=== PATIENT | male | born 1935 | race Caucasian/White ===

== ENCOUNTER → 2016-09-18 13:54 | Outpatient (CLI) | payer MEDICARE ==
[2011-08-13 06:38] VITALS: BMI 32.6
== END | disposition home or self-care (01) ==
LOC: D.US 13:54
DX: M79.672 Pain in left foot (principal); M79.671 Pain in right foot

== ENCOUNTER → 2018-02-10 11:41 | Outpatient (CLI) | payer MEDICARE ==
[2011-08-13 06:38] VITALS: BMI 32.6
[2018-02-10 13:01] LABS: INR 2.06 (0.85-1.17); PROTIME 22.9 SECONDS (11.6-15.0)
== END | disposition home or self-care (01) ==
LOC: D.LABREF 11:41
PROVIDERS: Emergency Medicine
DX: Z51.81 Encounter for therapeutic drug level monitoring (principal); Z79.01 Long term (current) use of anticoagulants

== ENCOUNTER → 2018-02-24 10:46 | Outpatient (CLI) | payer MEDICARE ==
[2011-08-13 06:38] VITALS: BMI 32.6
[2018-02-24 13:14] LABS: INR 3.15 (0.85-1.17); PROTIME 31.6 SECONDS (11.6-15.0)
== END | disposition home or self-care (01) ==
LOC: D.LABREF 10:46
PROVIDERS: Emergency Medicine
DX: Z79.01 Long term (current) use of anticoagulants (principal); I48.91 Unspecified atrial fibrillation

== ENCOUNTER → 2018-03-10 11:42 | Outpatient (CLI) | payer MEDICARE ==
[2011-08-13 06:38] VITALS: BMI 32.6
[2018-03-10 14:00] LABS: INR 2.52 (0.85-1.17); PROTIME 26.4 SECONDS (11.6-15.0)
== END | disposition home or self-care (01) ==
LOC: D.LABREF 11:42
PROVIDERS: Emergency Medicine
DX: Z51.81 Encounter for therapeutic drug level monitoring (principal); Z79.01 Long term (current) use of anticoagulants

== ENCOUNTER → 2018-03-24 13:11 | Outpatient (CLI) | payer MEDICARE ==
[2011-08-13 06:38] VITALS: BMI 32.6
[2018-03-24 16:26] LABS: INR 2.96 (0.85-1.17); PROTIME 30.1 SECONDS (11.6-15.0)
== END | disposition home or self-care (01) ==
LOC: D.LABREF 13:11
PROVIDERS: Emergency Medicine
DX: Z51.81 Encounter for therapeutic drug level monitoring (principal); Z79.01 Long term (current) use of anticoagulants; Z86.718 Personal history of other venous thrombosis and embolism

== ENCOUNTER → 2018-04-08 12:01 | Outpatient (CLI) | payer MEDICARE ==
[2011-08-13 06:38] VITALS: BMI 32.6
[2018-04-08 13:26] LABS: INR 3.3 (0.85-1.17); PROTIME 32.8 SECONDS (11.6-15.0)
== END | disposition home or self-care (01) ==
LOC: D.LABREF 12:01
PROVIDERS: Emergency Medicine
DX: R79.1 Abnormal coagulation profile (principal)

== ENCOUNTER → 2018-04-14 14:13 | Outpatient (CLI) | payer MEDICARE ==
[2011-08-13 06:38] VITALS: BMI 32.6
[2018-04-14 15:29] LABS: INR 2.88 (0.85-1.17); PROTIME 29.4 SECONDS (11.6-15.0)
== END | disposition home or self-care (01) ==
LOC: D.LABREF 14:13
PROVIDERS: Emergency Medicine
DX: Z51.81 Encounter for therapeutic drug level monitoring (principal); Z79.01 Long term (current) use of anticoagulants

== ENCOUNTER → 2018-04-21 14:17 | Outpatient (CLI) | payer MEDICARE ==
[2011-08-13 06:38] VITALS: BMI 32.6
[2018-04-21 17:44] LABS: INR 3.12 (0.85-1.17); PROTIME 31.3 SECONDS (11.6-15.0)
== END | disposition home or self-care (01) ==
LOC: D.LABREF 14:17
PROVIDERS: Emergency Medicine
DX: Z51.81 Encounter for therapeutic drug level monitoring (principal); Z79.01 Long term (current) use of anticoagulants

== ENCOUNTER → 2018-05-05 12:48 | Outpatient (CLI) | payer MEDICARE ==
[2011-08-13 06:38] VITALS: BMI 32.6
[2018-05-05 13:10] LABS: INR 2.53 (0.85-1.17); PROTIME 26.6 SECONDS (11.6-15.0)
== END | disposition home or self-care (01) ==
LOC: D.LABREF 12:48
PROVIDERS: Emergency Medicine
DX: Z51.81 Encounter for therapeutic drug level monitoring (principal); Z79.01 Long term (current) use of anticoagulants; Z86.718 Personal history of other venous thrombosis and embolism

== ENCOUNTER → 2018-06-29 16:42 | Outpatient (CLI) | payer MEDICARE ==
[2011-08-13 06:38] VITALS: BMI 32.6
[2018-06-29 17:22] LABS: INR 1.2 (0.85-1.17); PROTIME 14.7 SECONDS (11.6-15.0)
== END | disposition home or self-care (01) ==
LOC: D.LABREF 16:42
PROVIDERS: ATTEND Emergency Medicine
DX: Z51.81 Encounter for therapeutic drug level monitoring (principal); Z79.01 Long term (current) use of anticoagulants

== ENCOUNTER → 2018-07-30 13:36 | Outpatient (CLI) | payer MEDICARE ==
[2011-08-13 06:38] VITALS: BMI 32.6
[2018-07-30 15:25] LABS: INR 1.45 (0.85-1.17); PROTIME 17.1 SECONDS (11.6-15.0)
== END | disposition home or self-care (01) ==
LOC: D.LABREF 13:36
PROVIDERS: ATTEND Emergency Medicine
DX: C95.90 Leukemia, unspecified not having achieved remission (principal); Z51.81 Encounter for therapeutic drug level monitoring; Z79.01 Long term (current) use of anticoagulants

== ENCOUNTER 2018-12-26 17:52 | Inpatient (IN) | payer MEDICARE ==
[~2018-12-26] VITALS: Ht 172.7 cm; Wt 78.1 kg
--- NOTE | ~2018-12-26 | HEMODYNAMI ---
PATIENT:JOSE ROTHMAN MEDICAL RECORD: [id number] : 39 LOCATION:[facility] D.2124 [facility]# [id number] ADMISSION DATE: 12/27/18 Generatedon:01/04/201915:16 Patient name: JOSE ROTHMAN Patient #: [id number] SSN: [id number] : 1935 Date of study: 01/04/2019 Page: Of Hemodynamic Procedure Report Patient Data Patient Demographics Procedure consent was obtained First Name: JOSE Gender: Male Last Name: LORNA : 1935 Middle Initial: W Age: 83 year(s) Patient #: [id number] Race: SSN: [id number] Additional ID: [id number] Contact details [address]: [address] [place] [address] State: [place] City: [place] Zip code: [address] Admission Admission Data Admission Date: 12/27/2018 Admission Time: 18:30 Arrival Date: 12/26/2018 Arrival Time: 21:09 Admit Source: Emergency Insurance Payor: Medicare, department Private health insurance Room #: D.2124 [facility] #: [id number] Height (in.): 68 BSA: 1.89 (m2) Height (cm.): 172.72 BMI: 25.39 (kg/m2) Weight (lbs.): 167 Weight (kg.): 75.75 Lab Results Lab Result Date: 01/04/2019 Lab Result Time: 0:00 Biochemistry Name Units Result Min Max BUN mg/dl 58 --(----)-* 7 18 Creatinine mg/dl 1.7 --(----)-* 0.6 1.3 eGFR ml/min 41 *-(----)-- 90 120 NONAFRICAN CBC Name Units Result Min Max Hemoglobin g/dl 9.5 *-(----)-- 13.5 17.5 Procedure Procedure Types Cath Procedure Peripheral Cath Diagnostic Procedure Product Inspection Coordinator Peripheral Procedures Abd/Extremity Extremities Right Lower Ext Arterio Peripheral vascular Intervention Stent Stent-Fem/Popw/plasty Procedure Description Procedure Date Procedure Date: 01/04/2019 Procedure Start Time: 14:30 Procedure End Time: 15:08 Procedure Staff Name Function Jake Borges MD Performing Physician Idania Canales RT Monitor Josselyn Olson RT Scrub Monica Galvez RN Nurse Parminder Garcia RN Nurse Procedure Data Cath Procedure Fluoroscopy Diagnostic fluoroscopy Total fluoroscopy Time: 9.7 time: 9.7 min min Diagnostic fluoroscopy Total fluoroscopy dose: 225 dose: 225 mGy mGy Contrast Material Contrast Material Type Amount (ml) Isovue 300 50 Entry Location Entry Primary Successful Side Size Upsize Upsize Entry Closure Succes sful Closure Location (Fr) 1 (Fr) 2 (Fr) Remarks Device Remarks Femoral Right 6 Fr 6 Fr 6 Fr Exoseal artery Short Long Short Estimated blood loss: 5 ml Diagnostic catheters Device Type Used For End Catheter Placement DIAGNOSTIC IM 5Fr Multi-vessel catheter ([id number]) Angiography Procedure Complications No complications Procedure Medications Medication Administration Route Dosage 0.9% NaCl I.V. 100 ml/hr Oxygen etCO2 Nasal cannula 2 l/min Lidocaine 2% added to field 20 Heparin Flush Bag added to field 2 bags (1000units/500ml NS) Versed I.V. 2 mg Fentanyl I.V. 25 mcg Heparin Bolus I.V. 5000 units Fentanyl I.V. 50 mcg Fentanyl I.V. 25 mcg Hemodynamics Rest BSA: 1.89 (m2) HGB: 9.5 (g/dl) O2 Consumption: Estimated: 223.19 (ml/min) O2 Con sumption indexed: Estimated:118.09 (ml/min/m) Heart Rate: 81 (bpm) Snapshots Pre Cath Intra NCS Post Cath Vital Signs Time Heart Resp SPO2 etCO2 NIBP (mmHg) Rhythm Pain Sedation Rate (ipm) (%) (mmHg) Status Level (bpm) 14:18:05 79 13 97 25 146/78(118) NSR 0 (11) 10(A) , No pain 14:22:23 79 15 97 11.2 155/78(113) NSR 0 (11) 10(A) , No pain 14:26:44 80 20 98 2.2 156/79(110) NSR 0 (11) 9(A) , No pain 14:31:00 84 15 98 16.4 151/73(113) NSR 0 (11) 9(A) , No pain 14:35:18 81 17 98 21.6 144/76(117) NSR 0 (11) 9(A) , No pain 14:39:36 78 19 98 17.1 150/75(123) NSR 0 (11) 9(A) , No pain 14:43:58 81 16 98 19.4 145/68(102) NSR 0 (11) 9(A) , No pain 14:48:16 77 18 99 17.9 140/75(109) NSR 0 (11) 9(A) , No pain 14:52:34 76 30 99 11.9 149/69(112) NSR 0 (11) 9(A) , No pain 14:56:54 75 29 99 11.9 152/74(111) NSR 0 (11) 9(A) , No pain 15:01:14 75 14 99 11.2 144/69(100) NSR 0 (11) 10(A) , No pain 15:05:34 77 21 100 20.9 144/68(108) NSR 0 (11) 10(A) , No pain Medications Time Medication Route Dose Verified Delivered Reason Notes Effectiveness by by 14:17:05 0.9% NaCl I.V. 100 Jake Monica used for ml/hr [facility] procedure MD MELARA 14:17:12 Oxygen etCO2 2 Jake Monica used for Nasal l/min [facility] procedure cannula MD MELARA 14:17:17 Lidocaine 2% added 20ml Jake Joseph for local to vial [facility] anesthetic field MD JONES 14:17:22 Heparin Flush added 2 Jake Jake used for Bag to bags [facility] procedure (1000units/500ml field MD JONES NS) 14:22:47 Versed I.V. 2 mg Jake Monica for sedation St Tereso Galvez MD, RN 14:22:57 Fentanyl I.V. 25 Jake Monica for sedation colin Valentine MD, RN 14:37:30 Heparin Bolus I.V. 5000 Jake Monica for verif ied units [facility] anticoagulation with Dr. MD MELARA [place] 14:55:36 Fentanyl I.V. 50 Jake Monica for sedation colin Valentine MD RN 15:06:28 Fentanyl I.V. 25 Jake Anderson for sedation [facility] [place] Tereso Galvez MD racing manager Log Time Note 13::19 Informed consent obtained and on chart 13::28 Diagnostic Cath Status : Elective 13::47 Patient Weight : 167 lbs 13::47 Patient Height : 68 inches 13:32:20 Monica Galvez RN sent for patient. Start room use. 13:32:21 Time tracking: Regular hours (M-F 7:00 - 5:00) 13:32:26 Plan of Care:Hemodynamics will remain stable., Cardiac rhythm will remain stable., Comfort level will be maintained., Respiratory function will remain adequate., Patient/ family verbilizes understanding of procedure., Procedure tolerated without complication., Recovers from procedure without complications.. 13:32:30 Procedure Status Peripheral. 14:03:39 Warm blankets applied, and jenna hugger turned on for patient comfort. 14:03:40 Correct patient and procedure confirmed by team. 14:03:41 ECG and BP/O2 sat monitors applied to patient. 14:04:11 Patient received from Zdorovio II to CCL 2 Alert and oriented. Tansferred to table in Supine position. 14:16:55 Vital chart was started 14:17:05 0.9% NaCl 100 ml/hr I.V. was administered by Monica Galvez RN; used for procedure; Verbal order read back and verified. 14:17:12 Oxygen 2 l/min etCO2 Nasal cannula was administered by Monica Galvez RN; used for procedure; Verbal order read back and verified. 14:17:17 Lidocaine 2% 20ml vial added to field was administered by Jake Borges MD; for local anesthetic; Verbal order read back and verified. 14:17:22 Heparin Flush Bag (1000units/500ml NS) 2 bags added to field was administered by Jake Borges MD; used for procedure; Verbal order read back and verified. 14:19:20 Baseline sample Acquired. 14:19:30 Rhythm: sinus rhythm 14:19:34 Full Disclosure recording started 14:19:38 H&P Date Dictated: 01/04/2019 Within 30 days and on chart.. 14:19:40 Pre-procedure instructions explained to patient. 14:19:40 Pre-op teaching completed and patient verbalized understanding. 14:19:42 Family in patients room. 14:19:47 Patient NPO since Midnight. 14:19:48 Is the patient allergic to Iodine/contrast media? No. 14:19:57 Was the patient premedicated? Yes 14:19:59 Is patient on blood thinner?Yes 14:20:02 ACC The patient was administered the following blood thiners within the last 24 hours: ACCPlavix 14:20:07 Patient diabetic? No. 14:20:10 Previous problem with sedation/anesthesia? No ? 14:20:11 Snore? Yes 14:20:12 Sleep apnea? Yes 14:20:13 Deviated septum? No 14:20:14 Opens mouth fully? Yes 14:20:14 Sticks out tongue? Yes 14:20:34 Airway obstruction? No ? 14:20:37 Dentures? No ? 14:20:42 Pre procedure: right dorsailis pedis pulse Doppler 14:20:54 Pre procedure: left dorsailis pedis pulse Doppler 14:20:57 Patient pain scale 0/10 ?. 14:21:06 IV patent on arrival in left forearm with 0.9% NaCl at [facility]. 14:21:09 Lab results completed and on chart. 14:21:33 Bilateral groins area was prepped with chlora-prep and draped in sterile fashion 14:21:34 Alarms reviewed by R. N. 14:21:34 Sharps counted by scrub and verified by R.N. 14:21:36 Physician arrived 14:21:37 --------ALL STOP TIME OUT------ 14:21:37 Final Timeout: patient, procedure, and site verified with staff and physician. All members of the team are in agreement. 14:21:42 Bilateral groins site verified by team. 14:21:46 Fire Safety Assessment: A--An alcohol-based skin anteseptic being used preoperatively., C--Open oxygen or nitrous oxide is being used., D--An ESU, laser, or fiber-optic light is being used. 14:22:04 Physical assessment completed. ASA score P 2 - A patient with mild systemic disease as per Jake Borges MD. 14:22:09 Sedation plan: IV Moderate Sedation Medication:Versed, Fentanyl 14:22:47 Versed 2 mg I.V. was administered by Monica Galvez RN; for sedation; Verbal order read back and verified. 14:22:57 Fentanyl 25 mcg I.V. was administered by Monica Galvez RN; for sedation; Verbal order read back and verified. 14:23:36 3b) 30-44 Moderately reduced kidney function. 14:24:04 Maximum allowable contrast dose (3.7 X eGFR X 0.75)113 ml. 14:24:08 Sedation plan: IV Moderate Sedation Medication:Versed, Fentanyl 14:24:22 Use device set Acist 14:24:25 ACIST Syringe (25219) opened to sterile field. 14:24:26 ACIST Hand Control (04909) opened to sterile field. 14:24:27 ACIST Manifold (79938) opened to sterile field. 14:25:10 GLIDE WIRE Super Stiff Angled 260cm ([id number]) opened to sterile field. 14:25:10 INFLATOR Merit BasixCompak (AT5712) opened to sterile field. 14:25:11 SHEATH 6FR Charlotte (XYK146) opened to sterile field. 14:26:34 Zero performed for pressure channel P1 14:28:40 Procedure started. 14:30:44 Local anesthetic to left femerol artery with Lidocaine 2% by Jake Borges MD.INITIAL ACCESS ONLY 14:31:32 A 6 Fr Short sheath was inserted into the Right Femoral artery 14:31:33 GUIDE 6FR RENARD 90 catheter ([id number]) opened to sterile field. 14:32:34 6 Fr RENARD guide catheter was inserted over the wire 14:32:48 Catheter removed. 14:34:51 A DIAGNOSTIC IM 5Fr catheter ([id number]) was advanced over the wire and used for Multi-vessel Angiography. 14:35:59 TORQUE DEVICE PLASTIC .038 ( TD01) opened to sterile field. 14:37:01 Right leg runoff performed. 14:37:30 Heparin Bolus 5000 units I.V. was administered by Monica Galvez RN; for anticoagulation; verified with Dr. Cruz Verbal order read back and verified. 14:40:26 Catheter removed. 14:40:35 Sheath upsized to a 6 Fr Long. 14:42:21 GLIDE wire advanced. 14:42:29 Wire advanced across lesion. 14:48:43 Inflate balloon Inflation number: 1 A POWERFLEX PRO 6.0 x 100 x 135cm balloon ([id number]) was prepped and advanced across the Mid Superficial Femoral, Right 100, then inflated to 10 JORGE LUIS for 0:30 (min:sec) . 14:51:11 Balloon removed over the wire. 14:54:43 SMART 6 X 120 X 120 stent ([id number]) was deployed across Mid Superficial Femoral, Right . 14:55:36 Fentanyl 50 mcg I.V. was administered by Monica Galvez RN; for sedation; Verbal order read back and verified. 14:56:46 SMART 6 X 120 X 120 stent ([id number]) was deployed across Mid Superficial Femoral, Right . 14:56:51 Stent catheter was removed intact over wire. 14:58:43 Inflation number: 2 The POWERFLEX PRO 6.0 x 100 x 135cm balloon ([id number]) was reinflated across the Mid Superficial Femoral, Right , to 12 JORGE LUIS for 0:30 (min:sec) . 14:59:19 Inflation number: 3 The POWERFLEX PRO 6.0 x 100 x 135cm balloon ([id number]) was reinflated across the Mid Superficial Femoral, Right , to 12 JORGE LUIS for 0:30 (min:sec) . 14:59:42 Balloon removed over the wire. 15:01:27 Sheath upsized to a 6 Fr Short. 15:01:30 ACT drawn and resulted at 277 seconds. (normal therapeutic range 180-240 seconds). 15:02:28 EXOSEAL 6Fr (EX600) opened to sterile field. 15:03:54 Wire removed. 15:04:29 Sheath removed intact; hemostasis achieved with Exoseal to the Right Femoral artery. 15:04:32 Procedure ended.(Physican Out) 15:04:37 Fluoroscopy time 09.70 minutes. 15:04:41 Flurop Dose total: 225 15:04:41 Fluoroscopy dose: 225 mGy 15:04:56 Dose Area Product 82307 mGy/cm. 15:05:02 Contrast amount:Isovue 300 50ml. 15:05:23 Sharps counted by scrub and verified by R.N. 15:05:35 Insertion/operative site no bleeding no hematoma. 15:05:40 Post-op/insertion site Left Femoral artery dressed using a 4 x 4 and Tegaderm. 15:06:04 Post Procedure Pulses reassessed and unchanged 15:06:10 Post procedure rhythm: unchanged. 15:06:24 Estimated blood loss: 5 ml 15:06:25 Post procedure instruction explained to patient.Patient verbalizes understanding. 15:06:26 Patient needs reinforcement of post procedure teaching. 15:06:28 Fentanyl 25 mcg I.V. was administered by Monica Galvez RN; for sedation; Verbal order read back and verified. 15:07:23 Procedure type changed to Cath procedure, Peripheral Cath Diagnostic Procedure, Product Inspection Coordinator Peripheral Procedures, Abd/Extremity, Extremities, Right Lower Ext Arterio, Peripheral vascular Intervention, Stent, Stent-Fem/Popw/plasty 15:08:16 Procedure and supply charges have been captured, reviewed, submitted and are correct. 15:08:20 Procedure Complication : No complications 15:08:23 Vital chart was stopped 15:08:27 AFRO Findings: PVD: SOUND INSTALLATION WORKER performed (see procedure notes) 15:08:29 Operative report dictated upon procedure completion. 15:08:29 See physician's report for complete and final results. 15:08:38 Report given to [facility]. 15:08:42 Patient transfered to [facility] with Stretcher. 15:08:52 Procedure ended. 15:08:52 Full Disclosure recording stopped 15:09:36 ACC-PCI Only Patient was given prescriptions, or instructed by Jake Borges MD to start/continue the following medications upon discharge: Plavix 15:09:37 End room use (Document Last) Intervention Summary Intervention Notes Time ActionType Lesion and Equipment Action# Pressure Duration Attributes Used 14:48:43 Inflate Mid POWERFLEX 1 10 00:30 balloon Superficial PRO 6.0 x Femoral, 100 x Right 135cm balloon ([id number]) 14:54:43 Deploy self Mid SMART 6 X 1 expanding Superficial 120 X 120 stent Femoral, stent Right ([id number]) 14:56:46 Deploy self Mid SMART 6 X 2 expanding Superficial 120 X 120 stent Femoral, stent Right ([id number]) 14:58:43 Reinflate Mid POWERFLEX 2 12 00:30 balloon Superficial PRO 6.0 x Femoral, 100 x Right 135cm balloon ([id number]) 14:59:19 Reinflate Mid POWERFLEX 3 12 00:30 balloon Superficial PRO 6.0 x Femoral, 100 x Right 135cm balloon ([id number]) Device Usage Item Name Manufacture Quantity Catalog Hospital Part Current Minimal Lo t# / Number Charge Number Stock Stock Serial# Code ACIST Acist 1 73404 951572 001164 202864 20 Syringe Medical (28224) Systems Inc ACIST Hand Acist 1 85604 660028 189046 092018 5 Control Medical (08758) Systems Inc ACIST Acist 1 45280 484025 942011 771804 5 Manifold Medical (47072) Systems Inc GLIDE WIRE Terumo 1 FO9340 925907 105244 443199 5 Super Stiff Angled 260cm (XC8369) INFLATOR Merit 1 CL9977 777790 197221 396902 15 [employer] Medical BasixCompak (UH4253) SHEATH 6FR Terumo 1 BGO604 495205 109114 001549 40 Charlotte (RKR199) GUIDE 6FR Medtronic 1 [id number] 590095 55352 368615 1 RENARD 90 catheter ([id number]) DIAGNOSTIC Cardinal 1 [id number] 929374 699673 970102 5 IM 5Fr Health catheter ([id number]) TORQUE [place] 1 TD01 157165 540454 041742 5 DEVICE Scientific PLASTIC .038 ( TD01) POWERFLEX Cardinal 1 [id number] 127317 336438 740166 5 PRO 6.0 x Health 100 x 135cm balloon ([id number]) SMART 6 X Cardinal 1 [id number] 756157 632884 300544 0 17 004010 120 X 120 Health stent ([id number]) EXOSEAL 6Fr Cardinal 1 EX600 685076 188718 283594 10 (EX600) Health Signature Audit [place] Stage Time Signature Unsigned Intra-Procedure 01/04/2019 Idania Canales 3:12:44 PM RT(R) Intra-Procedure 01/04/2019 Parminder 3:16:20 PM Radha MELARA Intra-Procedure 01/04/2019 Jake Landin 3:16:45 PM Tereso JONES Signatures Performing Physician : Signature : Jake Borges MD Date : Time : Monitor : Idania Parker RT Signature : Date : Time : Nurse : Monica Lenny RN Signature : Date : Time : Nurse : Parminder Lorigan Signature : RN Date : Time : [place] [address] [place] [address]
--- NOTE | ~2018-12-26 | HEMODYNAMI ---
PATIENT:JOSE ROTHMAN MEDICAL RECORD: [id number] : 39 LOCATION:[facility] D.2[address] [facility]# [id number] ADMISSION DATE: 12/26/18 Generatedon:12/27/201811:43 Patient name: JOSE ROTHMAN Patient #: [id number] SSN: [id number] : 1935 Date of study: 12/27/2018 Page: Of Hemodynamic Procedure Report Patient Data Patient Demographics Procedure consent was obtained First Name: JOSE Gender: Male Last Name: LORNA : 1935 Middle Initial: W Age: 83 year(s) Patient #: [id number] Race: SSN: [id number] Additional ID: [id number] Contact details [address]: [address] [place] [address] State: [place] City: [place] Zip code: [address] Admission Admission Data Admission Date: 12/26/2018 Admission Time: 21:09 Arrival Date: 12/26/2018 Arrival Time: 21:09 Admit Source: Emergency Insurance Payor: Medicare, department Private health insurance Room #: D.2129 [facility] #: [id number] Height (in.): 68 BSA: 1.89 (m2) Height (cm.): 172.72 BMI: 25.39 (kg/m2) Weight (lbs.): 167 Weight (kg.): 75.75 Lab Results Lab Result Date: 12/27/2018 Lab Result Time: 0:00 Biochemistry Name Units Result Min Max BUN mg/dl 22 --(----)-* 7 18 Creatinine mg/dl 1.3 --(---*)-- 0.6 1.3 eGFR ml/min 56 *-(----)-- 90 120 NONAFRICAN CBC Name Units Result Min Max Hemoglobin g/dl 10.4 *-(----)-- 13.5 17.5 Procedure Procedure Types Cath Procedure Diagnostic Procedure LHC LHC w/Coronaries Sedation Charges Moderate Sedation up to 45 minutes PCI Procedure Coronary Stent Coronary Stent Initial Peripheral Cath Diagnostic Procedure Supervisor Bakery Sanitation Peripheral Procedures Nsoyi-Qgkrqwn-Aea-Off Procedure Description Procedure Date Procedure Date: 12/27/2018 Procedure Start Time: 10:52 Procedure End Time: 11:31 Procedure Staff Name Function Jake Borges MD Performing Physician Idania Canales RT Monitor Kaia Pickett RT Scrub Jessica Lomas RN Nurse Procedure Data Cath Procedure Fluoroscopy Diagnostic fluoroscopy Total fluoroscopy Time: 9.9 time: 9.9 min min Diagnostic fluoroscopy Total fluoroscopy dose: 856 dose: 856 mGy mGy Contrast Material Contrast Material Type Amount (ml) Isovue 300 202 Entry Location Entry Primary Successful Side Size Upsize Upsize Entry Closure Succes sful Closure Location (Fr) 1 (Fr) 2 (Fr) Remarks Device Remarks Femoral Right 5 Fr 6 Fr 6 Fr Exoseal artery Long Short Estimated blood loss: 5 ml Diagnostic catheters Device Type Used For End Catheter Placement MULTIPACK JL 4.0 5Fr Left Coronary catheter Angiography MULTIPACK 3DRC 5Fr Right Coronary catheter Angiography DIAGNOSTIC AR1 MOD 5Fr Right Coronary catheter ([id number]) Angiography DIAGNOSTIC AR1 MOD 5Fr Right Coronary catheter ([id number]) Angiography DIAGNOSTIC AL1 5Fr LV Angiography catheter ([id number]) MULTIPACK Pigtail 5 Fr LV Angiography catheter DIAGNOSTIC UF 5Fr Multi-vessel catheter ([id number]) Angiography Procedure Complications No complications Procedure Medications Medication Administration Route Dosage Oxygen etCO2 Nasal cannula 2 l/min Lidocaine 2% added to field 20 Heparin Flush Bag added to field 2 bags (1000units/500ml NS) 0.9% NaCl I.V. 100 ml/hr Fentanyl I.V. 100 mcg Versed I.V. 2 mg Versed I.V. 1 mg Fentanyl I.V. 50 mcg Versed I.V. 1 mg Fentanyl I.V. 50 mcg Heparin Bolus I.V. 4000 units Integrilin (Bolus I.V. 6.8 ml 2mg/ml) 0.9% NaCl I.V. bolus 500 ml Plavix P.O. 600 mg Hemodynamics Rest BSA: 1.89 (m2) HGB: 10.4 (g/dl) O2 Consumption: Estimated: 218.52 (ml/min) O2 Co nsumption indexed: Estimated:115.62 (ml/min/m) Heart Rate: 74 (bpm) Pressure Samples Time Site Value (mmHg) Purpose Heart Use Rate(bpm) 11:10 LV 116/3,10 Snapshot 65 11:11 AO 76/35(50) Pullback 58 11:11 LV 109/9,12 Pullback 58 Gradients Valve Time Site 1 Site 2 Mean SEP/DFP Peak To Heart Use (mmHg) (sec/min) Peak Rate (mmHg) (bpm) Aortic 11:11 LV AO 29 20 33 58 109/9,12 76/35(50) Calculations Valve P-P Mean Valve Index Valve Source Name Gradient Area Flow (cm2) Aortic 33 29 33 29 Snapshots Pre Cath Intra NCS Post Cath Vital Signs Time Heart Resp SPO2 etCO2 NIBP (mmHg) Rhythm Pain Sedation Rate (ipm) (%) (mmHg) Status Level (bpm) 10:45:12 64 12 97 13.6 143/67(125) NSR 0 (11) 10(A) , No pain 10:49:31 59 14 97 1.5 126/60(111) NSR 0 (11) 10(A) , No pain 10:53:52 58 11 100 0 111/59(88) NSR 0 (11) 10(A) , No pain 10:58:06 56 16 100 0 113/59(94) NSR 0 (11) 9(A) , No pain 11:02:26 58 11 100 0 97/46(71) NSR 0 (11) 9(A) , No pain 11:06:40 58 11 100 0 90/45(66) NSR 0 (11) 9(A) , No pain 11:10:50 59 10 100 11.3 81/46(66) NSR 0 (11) 9(A) , No pain 11:14:58 57 11 100 8.3 81/45(66) NSR 0 (11) 9(A) , No pain 11:19:05 49 11 100 11.3 83/42(65) NSR 0 (11) 9(A) , No pain 11:23:15 57 10 100 3 77/41(56) NSR 0 (11) 9(A) , No pain 11:27:21 55 11 100 8.2 82/45(65) NSR 0 (11) 9(A) , No pain 11:31:27 61 12 100 10.5 101/52(88) NSR 0 (11) 10(A) , No pain Medications Time Medication Route Dose Verified Delivered Reason Notes Effectiveness by by 10:48:25 Oxygen etCO2 2 Jake Lopez used for Nasal l/min St Tereso Lomas RN procedure cannula 10:48:32 Lidocaine 2% added 20ml Jake Joseph for local to vial [facility] anesthetic field MD JONES 10:48:38 Heparin Flush added 2 Jake Joseph used for Bag to bags [facility] procedure (1000units/500ml field MD JONES NS) 10:48:47 0.9% NaCl I.V. 100 Jake Lopez Per physician ml/hr St Tereso Lomas RN, MD 10:51:14 Versed I.V. 2 mg Jake Lopez for sedation St Tereso Lomas RN, MD 10:51:50 Fentanyl I.V. 100 Jake Lopez for sedation mcg St Tereso Lomas RN, MD 10:55:15 Versed I.V. 1 mg Jake Lopez for sedation St Tereso Lomas RN, MD 10:55:19 Fentanyl I.V. 50 Jake Lopez for sedation mcg St Tereso Lomas RN, MD 11:03:01 0.9% NaCl I.V. 500 Jake Lopez Per physician bolus ml St Tereso Lomas RN, MD 11:04:35 Versed I.V. 1 mg Jake Lopez for sedation St Tereso Lomas RN, MD 11:04:39 Fentanyl I.V. 50 Jake Jefferyie for sedation mcg St Tereso Lomas RN, MD 11:12:58 Heparin Bolus I.V. 4000 Jake Lopez for verif ied units St Tereso Lomas RN anticoagulation with dr MD walker 11:13:09 Integrilin I.V. 6.8 Jake Lopez for waste d (Bolus 2mg/ml) ml St Tereso Lomas RN antiplatelet 3.2 ml MD therapy of vial 11:32:04 Plavix P.O. [address] for mg [address] Tereso Lomas RN antiplatelet therapy Procedure Log Time Note 10:21:43 Diagnostic Cath Status : Elective 10:24:20 Jessica Lomas RN sent for patient. Start room use. 10:24:21 Time tracking: Regular hours (M-F 7:00 - 5:00) 10:24:25 Plan of Care:Hemodynamics will remain stable., Cardiac rhythm will remain stable., Comfort level will be maintained., Respiratory function will remain adequate., Patient/ family verbilizes understanding of procedure., Procedure tolerated without complication., Recovers from procedure without complications.. 10:26:05 Informed consent obtained and on chart 10:29:43 Admit Source: Emergency department 10:29:47 Arrival Date: 12/26/2018 9:09:00 PM 10:29:55 Insurance Payor : Private health insurance, Medicare 10:30:21 Patient Weight : 167 lbs 10:30:25 Patient Height : 68 inches 10:30:30 Patient received from Med II to CCL 1 Alert and oriented. Tansferred to table in Supine position. 10:30:31 Warm blankets applied, and jenna hugger turned on for patient comfort. 10:30:31 Correct patient and procedure confirmed by team. 10:30:33 ECG and BP/O2 sat monitors applied to patient. 10:43:56 Vital chart was started 10:43:58 Baseline sample Acquired. 10:44:00 Full Disclosure recording started 10:44:04 H&P Date Dictated: 12/27/2018 New H&P dictated by physician.. 10:44:05 Pre-procedure instructions explained to patient. 10:44:06 Pre-op teaching completed and patient verbalized understanding. 10:44:08 Family in patients room. 10:44:10 Patient NPO since Midnight. 10:44:26 Is the patient allergic to Iodine/contrast media? No. 10:44:27 Was the patient premedicated? No 10:44:29 Is patient on blood thinner?No 10:44:32 Patient diabetic? No. 10:44:35 Previous problem with sedation/anesthesia? No ? 10:44:36 Snore? Yes 10:44:37 Sleep apnea? Yes 10:44:38 Deviated septum? No 10:44:39 Opens mouth fully? Yes 10:44:40 Sticks out tongue? Yes 10:44:57 Airway obstruction? No ? 10:45:01 Dentures? Yes in tight 10:46:35 Pre procedure: right dorsailis pedis pulse Doppler 10:46:38 Pre procedure: left dorsailis pedis pulse Doppler 10:46:40 Patient pain scale 0/10 ?. 10:46:47 IV patent on arrival in right forearm with 0.9% NaCl at [facility]. 10:46:49 Lab results completed and on chart. 10:46:54 Bilateral groins area was prepped with chlora-prep and draped in sterile fashion 10:46:56 Alarms reviewed by R. N. 10:46:57 Sharps counted by scrub and verified by R.N. 10:48:25 Oxygen 2 l/min etCO2 Nasal cannula was administered by Jessica Lomas RN; used for procedure; Verbal order read back and verified. 10:48:32 Lidocaine 2% 20ml vial added to field was administered by Jake Borges MD; for local anesthetic; Verbal order read back and verified. 10:48:38 Heparin Flush Bag (1000units/500ml NS) 2 bags added to field was administered by Jake Borges MD; used for procedure; Verbal order read back and verified. 10:48:47 0.9% NaCl 100 ml/hr I.V. was administered by Jessica Lomas RN; Per physician; Verbal order read back and verified. 10:50:34 Physician arrived 10:50:34 --------ALL STOP TIME OUT------ 10:50:35 Final Timeout: patient, procedure, and site verified with staff and physician. All members of the team are in agreement. 10:50:37 Bilateral groins site verified by team. 10:50:41 Fire Safety Assessment: A--An alcohol-based skin anteseptic being used preoperatively., C--Open oxygen or nitrous oxide is being used., D--An ESU, laser, or fiber-optic light is being used. 10:50:46 Physical assessment completed. ASA score P 2 - A patient with mild systemic disease as per Jake Borges MD. 10:51:01 3a) 45-59 Moderately reduced kidney function. 10:51:14 Versed 2 mg I.V. was administered by Jessica Lomas RN; for sedation; Verbal order read back and verified. 10:51:22 Maximum allowable contrast dose (3.7 X eGFR X 0.75)155 ml. 10:51:27 Sedation plan: IV Moderate Sedation Medication:Versed, Fentanyl 10:51:31 Procedure started. 10:51:50 Fentanyl 100 mcg I.V. was administered by Jessica Lomas RN; for sedation; Verbal order read back and verified. 10:52:36 Use device set Femoral Dx 10:52:37 ACIST Syringe (11424) opened to sterile field. 10:52:38 Bag Decanter (2002S) opened to sterile field. 10:52:38 Medline Cath Pack ([id number]) opened to sterile field. 10:52:39 ACIST Hand Control (91279) opened to sterile field. 10:52:40 ACIST Manifold (82376) opened to sterile field. 10:52:40 DIAGNOSTIC Multipack 5Fr catheter set ([id number]) opened to sterile field. 10:52:41 Tegaderm 4 x 4 (1626W) opened to sterile field. 10:52:42 SHEATH 5FR Shamrock (BMR141) opened to sterile field. 10:52:42 EMERALD Guide Wire (871-863) opened to sterile field. 10:52:56 Local anesthetic to right femoral artery with Lidocaine 2% by Jake Borges MD.INITIAL ACCESS ONLY 10:53:05 A 5 Fr sheath was inserted into the Right Femoral artery 10:55:04 A MULTIPACK JL 4.0 5Fr catheter was advanced over the wire and used for Left Coronary Angiography. 10:55:15 Versed 1 mg I.V. was administered by Jessica Lomas RN; for sedation; Verbal order read back and verified. 10:55:19 Fentanyl 50 mcg I.V. was administered by Jessica Lomas RN; for sedation; Verbal order read back and verified. 10:55:35 Injector settings: Ml/sec: 3, Volume: 6, 10:56:42 Catheter removed. 10:56:47 A MULTIPACK 3DRC 5Fr catheter was advanced over the wire and used for Right Coronary Angiography. 10:58:08 Catheter removed. unable to cannulate vessel. 10:59:05 A DIAGNOSTIC AR1 MOD 5Fr catheter ([id number]) was advanced over the wire and used for Right Coronary Angiography. 11:01:13 Catheter removed. unable to cannulate vessel. 11:01:24 SHEATH 6FR Destination (RSR01) opened to sterile field. 11:02:03 Sheath upsized to a 6 Fr Long. 11:02:30 SHEATH 6FR Shamrock (WVF083) opened to sterile field. 11:02:44 INFLATOR Merit BasixCompak (EK3261) opened to sterile field. 11:02:45 WHISPER 300cm guide wire ([id number]) opened to sterile field. 11:03:01 0.9% NaCl 500 ml I.V. bolus was administered by Jessica Lomas RN; Per physician; Verbal order read back and verified. 11:03:39 A DIAGNOSTIC AR1 MOD 5Fr catheter ([id number]) was advanced over the wire and used for Right Coronary Angiography. 11:04:25 RCA angiography performed. 11:04:28 Injector settings: Ml/sec: 3, Volume: 6, 11:04:30 Catheter removed. 11:04:35 Versed 1 mg I.V. was administered by Jessica Lomas RN; for sedation; Verbal order read back and verified. 11:04:39 Fentanyl 50 mcg I.V. was administered by Jessica Lomas RN; for sedation; Verbal order read back and verified. 11:04:40 A MULTIPACK Pigtail 5 Fr catheter was advanced over the wire and used for LV Angiography. 11:04:40 Zero performed for pressure channel P1 11:04:48 Zero performed for pressure channel P1 11:07:40 Catheter removed. unable to cannulate vessel. 11:08:32 A DIAGNOSTIC AL1 5Fr catheter ([id number]) was advanced over the wire and used for LV Angiography. 11:08:51 ROADRUNNER .035 260 glide wire ([id number]) opened to sterile field. 11:09:49 attempting to use 5F al 1 and roadrunner to cross valve 11:11:03 LV hemodynamics recorded. 11:11:05 LV gram done using AVALOS 11:11:12 EF : 55 % 11:11:31 Catheter removed. 11:11:41 Proceeding to intervention. 11:11:47 ACC Pre-intervention GOKUL Flow is 3. 11:12:06 Pre PCI Site: [place] pLAD has 90% stenosis. 11:12:13 6 Fr xblad 3.5 guide catheter was inserted over the wire 11:12:24 whisper wire advanced. 11:12:58 Heparin Bolus 4000 units I.V. was administered by Jessica Lomas RN; for anticoagulation; verified with dr walker Verbal order read back and verified. 11:13:09 Integrilin (Bolus 2mg/ml) 6.8 ml I.V. was administered by Jessica Lomas RN; for antiplatelet therapy; wasted 3.2 ml of vial Verbal order read back and verified. 11:16:53 Wire advanced across lesion. 11:18:29 Place stent Inflation Number: 1 A COBRA RX 3.0 X 18 Stent was prepped and advanced across the Prox LAD 90. The stent was deployed at 14 JORGE LUIS for 0:30 (min:sec) 0. 11:18:54 Stent catheter was removed intact over wire. 11:18:54 Wire removed. 11:18:55 Guide catheter removed. 11:24:56 ACT drawn and resulted at 321 seconds. (normal therapeutic range 180-240 seconds). 11:25:01 ACC Post-intervention GOKUL Flow is 3. 11:25:11 Post PCI Site: [place] pLAD has 0% stenosis. 11:25:30 Sheath upsized to a 6 Fr Short. 11:25:35 A DIAGNOSTIC UF 5Fr catheter ([id number]) was advanced over the wire and used for Multi-vessel Angiography. 11:26:19 Abdominal angiogram w/ runoff was performed. 11:28:23 Catheter removed. 11:28:31 EXOSEAL 6Fr (EX600) opened to sterile field. 11:28:45 Sheath removed intact; hemostasis achieved with Exoseal to the Right Femoral artery. 11:28:47 Procedure ended.(Physican Out) 11:29:35 Fluoroscopy time 09.90 minutes. 11:29:40 Fluoroscopy dose: 856 mGy 11:29:40 Flurop Dose total: 856 11:29:49 Dose Area Product 58544 mGy/cm. 11:30:29 Contrast amount:Isovue 300 202ml. 11:30:33 Maximum allowable dose exceeded? Yes. 11:30:34 Sharps counted by scrub and verified by R.N. 11:30:36 Insertion/operative site no bleeding no hematoma. 11:30:39 Post-op/insertion site Right Femoral artery dressed using a 4 x 4 and Tegaderm. 11:30:43 Post right femoral artery:stable 11:30:45 Post Procedure Pulses reassessed and unchanged 11:30:48 Post procedure rhythm: unchanged. 11:30:50 Estimated blood loss: 5 ml 11:30:52 Post procedure instruction explained to patient.Patient verbalizes understanding. 11:30:53 Patient needs reinforcement of post procedure teaching. 11:31:20 Procedure type changed to Cath procedure, Diagnostic procedure, LHC, LHC w/Coronaries, Sedation Charges, Moderate Sedation up to 45 minutes, PCI procedure, Coronary Stent, Coronary Stent Initial, Peripheral Cath Diagnostic Procedure, Supervisor [employer] Sanitation Peripheral Procedures, Fxgyq-Nrpsimr-Doq-Off 11:31:22 Procedure and supply charges have been captured, reviewed, submitted and are correct. 11:31:29 Procedure Complication : No complications 11:31:32 Vital chart was stopped 11:31:34 See physician's report for complete and final results. 11::42 Report given to [facility]. 11::44 Patient transfered to [facility] with Stretcher. 11:31:48 Procedure ended. 11:31:48 Full Disclosure recording stopped 11:32:04 Plavix 600 mg P.O. was administered by Jessica Lomas RN; for antiplatelet therapy; Verbal order read back and verified. 11:32:09 ACC-PCI Only Patient was given prescriptions, or instructed by Jake Borges MD to start/continue the following medications upon discharge: Plavix 11:32:11 End room use (Document Last) 11:35:29 Lab Result : Hemoglobin 10.4 g/dl 11:35:29 Lab Result : eGFR NONAFRICAN 56 ml/min 11:35:29 Lab Result : BUN 22 mg/dl 11:35:29 Lab Result : Creatinine 1.3 mg/dl Intervention Summary Intervention Notes Time ActionType Lesion and Equipment Action# Pressure Duration Attributes Used 11:18:29 Place stent Prox LAD COBRA RX 1 14 00:30 3.0 X 18 Stent Device Usage Item Name Manufacture Quantity Catalog Hospital Part Current Minimal Lot# / Number Charge Number Stock Stock Serial# Code ACIST Syringe Acist 1 38330 416641 671295 059064 20 (07457) Medical Systems Inc Bag Decanter Microtek 1 970254 19884 981201 5 () Medical Inc. Medline Cath Medline 1 [id number] 946924 35013 483189 5 Pack ([id number]) ACIST Hand Acist 1 23865 030215 700358 666103 5 Control Medical (68246) Systems Inc ACIST Manifold Acist 1 49029 834324 609977 759321 5 (21107) Medical Systems Inc DIAGNOSTIC Cardinal 1 QV3813 976100 05334 112127 30 Multipack 5Fr Health catheter set (EB1287) Tegaderm 4 x 4 3M 1 1626W 049056 336470 062546 5 (1626W) SHEATH 5FR Terumo 1 BSO242 215057 955363 726446 5 Shamrock (TOG201) EMERALD Guide Cardinal 1 502-455 690451 067622 271990 5 Wire (502-455) Health MULTIPACK JL Cardinal 1 044946 5 4.0 5Fr Health catheter MULTIPACK 3DRC Cardinal 1 419219 5 5Fr catheter Health DIAGNOSTIC AR1 Cardinal 1 [id number] 548211 198991 532123 15 MOD 5Fr Health catheter (438020V) SHEATH 6FR Terumo 1 RSR01 759974 96729 997191 5 Destination (RSR01) SHEATH 6FR Terumo 1 GEH632 395770 070429 822806 40 Shamrock (MDE972) INFLATOR Merit Merit 1 JR4227 786782 939261 962568 15 [facility] (MI6940) WHISPER 300cm Richards 1 [id number] 288496 258031 575682 5 guide wire Vascular (9251101UY) DIAGNOSTIC AL1 Cardinal 1 191721D 178658 253328 128203 15 5Fr catheter Health (233026L) [facility] 1 D88539 203644 529718 578939 5 .035 260 glide wire (C70752) COBRA RX 3.0 X Celonova 1 212-91-85362 679521 [id number] 56040732 1 [id number] 18 stent Biosciences () MULTIPACK Cardinal 1 276696 5 Pigtail 5 Fr Health catheter DIAGNOSTIC UF Cardinal 1 [id number] 845552 870465 762209 10 5Fr catheter Health (022511G4) EXOSEAL 6Fr Cardinal 1 EX600 949711 845001 643934 10 (EX600) Health Signature Audit [place] Stage Time Signature Unsigned Intra-Procedure 12/27/2018 Idania Canales 11:41:25 AM RT(R) Intra-Procedure 12/27/2018 Jessica Lomas RN 11:42:59 AM Intra-Procedure 12/27/2018 Jake Landin 11:43:47 AM Tereso JONES [address] [id number] [place] [address]
[2018-12-26 18:59] LABS: BASOPHILS 0.7 % (0-2); HEMATOCRIT 32.4 % (42.0-54.0); HEMOGLOBIN 10.9 g/dL (13.5-17.5); IMMATURE GRANULOCYTES 0.1 % (0-5); LYMPHOCYTES 16.8 % (15-50); MCH 33.6 pg (26.0-34.0); MCHC 33.6 g/dL (31.0-37.0); MEAN PLATELET VOLUME 11.1 fL (7.4-10.4); MONOCYTES 7.2 % (2-11); NEUTROPHILS 72.2 % (40-80); PLATELET COUNT 154 10x3/uL (130-400); RBC 3.24 10x6/uL (4.20-6.10); RDW 14.4 % (11.5-14.5)
[2018-12-26 19:08] LABS: APTT 29.9 SECONDS (22.8-39.4); INR 1.44 (0.85-1.17)
[2018-12-26 19:09] LABS: D-DIMER-QUANTITATIVE 1.13 ug/mLFEU (0.20-0.54)
[2018-12-26 19:12] LABS: ALBUMIN 3.8 g/dL (3.4-5.0); ANION GAP 11.5 mmol/L (8-16); BILIRUBIN - TOTAL 1.2 mg/dL (0.2-1.3); CALCIUM 8.6 mg/dL (8.5-10.1); CARBON DIOXIDE 31.2 mmol/L (21.0-32.0); CREATININE - SERUM 1.4 mg/dL (0.6-1.3); POTASSIUM - SERUM 3.7 mmol/L (3.5-5.1); PROTEIN - SERUM 6.8 g/dL (6.4-8.2)
[2018-12-26 19:36] VITALS: BP 147/73
[2018-12-26 20:30] VITALS: BP 134/62
[2018-12-26 21:30] VITALS: BP 150/70
[2018-12-26 21:39] LABS: TROPONIN-I 0.087 ng/mL (0.000-0.060)
--- NOTE | 2018-12-26 22:50 | NUR ---
ARRIVES VIA STRETCHER AND TO BED SR X2 AND LCTA SKIN WARM AND DRY PT DENIES CP AND STAES ITS SHOULDER PAIN IN THE RT SHOULDER. BED LOW AND LOCKED AND CALL LIGHT PROVIDED
[2018-12-27] VITALS (7 sets, daily range): BP systolic 123–162; BP diastolic 53–80; BMI 25.4
--- NOTE | 2018-12-27 00:30 | NUR ---
ADMISSION ASSESSMENT COMPLETED AT THIS TIME..
[2018-12-27 06:33] LABS: BASOPHILS 0.7 % (0-2); EOSINOPHILS 6.4 % (0-7); HEMATOCRIT 30.9 % (42.0-54.0); HEMOGLOBIN 10.4 g/dL (13.5-17.5); IMMATURE GRANULOCYTES 0.2 % (0-5); LYMPHOCYTES 20.2 % (15-50); MCH 33.4 pg (26.0-34.0); MCHC 33.7 g/dL (31.0-37.0); MCV 99.4 fL (80.0-100.0); MONOCYTES 7.3 % (2-11); NEUTROPHILS 65.2 % (40-80); PLATELET COUNT 138 10x3/uL (130-400); RBC 3.11 10x6/uL (4.20-6.10); RDW 14.3 % (11.5-14.5)
[2018-12-27 06:50] LABS: WBC 4.3 10x3/uL (4.8-10.8)
[2018-12-27 07:00] LABS: ALBUMIN 3.1 g/dL (3.4-5.0); ANION GAP 10.9 mmol/L (8-16); BILIRUBIN - TOTAL 1.21 mg/dL (0.2-1.3); CREATININE - SERUM 1.3 mg/dL (0.6-1.3); POTASSIUM - SERUM 3.9 mmol/L (3.5-5.1); PROTEIN - SERUM 5.6 g/dL (6.4-8.2)
[2018-12-27 07:04] LABS: TROPONIN-I 0.129 ng/mL (0.000-0.060)
--- NOTE | 2018-12-27 07:14 | NUR ---
RECIEVE REPORT. RESTING IN BED. ALERT AND ORIENTED X4. SINUS RYTHM ON TELEMETRY. RESPIRATIONS EVEN AND REGULAR. DENIES ANY NEEDS AT THIS TIME. CONTINUE PLAN OF CARE AND SAFETY PRECAUTIONS.
--- NOTE | 2018-12-27 10:27 | NUR ---
ALERT AND ORIENTED X4. SITTING UP IN BED. CONSENTS FOR COLD WORK OPERATOR SIGNED SIGNED ON CHART. TAKEN TO COLD WORK OPERATOR VIA BED. CONTINUE PLAN OF CARE AND SAFETY PRECAUTIONS.
--- NOTE | 2018-12-27 12:06 | NUR ---
ARRIVE BACK TO ROOM VIA BED FROM FIELD REPORTER. ALERT AND ORIENTED X4. BP-127/66, HR-52 SINUS STEFANY, 02-95% WITH 2L NC. PULSE PALPABLE BILATERALLY. FEMSTOP ON RT GROIN. FREE FROM BLEEDING. FREE FROM HEMATOMA. DENIES ANY NEEDS AT THIS TIME. ENCOURAGE TO REMAIN FLAT FOR NEXT 4 HOURS DUE TO INCREASE RISK FOR BLEEDING.
--- NOTE | 2018-12-27 17:47 | NUR ---
ALERT AND ORIENTED X4. FEMSTOP OFF. HOB 40 DEGREES. RT GROIN DRESSING CLEAN DRY INTACT. FREE FROM BLEEDING. FREE FROM HEMATOMA. SINUS STEFANY ON TELEMETRY. DENIES ANY NEEDS AT THIS TIME. CONTINUE PLAN OF CARE AND SAFETY PRECAUTIONS.
--- NOTE | 2018-12-27 19:29 | NUR ---
RECIEVED UP IN BED WITH HOB ELEVATED. ALERT AND ORIENTED X4, O2@ 2 LITERS PER N/C IN PLACE. IV TO RIGHT AC SL.. DSG TO RIGHT GROIN CDI. SOME BRUISING TO AREA. TELEMETRY IN PLACE. DENIES ANY NEEDS AT THIS TIME.
[2018-12-28] VITALS: BP 121/61
[2018-12-28 02:35] LABS: APPEARANCE CLEAR (CLEAR); BILIRUBIN NEGATIVE (NEGATIVE); COLOR YELLOW (YELLOW); GLUCOSE NEGATIVE (NEGATIVE); KETONE NEGATIVE (NEGATIVE); NITRITE NEGATIVE (NEGATIVE); PROTEIN NEGATIVE (NEGATIVE); UROBILINOGEN NORMAL (NORMAL)
[2018-12-28 04:00] VITALS: BP 175/88
--- NOTE | 2018-12-28 07:30 | NUR ---
RECIEVE REPORT. SITTING UP IN BED. ALERT AND ORIENTED X4. DENIES SOB. DENIES ANY NEEDS AT THIS TIME. NO SIGNS OF DISTRESS. RT GROIN REMAINS FREE FROM BLEEDING. FREE FROM HEMATOMA. CONTINUE PLAN OF CARE AND SAFETY PRECAUTIONS. SINUS RYTHM 77 ON TELEMETRY.
[2018-12-28 08:45] VITALS: BP 132/64
[2018-12-28 12:45] VITALS: BP 111/54
--- NOTE | 2018-12-28 13:25 | NUR ---
ALERT AND ORIENTED X4. SITTING UP IN BED. PAGE REGARDING DISCHARGE.
[2018-12-28] MEDS ORDERED: GLEEVEC100 MG PO (13:38)
[2018-12-28] MEDS ORDERED: ZETIA10 MG PO (13:39)
[2018-12-28] MEDS ORDERED: FUROSEMIDE40 MG PO (13:40)
[2018-12-28] MEDS ORDERED: HCTZ PO (13:41)
[2018-12-28] MEDS ORDERED: LEVOTHYROXINE75 MCG PO (13:41)
[2018-12-28] MEDS ORDERED: LOSARTAN PO (13:41)
[2018-12-28] MEDS ORDERED: MECLIZINE HCL25 MG PO (13:42)
[2018-12-28] MEDS ORDERED: COUMADIN5 MG PO (13:42)
[2018-12-28] MEDS ORDERED: MAGNESIUM OXID250 MG PO (13:43)
[2018-12-28] MEDS ORDERED: TYLENOL ARTHRI650 MG PO (13:44)
[2018-12-28] MEDS ORDERED: POTASSIUM99 M1 PO (13:44)
[2018-12-28 16:46] VITALS: BP 103/50
--- NOTE | 2018-12-28 17:24 | NUR ---
ALERT AND ORIENTED X4. TRANSFER FROM 2128 TO 2123 DUE TO GILL SEEN IN ROOM. SINUS RYTHM ON TELEMETRY. DENIES ANY NEEDS. CONTINUE PLAN OF CARE AND SAFETY PRECAUTIONS. PHYSICAL THERAPY ORDERED TO PREVENT PHYSICAL DETERIORATION.
--- NOTE | 2018-12-28 19:24 | NUR ---
ASSESSMENT COMPLETE, PT A&O. IN BED WATCHING TV. RESPERATIONS EVEN AND NON-LABORED ON RA. IV TO RIGHT AC SL. SITE CLEAN AND DRY. PT DENIES PAIN OR NEEDS, BED LOW, CL IN REACH.
[2018-12-28 20:00] VITALS: BP 119/55
[2018-12-29] VITALS: BP 126/63
[2018-12-29 04:00] VITALS: BP 115/61
[2018-12-29 06:12] LABS: BASOPHILS 0.4 % (0-2); EOSINOPHILS 4.1 % (0-7); HEMATOCRIT 30.2 % (42.0-54.0); HEMOGLOBIN 10.2 g/dL (13.5-17.5); IMMATURE GRANULOCYTES 0.2 % (0-5); LYMPHOCYTES 13.2 % (15-50); MCH 33.3 pg (26.0-34.0); MCHC 33.8 g/dL (31.0-37.0); MCV 98.7 fL (80.0-100.0); MEAN PLATELET VOLUME 10.8 fL (7.4-10.4); MONOCYTES 8.2 % (2-11); NEUTROPHILS 73.9 % (40-80); PLATELET COUNT 113 10x3/uL (130-400); RBC 3.06 10x6/uL (4.20-6.10); RDW 14.5 % (11.5-14.5)
[2018-12-29 06:21] LABS: WBC 5.4 10x3/uL (4.8-10.8)
[2018-12-29 07:01] LABS: ANION GAP 10.2 mmol/L (8-16); CALCIUM 7.9 mg/dL (8.5-10.1); CARBON DIOXIDE 28.5 mmol/L (21.0-32.0); CREATININE - SERUM 1.3 mg/dL (0.6-1.3); POTASSIUM - SERUM 3.7 mmol/L (3.5-5.1)
[2018-12-29 08:00] VITALS: BP 130/66
--- NOTE | 2018-12-29 08:08 | NUR ---
AM MEDS GIVEN AT THIS TIME, PT IN BED, EATING BREAKFAST, DENIES ANY NEEDS AT THIS TIME. PT A/O X4, RESP A LITTLE SHALLOW ON 2L NC. RT AC IV SL. PT DENIES ANY NEEDS AT THIS TIME. BEDSIDE RAILS X2, CALL LIGHT IN REACH, NAD NOTED, WILL CONTINUE TO MONITOR.
--- NOTE | 2018-12-29 10:57 | NUR ---
BLU SMALLWOOD PT HELPED PT TO CHAIR. PT DENIES ANY NEEDS AT THIS TIME. CALL LIGHT IN REACH, NAD NOTED, WILL CONTINUE TO MONITOR.
--- NOTE | 2018-12-29 11:08 | EC ---
PATIENT:JOSE ROTHMAN DATE OF SERVICE: 12/27/18 SEX: M MEDICAL RECORD: [id number] DATE OF : 39 LOCATION:D.M2 D.212 AGE OF PATIENT: 83 ADMISSION DATE: 12/27/18 REFERRING PHYSICIAN: INTERPRETING PHYSICIAN: RICKEY CRUZ MD ECHOCARDIOGRAM REPORT ECHO CHARGES 4 ECHO COMPLETE Date: 12/27/18 CLINICAL DIAGNOSIS: AO MO ECHOCARDIOGRAPHIC MEASUREMENTS (adult normal given) AC root (d.<3.7cm) 2.9 cm LV Septum d (<1.2 cm> 1.5 cm Valve Excursion 1.5 cm LV Septum (systole) 1.6 cm Left Atria (s.<4.0cm> 3.0 cm LVPW d(<1.2cm) 1.1 cm RV (d.<2.3cm) 3.3 cm LVPW (sytole) 1.5 cm LV diastole(<5.6CM) 3.9 cm MV E-F(>70mm/sec) cm LV systole 2.8 cm LVOT Diameter 1.6 cm MV exc.(>10mm) cm Est.ejection fraction (50-75%) % DOPPLER: LVIT cm/sec A 52 cm/sec E 79 cm/sec LA cm/sec RVSP 23.2 mmHg LVOT 73 cm/sec AOP1/2T m/s Asc. Ao 337 cm/sec RVOT 60 cm/sec RA cm/sec PA 147 cm/sec AV Gradient Peak 45.5 mmHg AV Mean 28.5 mmHg AV Area 0.4 cm MV Gradient Peak 2.1 mmHg MV Mean 1.0 mmHg MV Area cm COMMENTS: Video Coordinator: April AGUIRRE Medical Physiologist: 3 Dr. Cruz TAPE# PACS Pericardial Effusion N DATE OF SERVICE: Adequate 2D, color flow, spectral Doppler, and M-Mode LVH is present. LV internal dimensions are normal. Wall motion is normal. EF is greater than or equal to 55%. Aortic valve is calcified with restriction of leaflet motion. Peak gradient of 46 mmHg. Calculated aortic valve area is 0.4 cm2 so this is in the severe range. Left atrium is normal at 3.7 cm. Mitral valve no prolapse. Trace MR. Right-sided chambers are grossly normal. Trace TR. ECHOCARDIOGRAM REPORT [id number] JOSE ROTHMAN TRANSINT:[id number] Voice Confirmation ID: [id number] DOCUMENT ID: [id number] RICKEY CRUZ MD at 1108 CC: [id number] DICTATION DATE: 12/28/181444 RESPIRATORY SUPPORT TECHNICIAN: 12/28/18 2355 ADM IN [facility] [address] [place] [address]
--- NOTE | 2018-12-29 11:08 | OP ---
PATIENT NAME: JOSE ROTHMAN MEDICAL RECORD: [id number] :39 LOCATION:D.M2 D.2124 ADMISSION DATE:12/27/18 SURGEON: RICKEY CRUZ MD DATE OF OPERATION: 12/27/2018 PROCEDURE: Left heart catheterization, selective coronary angiography, right femoral artery approach. CATHETERS: A 5-[place] Citizen sheath, 5/4 left and right Elisa, 5/4 pig. The procedure was well tolerated. The patient was returned to muse. Sheath was removed. Adequate hemostasis was obtained. Please note had to use a long sheath to cannulate secondary to tortuosity of the right iliac. FINDINGS: Left ventriculography in 30-degree AVALOS view: Normal wall motion. We had to use a Rotowire and an AR catheter to get across the aortic valve. There was a 30-mm gradient across the aortic valve. CORONARY ANATOMY: LEFT MAIN: Left main is free of disease. LAD: Shows 80% to 90% restenosis, obviously infarct related area. CIRCUMFLEX: Free of disease. RIGHT CORONARY ARTERY: Free of disease. At the end of the coronary angiography, the catheter was pulled to level of the renal arteries and abdominal aorta runoff was performed. Doppler shows no aneurysm, no evidence of dissection. There is some calcification of the abdominal aorta itself. Right internal iliac is quite tortuous. The femoral ____ in the superficial ____ itself distally before the distal runoff shows 80% to 90% stenosis, somewhat diffuse with 2-vessel runoff. Left iliac system, left internal and external iliac shows some wall disease. Left superficial femoral shows marked wall disease, but no flow obstructive stenosis and 2-vessel runoff. Intervention of the coronary. DESCRIPTION OF PROCEDURE: A long 6-[place] Citizen sheath was placed into the right femoral artery. An EBU 3.5 guiding catheter provided good guide catheter support followed by 300-cm Whisper wire was placed across the restenosed LAD down the more distal portion of this vessel. Stent deployed was a 3.0 x 18 mm Cobra up to 14 atmospheres for 45 seconds. Final angiography shows excellent resolution of 80% to 90% stenosis, no significant residual. Consider intervention to the right leg at a later date. We will plan a cardiac study to assess true significance of aortic stenosis. TRANSINT:[id number] Voice Confirmation ID: [id number] DOCUMENT ID: [id number] RICKEY CRUZ MD at 1108 CC: [id number] DICTATION DATE: 12/27/18 1237 ASSISTANT SHIFT SUPERVISOR: 12/27/18 2200 ADM IN [place] [address] [place] [address]
--- NOTE | 2018-12-29 11:08 | CN ---
PATIENT NAME:JOSE ROTHMAN MEDICAL RECORD: [id number] : 39 LOCATION:D. 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 He also has been having quite a bit of leg pain. This is a classic claudication symptomology to the point he can work 10 feet. He felt this might be related to recurrent DVT, presented to the ER. He was found to have no evidence of pulmonary embolus; however, cardiac enzymes subsequently elevated consistent with NSTEMI. We are asked to see him concerning his cardiovascular status. PAST MEDICAL HISTORY: Includes, 1. History of hypertension. 2. Hyperlipidemia. 3. Obstructive pulmonary disease. 4. 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 5. Coronary artery disease described above with percutaneous intervention. SOCIAL HISTORY: , lives in [place]. He is a nonsmoker and nondrinker. He is able to take care of his ADLs. Tries to exercise, but has had more limiting as of late from his claudication. ALLERGIES: TETANUS AND PENICILLIN. REVIEW OF SYSTEMS: The patient reports easy bruising but reports no swollen glands. The patient reports no fever, no night sweats, no significant weight gain, no significant weight loss. No significant exercise tolerance. The patient reports no dry eyes, no irritation, no vision change. Patient reports no difficulty hearing and no ear pain. Patient reports no frequent nose bleeds or nose and sinus problems. Patient reports on arm pain on exertion. No shortness of breath while lying down. No history of heart murmur. Patient reports no cough, no wheezing or coughing up blood. Patient reports no abdominal pain, no vomiting. Normal appetite. No diarrhea and not vomiting blood. No nausea and no constipation. Patient reports no incontinence. No difficulty urinating. No hematuria. No increased frequency. Patient reports no muscle aches. No weakness, no arthralgias, no back pain. No swelling of the extremities. Patient reports no abnormal mole, no jaundice, no rashes. Reports no loss of consciousness. No weakness and no numbness. No seizures, dizziness, or headaches. The patient reports no depression, no sleep disturbance, feeling safe in a relationship and no alcohol abuse. Patient reports on fatigue. Reports no runny nose or sinus pressure. No itching, no hives, and no frequent sneezing. PHYSICAL EXAMINATION: GENERAL: Pleasant gentleman, somewhat frail-appearing, but in no acute distress. VITAL SIGNS: Blood pressure 127/66, pulse 52 and regular. HEENT: Normocephalic, atraumatic. NECK: No bruits are noted. CONSULT REPORT [id number] JOSE ROTHMAN HEART: Regular, II/ systolic ejection murmur. LUNGS: Slight prolonged expiratory phase with few expiratory wheezes. ABDOMEN: Soft, nontender. EXTREMITIES: Pulses 2+. No edema. DIAGNOSTIC DATA: ECG shows minor ST-T changes. IMPRESSION: NSTEMI severe lifestyle limiting claudication, questionable aortic stenosis on exam. Plan for diagnostic angiography, aortofemoral runoff, and intervention as indicated. TRANSINT:[id number] Voice Confirmation ID: [id number] DOCUMENT ID: [id number] RICKEY CRUZ MD at 1108 CC: [id number] DICTATION DATE: 12/27/18 1233 FIRER ELECTRIC LOCOMOTIVE: 12/27/182137 ADM IN [place] [address] [place] [address]
[2018-12-29 11:35] LABS: INR 1.26 (0.85-1.17); PROTIME 15.2 SECONDS (11.6-15.0)
[2018-12-29 12:00] VITALS: BP 137/70
--- NOTE | 2018-12-29 12:56 | NUR ---
HELPED PT BACK TO CHAIR, FROM BATHROOM, PT WAS MODERATE ASSIST TO GET OFF COMMODE. PT DENIES ANY OTHER NEEDS AT THIS TIME. CALL LIGHT IN REACH, NAD NOTED, WILL COTNINUE TO MONITOR.
--- NOTE | 2018-12-29 13:40 | NUR ---
CALLED NAHED AND INFORMED HER ABOUT PT ASKING ABOUT HIS HOME MEDICATIONS, NEW ORDER TO START HOME MEDS.
[2018-12-29 16:00] VITALS: BP 150/68
[2018-12-29 20:35] VITALS: BP 145/59
[2018-12-30 00:45] VITALS: BP 139/66
[2018-12-30 04:30] VITALS: BP 144/66
[2018-12-30 06:20] LABS: BASOPHILS 0.2 % (0-2); EOSINOPHILS 4.9 % (0-7); HEMATOCRIT 29.9 % (42.0-54.0); HEMOGLOBIN 10.1 g/dL (13.5-17.5); LYMPHOCYTES 12.7 % (15-50); MCH 33.2 pg (26.0-34.0); MCHC 33.8 g/dL (31.0-37.0); MCV 98.4 fL (80.0-100.0); MEAN PLATELET VOLUME 11.2 fL (7.4-10.4); MONOCYTES 9.8 % (2-11); NEUTROPHILS 72.4 % (40-80); PLATELET COUNT 107 10x3/uL (130-400); RBC 3.04 10x6/uL (4.20-6.10); RDW 14.4 % (11.5-14.5); WBC 5.5 10x3/uL (4.8-10.8)
[2018-12-30 06:24] LABS: INR 1.24 (0.85-1.17); PROTIME 15.1 SECONDS (11.6-15.0)
[2018-12-30 06:40] LABS: ANION GAP 10.4 mmol/L (8-16); CALCIUM 8.1 mg/dL (8.5-10.1); CARBON DIOXIDE 28.3 mmol/L (21.0-32.0); CREATININE - SERUM 1.2 mg/dL (0.6-1.3); POTASSIUM - SERUM 3.7 mmol/L (3.5-5.1)
--- NOTE | 2018-12-30 07:53 | NUR ---
ALERT AND ORIENTED. TELEMERTY SHOWS SR 85. 02 AT NIGHT. UP WITH ASSIST. C/O PAIN TO RIGHT LEG. NORCO 7.5/325 GIVEN FOR RELIEF. PT IS HARD OF HEARING. RIGHT AC SL. SR UP WITH CALL LIGHT IN REACH. WILL MONITOR
[2018-12-30 08:55] VITALS: BP 146/70
[2018-12-30 12:10] VITALS: BP 122/57
--- NOTE | 2018-12-30 13:12 | NUR ---
UP IN BEDSIDE CHAIR. DENIES ANY NEEDS. WILL MONITOR
[2018-12-30 15:41] VITALS: BP 145/68
--- NOTE | 2018-12-30 19:10 | NUR ---
BEDSIDE REPORT RECEIVED FROM DAY SHIFT, PT CARE ASSUMED. INTRODUCED SELF AND WROTE NAME ON BOARD. PT SITTING UP IN BED WATCHING TV, AAOX4. C/O LEFT LEG PAIN OF 8, ON A SCALE OF 0 - 10. DENIES ANY OTHER NEEDS AT THIS TIME. BED IN LOWEST POSITION, SR X2, CALL LIGHT WITHIN REACH. WILL CONTINUE TO MONITOR.
[2018-12-30 20:00] VITALS: BP 148/69
[2018-12-31] VITALS (7 sets, daily range): BP systolic 121–156; BP diastolic 55–74; BMI 25.3
--- NOTE | 2018-12-31 03:47 | NUR ---
PT LYING IN BED WITH EYES CLOSED, RR EVEN AND NONLABORED, NO S/S DISTRESS, AROUSES EASILY TO VOICE. DENIES ANY NEEDS AT THIS TIME. BED IN LOWEST POSITION, SR X2, CALL LIGHT WITHIN REACH. WILL CONTINUE TO MONITOR.
[2018-12-31 05:38] LABS: BASOPHILS 0.3 % (0-2); EOSINOPHILS 3.8 % (0-7); HEMATOCRIT 30.9 % (42.0-54.0); HEMOGLOBIN 10.4 g/dL (13.5-17.5); IMMATURE GRANULOCYTES 0.2 % (0-5); LYMPHOCYTES 10.8 % (15-50); MCH 33.2 pg (26.0-34.0); MCHC 33.7 g/dL (31.0-37.0); MCV 98.7 fL (80.0-100.0); MEAN PLATELET VOLUME 10.7 fL (7.4-10.4); MONOCYTES 10.1 % (2-11); NEUTROPHILS 74.8 % (40-80); PLATELET COUNT 122 10x3/uL (130-400); RBC 3.13 10x6/uL (4.20-6.10); RDW 14.4 % (11.5-14.5)
[2018-12-31 06:06] LABS: INR 1.43 (0.85-1.17); PROTIME 16.9 SECONDS (11.6-15.0)
[2018-12-31 06:21] LABS: ANION GAP 13.8 mmol/L (8-16); CALCIUM 8.4 mg/dL (8.5-10.1); CARBON DIOXIDE 27.2 mmol/L (21.0-32.0); CREATININE - SERUM 1.3 mg/dL (0.6-1.3)
--- NOTE | 2018-12-31 07:03 | NUR ---
REPORT RECEIVED. WILL CONTINUE WITH POC. PT CURRERNTLY LYING SEMI FOWLERS. CALL LIGHT W/I REACH. PT IS RESTING AT THIS TIME WITH EYES CLOSED. RR EVEN AND UNLABORED ON 2L 02. R.AC PIV IS SALINE LOCKED. PT DENIES ANY NEEDS AT THIS TIME. NO S/S OF DISTRESS NOTED. WILL CTM.
--- NOTE | 2018-12-31 11:08 | NUR ---
I have reviewed this patient and I concur with the Shift Assessment completed by the Licensed Practical Nurse today this shift.
[2018-12-31 16:08] LABS: CHOL - HDL RATIO 1.6 ratio (2.3-4.9); LDL-HDL RATIO 0.4 ratio (1.5-3.5)
--- NOTE | 2018-12-31 16:27 | MORECARE ---
CASE MANAGEMENT DISCHARGE SUMMARY PATIENT: JOSE ROTHMAN UNIT: [id number] ADM DATE: 12/27/18 AGE: 83 : 37 SEX: M ROOM/BED: D.2124 AUTHOR: CAIT BARRAZA PHYSICIAN: REFERRING PHYSICIAN: MARVIN CHUNG MD DATE OF SERVICE: 12/31/18 Discharge Plan Patient Name: JOSE ROTHMAN Facility: [facility]:[place] : 1935 Planned Disposition: Inpatient Rehab Anticipated Discharge Date: Discharge Date: Expected LOS: Initial Reviewer: [email or web address] Initial Review Date: 12/31/2018 Generated: 12/31/18 5:26 pm DCPIA - Discharge Planning Initial Assessment Updated by [email or web address]: Aleksey Sun on 12/31/18 4:26 pm * Is the patient Alert and Oriented? Yes * How many steps to enter\exit or inside your home? RAMP * PCP DR. RILEY * Pharmacy [facility] OR [facility]. * Preadmission Environment Home with Family * ADLs Independent * Equipment Cane CPAP Oxygen Rolling Walker * Other Equipment ROLLATOR WALKER OXYGEN AT NIGHT - PROVIDER IS [facility] * List name and contact numbers for known caregivers / representatives who currently or will assist patient after discharge: JAYDON ROTHMAN, SPOUSE, * Verbal permission to speak to the caregivers and representatives has been obtained from the patient. N/A * Community resources currently utilized None * Please name any agencies selected above. NONE * Additional services required to return to the preadmission environment? Yes * Can the patient safely return to the preadmission environment? Yes * Has this patient been hospitalized within the prior 30 days at any hospital? No Patient Name: JOSE ROTHMAN Page [id number] at 1627 All edits/amendments must be made on the electronic document DICTATION DATE: 12/31/181625 PULP SCREEN OPERATOR: BARBARA 12/31/181625 RPT#: [id number] DC DATE: STATUS: ADM IN [facility] [address] [place] [address] END OF REPORT
--- NOTE | 2018-12-31 16:37 | MORECARE ---
CASE MANAGEMENT DISCHARGE SUMMARY PATIENT: JOSE ROTHMAN UNIT: [id number] ADM DATE: 12/27/18 AGE: 83 : 37 SEX: M ROOM/BED: D.8304 AUTHOR: MADI,DOC PHYSICIAN: REFERRING PHYSICIAN: MARVIN CHUNG MD DATE OF SERVICE: 12/31/18 Discharge Plan Patient Name: JOSE ROTHMAN Facility: [facility]:[place] : 1935 Planned Disposition: Inpatient Rehab Anticipated Discharge Date: Discharge Date: Expected LOS: Initial Reviewer: [email or web address] Initial Review Date: 12/31/2018 Generated: 12/31/18 5:37 pm Comments DCP- Discharge Planning Updated by [email or web address]: Aleksey Sun on 12/31/18 3:[address] Patient Name: JOSE ROTHMAN Admission Status: ER Accout number: [id number] Admission Date: 12-27-2018 : 1935 Admission Diagnosis: Attending: MARVIN CHUNG Current LOS: 4 Anticipated DC Date: Planned Disposition: Inpatient Rehab Primary Insurance: MEDICARE A & B PLANNED EXTERNAL PROVIDER: [facility] IN[facility] Discharge Planning Comments: CM RECEIVED INPATIENT REHAB PRESCREENING ORDER, MET WITH PT IN ROOM TO DISCUSS DISCHARGE PLANNING AND NEEDS. PT REPORTS LIVING AT HOME INDEPENDENTLY WITH HS SPOUSE. PT HAS RAMP ACCESS INTO THE HOME, HAS CANE, CPAP, OXYGEN AT NIGHT AND ROLLATOR WALKER FROM [facility]. PT HAS HAD [facility] IN THE PAST BUT HAS NO OUTSIDE SERVICES ASSISTING IN THE HOME. CM DISCUSSED AVAILABILITY OF HOME HEALTH, REHAB SERVICES AND MEDICAL EQUIPMENT. PT WOULD LIKE REHAB AT [place] AT DISCHARGE. PT REPORTS HIS FAMILY WILL PICK HIM UP FOR DISCHARGE HOME HIS IS NOT ABLE TO DRIVE WITHOUT HAND CONTROLS AND THE CAR WITH HAND CONTROLS IS NOT WORKING. WAITING MEDICAL STABILITY AND INPATIENT REHAB PRESCREEN RESULTS FROM [facility] IN[facility]. Oyster Shucker: Aleksey Sun DCPIA - Discharge Planning Initial Assessment Updated by [email or web address]: Aleksey Sun on 12/31/18 4:26 pm * Is the patient Alert and Oriented? Yes * How many steps to enter\exit or inside your home? RAMP * PCP DR. RILEY * Pharmacy [facility] OR [facility] ON [facility]. * Preadmission Environment Home with Family * ADLs Independent * Equipment Cane CPAP Oxygen Rolling Walker * Other Equipment ROLLATOR WALKER OXYGEN AT NIGHT - PROVIDER IS [facility] * List name and contact numbers for known caregivers / representatives who currently or will assist patient after discharge: JAYDON ROTHMAN, SPOUSE, * Verbal permission to speak to the caregivers and representatives has been obtained from the patient. N/A * Community resources currently utilized None * Please name any agencies selected above. NONE * Additional services required to return to the preadmission environment? Yes * Can the patient safely return to the preadmission environment? Yes * Has this patient been hospitalized within the prior 30 days at any hospital? No Last DP export: 12/31/18 3:27 Patient Name: JOSE ROTHMAN Page [phone] at 1637 All edits/amendments must be made on the electronic document DICTATION DATE: 12/31/181636 FOOD PRODUCT INSPECTOR: BARBARA 12/31/181636 RPT#: [id number] DC DATE: STATUS: ADM IN [facility] [address] [place] [address] END OF REPORT
--- NOTE | 2018-12-31 19:37 | NUR ---
RECEIVED REPORT, WILL ASSUME CARE OF PT, PT STILL COMPLAINS OF PAIN, JUST HAD ULTRAM, BED IS LOW, SRX2, CALL LIGHT IN REACH, WILL CONTINUE PLAN OF CARE
--- NOTE | 2019-01-01 01:06 | NUR ---
I have reviewed this patient and I concur with the Shift Assessment completed by the Licensed Practical Nurse today this shift.
[2019-01-01 04:45] VITALS: BP 117/60
[2019-01-01 05:52] LABS: ANION GAP 10.4 mmol/L (8-16); CALCIUM 8.6 mg/dL (8.5-10.1); CARBON DIOXIDE 31.6 mmol/L (21.0-32.0); CREATININE - SERUM 1.2 mg/dL (0.6-1.3)
[2019-01-01 05:53] LABS: BASOPHILS 0.3 % (0-2); EOSINOPHILS 1.3 % (0-7); HEMATOCRIT 28.5 % (42.0-54.0); HEMOGLOBIN 9.8 g/dL (13.5-17.5); IMMATURE GRANULOCYTES 0.3 % (0-5); LYMPHOCYTES 9.9 % (15-50); MCH 33.6 pg (26.0-34.0); MCHC 34.4 g/dL (31.0-37.0); MCV 97.6 fL (80.0-100.0); MEAN PLATELET VOLUME 11.1 fL (7.4-10.4); MONOCYTES 13.9 % (2-11); NEUTROPHILS 74.3 % (40-80); PLATELET COUNT 123 10x3/uL (130-400); RBC 2.92 10x6/uL (4.20-6.10); RDW 13.8 % (11.5-14.5); WBC 6.4 10x3/uL (4.8-10.8)
[2019-01-01 06:01] LABS: INR 1.61 (0.85-1.17); PROTIME 18.5 SECONDS (11.6-15.0)
[2019-01-01 08:00] VITALS: BP 107/59
--- NOTE | 2019-01-01 09:33 | NUR ---
PT STILL C/O OF PAIN LEVEL OF 10 AND NEW PAIN IN LEFT WRIST AND IT IS HRD TO RAISE STATED THIS TO NAHED DE LEON AND SHE STATES SHE WILL LOOK INTO HIS CHART.
--- NOTE | 2019-01-01 09:35 | NUR ---
STATED TO NAHED DE LEON THAT PT'S PAIN LEVEL IS STILL A 10 AFTER TAKING NORCO AND THAT IT IS NOT WORKING FOR PT'S PAIN. SHE VERBALIZED UNDERSTANDING AND STATES SHE WILL LOOK INTO IT.
--- NOTE | 2019-01-01 10:45 | NUR ---
LEFT WRIST RED, RADIAL BONE SWOLLEN. CALLED NAHED DE LEON AND SHE IS NOW IN ROOM COMING TO LOOK AT PT'S WRIST.
--- NOTE | 2019-01-01 11:28 | NUR ---
I have reviewed this patient and I concur with the Shift Assessment completed by the Licensed Practical Nurse today this shift.
[2019-01-01 12:00] VITALS: BP 118/79
--- NOTE | 2019-01-01 13:30 | NUR ---
STATED TO DR. ANDERSON THAT PT'S PAIN LEVEL IS STILL A 10 AFTER TAKING NORCO AND THAT IT IS NOT WORKING FOR PT'S PAIN. HE VERBALIZED UNDERSTANDING.
[2019-01-01 14:42] LABS: C-REACTIVE PROTEIN 10.9 mg/dL (0.0-0.9); URIC ACID 6.9 mg/dL (2.6-7.2)
[2019-01-01 15:26] LABS: ERYTHROCYTE SEDIMENTATION RATE 61 mm/hr (0-20)
[2019-01-01 16:00] VITALS: BP 115/62
--- NOTE | 2019-01-01 19:15 | NUR ---
RECEIVED REPORT, WILL ASSUME CARE OF PT, SLEEPING, NO DISTRESS NOTICED AT THIS TIME, BED IS LOW, SRX2, CALL LIGHT IN REACH, WILL CONTINUE PLAN OF CARE
[2019-01-01 20:35] VITALS: BP 110/58
[2019-01-01 23:52] VITALS: BP 98/52
[2019-01-02 03:14] LABS: BASOPHILS 0.4 % (0-2); EOSINOPHILS 2.9 % (0-7); HEMATOCRIT 28.2 % (42.0-54.0); HEMOGLOBIN 9.6 g/dL (13.5-17.5); IMMATURE GRANULOCYTES 0.2 % (0-5); LYMPHOCYTES 10.9 % (15-50); MCH 33.4 pg (26.0-34.0); MCV 98.3 fL (80.0-100.0); MONOCYTES 11.6 % (2-11); PLATELET COUNT 115 10x3/uL (130-400); RBC 2.87 10x6/uL (4.20-6.10); WBC 5.6 10x3/uL (4.8-10.8)
[2019-01-02 03:21] LABS: INR 3.07 (0.85-1.17); PROTIME 30.9 SECONDS (11.6-15.0)
[2019-01-02 03:25] LABS: ANION GAP 9.5 mmol/L (8-16); CALCIUM 8.6 mg/dL (8.5-10.1); CARBON DIOXIDE 30.6 mmol/L (21.0-32.0); CREATININE - SERUM 1.3 mg/dL (0.6-1.3); POTASSIUM - SERUM 4.1 mmol/L (3.5-5.1)
[2019-01-02 04:02] VITALS: BP 117/54
--- NOTE | 2019-01-02 04:17 | NUR ---
I have reviewed this patient and I concur with the Shift Assessment completed by the Licensed Practical Nurse today this shift.
--- NOTE | 2019-01-02 07:30 | NUR ---
RECIEVE REPORT. ALERT AND ORIENTED X4. RESTING IN BED. REPORT LT WRIST PAIN AND BILATERAL LOWER EXTREMITIES PAIN. REPOSITION IN BED. SINUS RYTHM WITH PACs ON TELEMETRY. DENIES ANY NEEDS AT THIS TIME. CONTINUE PLAN OF CARE AND SAFETY PRECAUTIONS.
[2019-01-02 08:13] VITALS: BP 113/57
[2019-01-02 11:32] VITALS: BP 127/55
[2019-01-02 17:10] VITALS: BP 104/51
--- NOTE | 2019-01-02 18:05 | NUR ---
ALERT AND ORIENTED X4. BED BATH AND LINEN CHANGE COMPLETE. REPOSITION IN BED. LT WRIST SAMUEL WRAPPED ORDERED. CONTINUE PAIN MANAGEMENT ORDERED. DENIES ANY NEEDS. CONTINUE PLAN OF CARE AND SAFETY PRECAUTIONS.
--- NOTE | 2019-01-02 19:15 | NUR ---
RECEIVED REPORT, WILL ASSUME CARE OF PT, TALKING ON PHONE, DENIES ANY NEEDS AT THIS TIME, BED IS LOW, SRX2,CALL LIGHT IN REACH, WILL CONTINUE PLAN OF CARE
[2019-01-02 20:32] VITALS: BP 109/47
[2019-01-02 23:51] VITALS: BP 107/50
--- NOTE | 2019-01-03 01:15 | NUR ---
I have reviewed this patient and I concur with the Shift Assessment completed by the Licensed Practical Nurse today this shift.
[2019-01-03 04:30] VITALS: BP 108/47
[2019-01-03 05:59] LABS: ANION GAP 11.9 mmol/L (8-16); CALCIUM 8.6 mg/dL (8.5-10.1); CARBON DIOXIDE 29.2 mmol/L (21.0-32.0); CREATININE - SERUM 1.6 mg/dL (0.6-1.3); POTASSIUM - SERUM 4.1 mmol/L (3.5-5.1); VANCOMYCIN - TROUGH 12.3 ug/mL (10.0-20.0)
[2019-01-03 06:06] LABS: PROTIME 30.4 SECONDS (11.6-15.0)
[2019-01-03 06:11] LABS: BASOPHILS 0.2 % (0-2); EOSINOPHILS 0.5 % (0-7); HEMATOCRIT 26.2 % (42.0-54.0); HEMOGLOBIN 8.8 g/dL (13.5-17.5); IMMATURE GRANULOCYTES 0.3 % (0-5); LYMPHOCYTES 9.3 % (15-50); MCHC 33.6 g/dL (31.0-37.0); MCV 98.1 fL (80.0-100.0); MONOCYTES 12.1 % (2-11); NEUTROPHILS 77.6 % (40-80); RBC 2.67 10x6/uL (4.20-6.10); RDW 14.2 % (11.5-14.5); WBC 6.2 10x3/uL (4.8-10.8)
[2019-01-03 06:13] LABS: PLATELET COUNT 146 10x3/uL (130-400)
--- NOTE | 2019-01-03 07:30 | NUR ---
RECIEVE REPORT. ALERT AND ORIENTED X4. AT BEDSIDE.
[2019-01-03 09:13] VITALS: BP 109/43
[2019-01-03 12:17] VITALS: BP 109/41
--- NOTE | 2019-01-03 15:31 | MORECARE ---
CASE MANAGEMENT DISCHARGE SUMMARY PATIENT: JOSE ROTHMAN UNIT: [id number] ADM DATE: 12/27/18 AGE: 83 : 37 SEX: M ROOM/BED: D.2124 AUTHOR: CAIT BARRAZA PHYSICIAN: REFERRING PHYSICIAN: MARVIN CHUNG MD DATE OF SERVICE: 01/03/19 Discharge Plan Patient Name: JOSE ROTHMAN Facility: [facility]:[place] : 1935 Planned Disposition: Inpatient Rehab Anticipated Discharge Date: Discharge Date: Expected LOS: Initial Reviewer: [email or web address] Initial Review Date: 12/31/2018 Generated: 01/03/19 4:30 pm Comments DCP- Discharge Planning Updated by [email or web address]: Aleksey Sun on 01/03/19 2:[address] Patient Name: JOSE ROTHMAN Encounter No: [id number] : 1935 Primary Insurance: MEDICARE A & B Anticipated DC Date: Planned Disposition: Inpatient Rehab External Planned Provider: [facility] Discharge Planning Comments: CM RECEIVED INPATIENT REHAB PRESCREENING ORDER, MET WITH PT IN ROOM TO DISCUSS DISCHARGE PLANNING AND NEEDS. CM DISCUSSED AVAILABILITY OF HOME HEALTH, REHAB SERVICES AND MEDICAL EQUIPMENT. CM DISCUSSED REHAB PROVIDERS, LOCATIONS AND SERVICES. PT STILL REPORTS BEING IN A LOT OF PAIN BUT HE WOULD STILL LIKE REHAB AT [place] AT DISCHARGE. IMPORTANT MESSAGE FROM MEDICARE PROVIDED AND EXPLAINED. WAITING MEDICAL STABILITY AND INPATIENT REHAB PRESCREEN RESULTS FROM [facility]. Outside Property Agent: Aleksey Sun DCP- Discharge Planning Updated by [email or web address]: Aleksey Sun on 12/31/18 3:[address] Patient Name: JOSE ROTHMAN Admission Status: ER Accout number: [id number] Admission Date: 12-27-2018 : 1935 Admission Diagnosis: Attending: MARVIN CHUNG Current LOS: 4 Anticipated DC Date: Planned Disposition: Inpatient Rehab Primary Insurance: MEDICARE A & B PLANNED EXTERNAL PROVIDER: [facility] Discharge Planning Comments: CM RECEIVED INPATIENT REHAB PRESCREENING ORDER, MET WITH PT IN ROOM TO DISCUSS DISCHARGE PLANNING AND NEEDS. PT REPORTS LIVING AT HOME INDEPENDENTLY WITH HS SPOUSE. PT HAS RAMP ACCESS INTO THE HOME, HAS CANE, CPAP, OXYGEN AT NIGHT AND ROLLATOR WALKER FROM [facility]. PT HAS HAD [facility] IN THE PAST BUT HAS NO OUTSIDE SERVICES ASSISTING IN THE HOME. CM DISCUSSED AVAILABILITY OF HOME HEALTH, REHAB SERVICES AND MEDICAL EQUIPMENT. PT WOULD LIKE REHAB AT [place] AT DISCHARGE. PT REPORTS HIS FAMILY WILL PICK HIM UP FOR DISCHARGE HOME HIS IS NOT ABLE TO DRIVE WITHOUT HAND CONTROLS AND THE CAR WITH HAND CONTROLS IS NOT WORKING. WAITING MEDICAL STABILITY AND INPATIENT REHAB PRESCREEN RESULTS FROM [facility]. Outside Property Agent: Aleksey Sun DCPIA - Discharge Planning Initial Assessment Updated by [email or web address]: Aleksey Sun on 12/31/18 4:26 pm * Is the patient Alert and Oriented? Yes * How many steps to enter\exit or inside your home? RAMP * PCP DR. RILEY * Pharmacy [facility] OR [facility] ON [address] * Preadmission Environment Home with Family * ADLs Independent * Equipment Cane CPAP Oxygen Rolling Walker * Other Equipment ROLLATOR WALKER OXYGEN AT NIGHT - PROVIDER IS [facility] * List name and contact numbers for known caregivers / representatives who currently or will assist patient after discharge: JAYDON ROTHMAN, SPOUSE, * Verbal permission to speak to the caregivers and representatives has been obtained from the patient. N/A * Community resources currently utilized None * Please name any agencies selected above. NONE * Additional services required to return to the preadmission environment? Yes * Can the patient safely return to the preadmission environment? Yes * Has this patient been hospitalized within the prior 30 days at any hospital? No Coverage Notice Reviewer: [id number] - Aleksey Sun Notice Issued Date-Time: 01/03/2019 15:10 Notice Type: IM Discharge Notice Notice Delivered To: Patient Relationship to Patient: Zmt Operator Name: Delivery Method: HAND - Hand Delivered Mariela Days: Prior Verbal Notification: Recipient Understood Notice: Yes Recipient Signature: Yes Med Rec Note Co-signed by Attending: Coverage Notice Comment: Last DP export: 12/31/18 3:37 Patient Name: JOSE ROTHMAN Page [phone] at 1531 All edits/amendments must be made on the electronic document DICTATION DATE: 01/03/191529 PIPE ORGAN TECHNICIAN: DM 01/03/191529 RPT#: [id number] DC DATE: STATUS: ADM IN [facility] [address] [place] [address] END OF REPORT
--- NOTE | 2019-01-03 16:18 | NUR ---
Rehab Note- Acute Inpatient Rehab prescreen order received. The patient is a good inpatient rehab candidate when medically stable and ready for [facility]. Will continue to follow at this time. Thank you for this referral! Irma Russo RN Clinical Liaison, [facility] Rehab
--- NOTE | 2019-01-03 16:30 | NUR ---
ALERT AND ORIENTED X4. RESTING IN BED. RT AC IV INFILTRATED. DC RT AC IV TIP INTACT. IV RESITE TO LT FA 22G SUCCESSFUL X7 ATTEMPTS.
[2019-01-03 17:24] VITALS: BP 155/55
--- NOTE | 2019-01-03 19:55 | NUR ---
PATIENT IS AAO. PATIENT C/0 PAIN IN BACK AND LEGS, RATES PAIN AT A 9 OUT OF 10. ADMINISTERED TYLENOL FOR PAIN. BED IN THE LOWEST POSITION AND CALL LIGHT WITH IN REACH.
[2019-01-03 20:00] VITALS: BP 142/62; BP 158/88
[2019-01-04] VITALS: BP 105/48
[2019-01-04 04:00] VITALS: BP 136/67
--- NOTE | 2019-01-04 04:27 | NUR ---
PT INCONTINENT OF BOWEL, MANAGER NET AT BED SIDE TO CLEAN PT. REPOSITIONED IN BED FOR COMFORT.
[2019-01-04 05:48] LABS: BASOPHILS 0.2 % (0-2); EOSINOPHILS 0.1 % (0-7); HEMATOCRIT 27.8 % (42.0-54.0); HEMOGLOBIN 9.5 g/dL (13.5-17.5); IMMATURE GRANULOCYTES 0.1 % (0-5); LYMPHOCYTES 4.9 % (15-50); MCH 33.1 pg (26.0-34.0); MCHC 34.2 g/dL (31.0-37.0); MCV 96.9 fL (80.0-100.0); MONOCYTES 9.2 % (2-11); NEUTROPHILS 85.5 % (40-80); RBC 2.87 10x6/uL (4.20-6.10); RDW 14.1 % (11.5-14.5)
[2019-01-04 05:52] LABS: PLATELET COUNT 181 10x3/uL (130-400); WBC 9.3 10x3/uL (4.8-10.8)
[2019-01-04 06:09] LABS: ANION GAP 13.8 mmol/L (8-16); CALCIUM 8.4 mg/dL (8.5-10.1); CARBON DIOXIDE 28.8 mmol/L (21.0-32.0); CREATININE - SERUM 1.7 mg/dL (0.6-1.3); POTASSIUM - SERUM 3.6 mmol/L (3.5-5.1)
[2019-01-04 06:55] LABS: APTT 51.7 SECONDS (22.8-39.4)
[2019-01-04 07:01] LABS: INR 1.67 (0.85-1.17)
[2019-01-04 08:37] LABS: CHOL - HDL RATIO 2.7 ratio (2.3-4.9); LDL-HDL RATIO 1.3 ratio (1.5-3.5)
[2019-01-04 09:29] VITALS: BP 137/62
[2019-01-04 12:13] VITALS: BP 116/82
--- NOTE | 2019-01-04 15:46 | NUR ---
PT RECIEVED FROM [facility]. SEDATED BUT AWAKENS EAISLY. TELEMERTY SHOWS SR. LEFT GROIN SOFT AIWHT DRSG DRY AND INTACT. PPP. RIGHT LEG WARM TO TOUCH. SR UP WITH CALL LIGHT IN REACH
--- NOTE | 2019-01-04 15:47 | NUR ---
I have reviewed this patient and I concur with the Shift Assessment completed by the Licensed Practical Nurse today this shift.
[2019-01-04 16:46] VITALS: BP 131/65
--- NOTE | 2019-01-04 16:50 | MORECARE ---
CASE MANAGEMENT DISCHARGE SUMMARY PATIENT: JOSE ROTHMAN UNIT: [id number] ADM DATE: 12/27/18 AGE: 83 : 37 SEX: M ROOM/BED: D.1314 AUTHOR: CAIT BARRAZA PHYSICIAN: REFERRING PHYSICIAN: MARVIN CHUNG MD DATE OF SERVICE: 01/04/19 Discharge Plan Patient Name: JOSE ROTHMAN Facility: [facility]:[place] : 1935 Planned Disposition: Inpatient Rehab Anticipated Discharge Date: Discharge Date: Expected LOS: Initial Reviewer: [id number] Initial Review Date: 12/31/2018 Generated: 01/04/19 5:49 pm Comments DCP- Discharge Planning Updated by [id number]: Lala Cormier on 01/04/19 3:[address] Patient Name: JOSE ROTHMAN Admission Status: ER Accout number: [id number] Admission Date: 12-27-2018 : 1935 Admission Diagnosis: Attending: MARVIN CHUNG Current LOS: 8 Anticipated DC Date: Planned Disposition: Inpatient Rehab Primary Insurance: MEDICARE A & B Discharge Planning Comments: I SPOKE WITH PATIENT PER HER REQUEST. SHE WANTS TO MAKE SURE WE ARE AWARE THAT HE WANTS TO GO TO [facility] WHEN STABLE FOR DISCHARGE. I SEE [facility] IS FOLLOWING HIM. CM WILL ALSO FOLLOW AND ASSIST NEEDED. Wigs Salesperson: Lala Cormier DCP- Discharge Planning Updated by [email or web address]: Aleksey Sun on 01/03/19 2:[address] Patient Name: JOSE ROTHMAN Encounter No: [id number] : 1935 Primary Insurance: MEDICARE A & B Anticipated DC Date: Planned Disposition: Inpatient Rehab External Planned Provider: [facility] INPATIENT REHAB Discharge Planning Comments: CM RECEIVED INPATIENT REHAB PRESCREENING ORDER, MET WITH PT IN ROOM TO DISCUSS DISCHARGE PLANNING AND NEEDS. CM DISCUSSED AVAILABILITY OF HOME HEALTH, REHAB SERVICES AND MEDICAL EQUIPMENT. CM DISCUSSED REHAB PROVIDERS, LOCATIONS AND SERVICES. PT STILL REPORTS BEING IN A LOT OF PAIN BUT HE WOULD STILL LIKE REHAB AT [place] AT DISCHARGE. IMPORTANT MESSAGE FROM MEDICARE PROVIDED AND EXPLAINED. WAITING MEDICAL STABILITY AND INPATIENT REHAB PRESCREEN RESULTS FROM [facility] INPATIENT REHAB. Wigs Salesperson: Aleksey Sun DCP- Discharge Planning Updated by [email or web address]: Aleksey Sun on 12/31/18 3:[address] Patient Name: JOSE ROTHMAN Admission Status: ER Accout number: [id number] Admission Date: 12-27-2018 : 1935 Admission Diagnosis: Attending: MARVIN CHUNG Current LOS: 4 Anticipated DC Date: Planned Disposition: Inpatient Rehab Primary Insurance: MEDICARE A & B PLANNED EXTERNAL PROVIDER: [facility] INPATIENT REHAB Discharge Planning Comments: CM RECEIVED INPATIENT REHAB PRESCREENING ORDER, MET WITH PT IN ROOM TO DISCUSS DISCHARGE PLANNING AND NEEDS. PT REPORTS LIVING AT HOME INDEPENDENTLY WITH HS SPOUSE. PT HAS RAMP ACCESS INTO THE HOME, HAS CANE, CPAP, OXYGEN AT NIGHT AND ROLLATOR WALKER FROM [facility]. PT HAS HAD [facility] IN THE PAST BUT HAS NO OUTSIDE SERVICES ASSISTING IN THE HOME. CM DISCUSSED AVAILABILITY OF HOME HEALTH, REHAB SERVICES AND MEDICAL EQUIPMENT. PT WOULD LIKE REHAB AT [place] AT DISCHARGE. PT REPORTS HIS FAMILY WILL PICK HIM UP FOR DISCHARGE HOME HIS IS NOT ABLE TO DRIVE WITHOUT HAND CONTROLS AND THE CAR WITH HAND CONTROLS IS NOT WORKING. WAITING MEDICAL STABILITY AND INPATIENT REHAB PRESCREEN RESULTS FROM [facility] INPATIENT REHAB. Wigs Salesperson: Aleksey Sun DCPIA - Discharge Planning Initial Assessment Updated by [id number]: Aleksey Sun on 12/31/18 4:26 pm * Is the patient Alert and Oriented? Yes * How many steps to enter\exit or inside your home? RAMP * PCP DR. RILEY * Pharmacy [facility] ON [facility]. * Preadmission Environment Home with Family * ADLs Independent * Equipment Cane CPAP Oxygen Rolling Walker * Other Equipment ROLLATOR WALKER OXYGEN AT NIGHT - PROVIDER IS [facility] * List name and contact numbers for known caregivers / representatives who currently or will assist patient after discharge: JAYDON ROTHMAN, SPOUSE, * Verbal permission to speak to the caregivers and representatives has been obtained from the patient. N/A * Community resources currently utilized None * Please name any agencies selected above. NONE * Additional services required to return to the preadmission environment? Yes * Can the patient safely return to the preadmission environment? Yes * Has this patient been hospitalized within the prior 30 days at any hospital? No Coverage Notice Reviewer: [id number] Adán Sun Notice Issued Date-Time: 01/03/2019 15:10 Notice Type: IM Discharge Notice Notice Delivered To: Patient Relationship to Patient: Supervisory Historian Name: Delivery Method: HAND - Hand Delivered Mariela Days: Prior Verbal Notification: Recipient Understood Notice: Yes Recipient Signature: Yes Med Rec Note Co-signed by Attending: Coverage Notice Comment: Last DP export: 01/03/19 2:31 Patient Name: JOSE ROTHMAN Page [id number] at 1650 All edits/amendments must be made on the electronic document DICTATION DATE: 01/04/191648 CONSTRUCTION SITE MANAGER: BARBARA 01/04/191648 RPT#: [id number] DC DATE: STATUS: ADM IN [facility] [address] [place] [address] END OF REPORT
--- NOTE | 2019-01-04 17:37 | NUR ---
LYING QUIETLY WITH EYES CLOSED. DENIES ANY NEEDS AT PRESENT TIME. TELEMERTY SHOWS SR.
[2019-01-04 20:35] VITALS: BP 123/62
[2019-01-05] VITALS: BP 117/59
--- NOTE | 2019-01-05 03:25 | NUR ---
AIR BRAKE RIGGER AT BED SIDE, BATH AND LINEN CHANGE COMPLETE.
[2019-01-05 04:00] VITALS: BP 124/643
[2019-01-05 06:07] LABS: BASOPHILS 0.2 % (0-2); EOSINOPHILS 0.4 % (0-7); HEMATOCRIT 23.3 % (42.0-54.0); HEMOGLOBIN 8.1 g/dL (13.5-17.5); IMMATURE GRANULOCYTES 0.2 % (0-5); MCH 33.5 pg (26.0-34.0); MCHC 34.8 g/dL (31.0-37.0); MCV 96.3 fL (80.0-100.0); MEAN PLATELET VOLUME 10.6 fL (7.4-10.4); MONOCYTES 7.8 % (2-11); NEUTROPHILS 86.4 % (40-80); PLATELET COUNT 211 10x3/uL (130-400); RBC 2.42 10x6/uL (4.20-6.10); RDW 14.4 % (11.5-14.5); WBC 9.7 10x3/uL (4.8-10.8)
[2019-01-05 06:32] LABS: ANION GAP 11.5 mmol/L (8-16); CALCIUM 8.1 mg/dL (8.5-10.1); CARBON DIOXIDE 28.3 mmol/L (21.0-32.0); CREATININE - SERUM 2.6 mg/dL (0.6-1.3); POTASSIUM - SERUM 3.8 mmol/L (3.5-5.1)
--- NOTE | 2019-01-05 08:07 | NUR ---
ASSESSMENT DONE. DENIES NEEDS
[2019-01-05 09:06] VITALS: BP 99/50
--- NOTE | 2019-01-05 11:54 | NUR ---
I have reviewed this patient and I concur with the Shift Assessment completed by the Licensed Practical Nurse today this shift.
[2019-01-05 12:04] VITALS: BP 109/55
--- NOTE | 2019-01-05 12:47 | NUR ---
Rehab Note- Continue to follow at this time. The patient now has a Nephrology consult pending. Will plan to accept the patient to [facility] Acute Inpatient Rehab when medically stable and ready for discharge from the acute hospital. Thank you for this referral! Irma Russo RN Clinical Liaison, [facility] Rehab
[2019-01-05 12:52] LABS: INR 1.25 (0.85-1.17); PROTIME 15.2 SECONDS (11.6-15.0)
[2019-01-05 14:33] VITALS: Ht 172.7 cm; Wt 78.1 kg
[2019-01-05 15:06] LABS: COMPLEMENT C4 32.1 mg/dL (17.4-52.2)
--- NOTE | 2019-01-05 15:08 | OP ---
PATIENT NAME: JOSE ROTHMAN MEDICAL RECORD: [id number] :[birth year] LOCATION:D.M2 D.2124 ADMISSION DATE:12/27/18 SURGEON: RICKEY CRUZ MD DATE OF OPERATION: 01/04/2019 PROCEDURE: PTCA stent to the right SFA. Please see AFRO done previously for results of anatomy. After a 6-Czech sheath was placed in the left femoral artery, we were able to cross the horn using the RENARD catheter. Next, we were able to track a Glidewire and caused the area of total occlusion in the right SFA down this portion of this vessel. Predeployment balloon used was a 60 POWERFLEX balloon and it was used predeployment, this showed nice improvement of 100% stenosis but still with multiple areas of small dissection but improvement in GOKUL flow from 0 to 3. We used at #120 60-SMART self-expanding stent was placed across the area of occlusion and dissection. We went back in with a 60-POWERFLEX balloon up to 14 atmospheres at this time to ensure adequate deployment of the stent. Final angiography shows excellent resolution of 100% stenosis. Nice step-up proximally, nice step-down distally, and improvement in distal runoff. Sheath was closed with ExoSeal device, Plavix previously loaded on the floor. Heparin was given during the case. OVERALL IMPRESSION: Successful SUPERVISOR ROLLER SHOP stenting of the right SFA going from 100% stenosis to no significant residual. TRANSINT:[id number] Voice Confirmation ID: [id number] DOCUMENT ID: [id number] RICKEY CRUZ MD at 1508 CC: [id number] DICTATION DATE: 01/04/19 151 TYPE DISK QUALITY CONTROL SUPERVISOR: 01/04/196 ADM IN [facility] [address] [place] [address]
[2019-01-05 16:29] VITALS: BP 85/46
--- NOTE | 2019-01-05 19:32 | NUR ---
PATIENT IS RESTING IN BED. PATIENT IS ON ROOM AIR. IV LOCATED IN [facility] WITH NS RUNNING. BED IS IN THE LOWEST POSITON AND CALL LIGHT IN REACH.
[2019-01-05 20:00] VITALS: BP 106/65
--- NOTE | 2019-01-05 20:31 | NUR ---
PALCED PORTILLO USING STERILE PROCEDURE. PATIENT TOLERATED PROCEDURE WELL. IMMEDIATE URING FLOW. URINE IS DARK YELLOW. BED IN THE LOWEST POSTION AND CALL LIGHT IN REACH.
[2019-01-06] VITALS (21 sets, daily range): BP systolic 86–132; BP diastolic 40–81
--- NOTE | 2019-01-06 00:39 | NUR ---
PATIENT BLOOD 86/40. CALLED HALE[facility] VICENTE. ORDERS RECIEVED VIA TELEPHONE TO ORDER CBC STAT AND GIVE PATIENT A 250ML IV BOLUS OF NS. ORDERS CARRIED OUT. BED IN THE LOWEST POSITION AND CALL LIGHT IN REACH.
[2019-01-06 01:08] LABS: BASOPHILS 0.1 % (0-2); EOSINOPHILS 4.7 % (0-7); IMMATURE GRANULOCYTES 0.4 % (0-5); LYMPHOCYTES 7.1 % (15-50); MCHC 34.3 g/dL (31.0-37.0); MCV 96.1 fL (80.0-100.0); MEAN PLATELET VOLUME 10.8 fL (7.4-10.4); MONOCYTES 6.9 % (2-11); NEUTROPHILS 80.8 % (40-80); PLATELET COUNT 210 10x3/uL (130-400); RBC 2.06 10x6/uL (4.20-6.10); RDW 14.3 % (11.5-14.5); WBC 8.5 10x3/uL (4.8-10.8)
[2019-01-06 01:15] LABS: HEMATOCRIT 19.8 % (42.0-54.0); HEMOGLOBIN 6.8 g/dL (13.5-17.5)
--- NOTE | 2019-01-06 01:34 | NUR ---
PATIENT CBC COMPLETE. HGB 6.8 AND HCT 19.8. NOTIFIED [facility] VICENT[facility]. [facility]Y VICENTE ORDERED OCCULT BLOOD STOOL AND TYPE AND CROSS 2 UNITS OF PACKED RBC.
--- NOTE | 2019-01-06 02:40 | NUR ---
INITATED RBC TRANSFUSION. BAG HUNG AND SPIKED BY KELTON GRANGER. BP-102/53, PULSE-73, TEMP-98.1, O2 95%.
--- NOTE | 2019-01-06 02:54 | NUR ---
OBSERVATION OF THE FIRST 15 MIN OF PACKED RBC TRANSFUSION. BP-86/50, TEMP-98.6 F, PULSE 69, RESP-16, O2 SAT-94. PATIENT DENIES ANY CONCERNS AT THIS TIME. NO VISIBLE SIGNS OF DISTRESS. BED IN THE LOWEST POSITION AND CALL LIGHT IN REACH.
--- NOTE | 2019-01-06 04:20 | NUR ---
PATIENT BP 77/34. CALLED [facility] VICENTE ABOUT PATIENT BLOOD PRESSURE CONTINUING TO LOWER. HALEY CID ORDERED A CT OF THE ABD AND PELVIS WITHOUT CONTRAST AND THE PATIENT BE TRANSFERED TO ICU. ORDERS CARRIED OUT.
--- NOTE | 2019-01-06 04:30 | NUR ---
RADIOLOGY AT BED SIDE TO TAKE PT TO CT.
--- NOTE | 2019-01-06 05:00 | NUR ---
PT TRANSFERRED TO ICU. ASSUMED CARE OF PATIENT. VSS. WILL CONTINUE TO MONITOR.
[2019-01-06 06:14] LABS: BASOPHILS 0.2 % (0-2); EOSINOPHILS 5.6 % (0-7); HEMATOCRIT 23.3 % (42.0-54.0); IMMATURE GRANULOCYTES 0.1 % (0-5); LYMPHOCYTES 9.5 % (15-50); MCH 32.8 pg (26.0-34.0); MCHC 34.3 g/dL (31.0-37.0); MCV 95.5 fL (80.0-100.0); MEAN PLATELET VOLUME 10.4 fL (7.4-10.4); NEUTROPHILS 78.6 % (40-80); PLATELET COUNT 196 10x3/uL (130-400); RBC 2.44 10x6/uL (4.20-6.10); RDW 14.5 % (11.5-14.5); WBC 8.4 10x3/uL (4.8-10.8)
[2019-01-06 06:45] LABS: INR 1.05 (0.85-1.17); PROTIME 13.2 SECONDS (11.6-15.0)
[2019-01-06 07:06] LABS: ANION GAP 14.1 mmol/L (8-16); CALCIUM 7.3 mg/dL (8.5-10.1); CARBON DIOXIDE 25.9 mmol/L (21.0-32.0); CREATININE - SERUM 2.6 mg/dL (0.6-1.3)
--- NOTE | 2019-01-06 10:25 | NUR ---
MORNING MEDICATIONS HAVE BEEN PROVIDED. PT HAD BM EARLIER AND SAMPLE SENT OFF. RENAL FISH FARM LABORER WAS JUST AT BEDSIDE SPEAKING WITH PATIENT AND . CALL LIGHT IN REACH
[2019-01-06 10:42] LABS: % SATURATION 28 % (15-55); IRON 40 ug/dl (35-150); TOTAL IRON BIND CAPACITY 141 ug/dl (260-445); UNSAT IRON BIND CAPACITY 101 ug/dl (150-375)
[2019-01-06 11:10] LABS: ANA REFLEX - DBL STRANDED DNA <1 IU/mL (0-9); ANA REFLEX - DIRECT Negative (Negative)
[2019-01-06 11:57] LABS: APPEARANCE CLOUDY (CLEAR); BILIRUBIN NEGATIVE (NEGATIVE); COLOR YELLOW (YELLOW); GLUCOSE NEGATIVE (NEGATIVE); KETONE NEGATIVE (NEGATIVE); NITRITE NEGATIVE (NEGATIVE); PROTEIN 1+ mg/dL (NEGATIVE); SPECIFIC GRAVITY 1.015 (1.005-1.020); UROBILINOGEN NORMAL (NORMAL)
[2019-01-06 12:19] LABS: BACTERIA MODERATE /hpf (NEGATIVE); EPITHELIAL CELLS 0-5 /hpf (0-5); MUCUS <1+ /lpf (NONE SEEN)
[2019-01-06 12:20] LABS: GRANULAR CAST 0-5 /lpf (NONE SEEN)
[2019-01-06 13:10] LABS: SPE - A/G RATIO 0.8 (0.7-1.7); SPE - ALBUMIN 2.1 g/dL (2.9-4.4); SPE - ALPHA-1 GLOBULIN 0.5 g/dL (0.0-0.4); SPE - BETA GLOBULIN 0.8 g/dL (0.7-1.3); SPE - GAMMA GLOBULIN 0.4 g/dL (0.4-1.8); SPE - M-SPIKE Not Observed g/dL (Not Observed); SPE - TOTAL PROTEIN 4.8 g/dL (6.0-8.5)
--- NOTE | 2019-01-06 13:42 | NUR ---
PT ATE OVER HALF LUNCH TRAY. THOUGHT NEEDED TO HAVE ANOTHER BM, ONLY GAS THIS TIME. FAMILY NOW BACK AT BEDSIDE. PT DENIES ANY OTHER NEEDS AT THIS TIME.
[2019-01-06 15:10] LABS: HEMATOCRIT 26.9 % (42.0-54.0); HEMOGLOBIN 9.1 g/dL (13.5-17.5)
--- NOTE | 2019-01-06 19:00 | NUR ---
PT REPORT RECEIVED FROM DAY SHIFT NURSE. PT HAD BM IN BEDPAN. VSS. NO SIGNS OF DISTRESS NOTED. SHIFT ASSESSMENT COMPLETED.
--- NOTE | 2019-01-06 21:00 | NUR ---
PT RESTING IN BED. COMPLAINS OF PAIN AND PAIN MEDICATION GIVEN. VSS. NO OTHER COMPLAINTS NOTED AT THIS TIME.
--- NOTE | 2019-01-06 23:00 | NUR ---
PT RESTING IN BED. NO COMPLAINTS NOTED AT THIS TIME. REASSESSMENT COMPLETED. VSS. WILL CONTINUE TO MONITOR
[2019-01-07] VITALS (16 sets, daily range): BP systolic 92–140; BP diastolic 45–83
--- NOTE | 2019-01-07 01:00 | NUR ---
PT RESTING IN BED. EASILY AROUSABLE. VSS. NO SIGNS OF DISTRESS NOTED. WILL CONTINUE TO MONITOR
--- NOTE | 2019-01-07 03:00 | NUR ---
PT RESTING IN BED. EASILY AROUSED. NO SIGNS OF DISTRESS NOTED. VSS. REASSESSMENT COMPLETED. WILL CONTINUE TO MONITOR
--- NOTE | 2019-01-07 05:00 | NUR ---
PT RESTING IN BED. NO COMPLAINTS NOTED AT THIS TIME. VSS. WILL CONTINUE TO MONITOR
[2019-01-07 05:46] LABS: BASOPHILS 0.4 % (0-2); EOSINOPHILS 7.7 % (0-7); HEMATOCRIT 28.5 % (42.0-54.0); HEMOGLOBIN 9.8 g/dL (13.5-17.5); IMMATURE GRANULOCYTES 0.8 % (0-5); LYMPHOCYTES 9.9 % (15-50); MCH 32.2 pg (26.0-34.0); MCHC 34.4 g/dL (31.0-37.0); MCV 93.8 fL (80.0-100.0); MEAN PLATELET VOLUME 10.3 fL (7.4-10.4); MONOCYTES 7.2 % (2-11); RDW 15.7 % (11.5-14.5); WBC 7.4 10x3/uL (4.8-10.8)
[2019-01-07 06:01] LABS: PLATELET COUNT 246 10x3/uL (130-400); RBC 3.04 10x6/uL (4.20-6.10)
[2019-01-07 06:06] LABS: ANION GAP 8.1 mmol/L (8-16); CALCIUM 7.4 mg/dL (8.5-10.1); CARBON DIOXIDE 28.5 mmol/L (21.0-32.0); POTASSIUM - SERUM 3.6 mmol/L (3.5-5.1); VANCOMYCIN - RANDOM 13.2 ug/mL (10.0-20.0)
[2019-01-07 06:10] LABS: CREATININE - SERUM 1.8 mg/dL (0.6-1.3)
[2019-01-07 06:18] LABS: INR 1.12 (0.85-1.17); PROTIME 13.9 SECONDS (11.6-15.0)
--- NOTE | 2019-01-07 06:34 | NUR ---
CHG BATH GIVEN AND PT HAD A BM. PT TOLERATED WELL. NO VISIBLE SIGNS OF DISTRESS NOTED. VSS. WILL CONTINUE TO MONITOR
--- NOTE | 2019-01-07 07:08 | NUR ---
G.I. TEAM AT BEDSIDE SETTING UP FOR EGD.
--- NOTE | 2019-01-07 07:55 | NUR ---
Nutrition follow-up: Pt s/p EGD today; diet advanced PO Intake ~75% of last 2 meals Labs reviewed Wt: 172# RDN following.
[2019-01-07 14:09] LABS: UPE RAND - ALBUMIN 42.1 % (()); UPE RAND - ALPHA 1 GLOBULIN 3.3 % (()); UPE RAND - ALPHA 2 GLOBULIN 24.2 % (()); UPE RAND - BETA GLOBULIN 20.3 % (()); UPE RAND - GAMMA GLOBULIN 10.1 % (())
[2019-01-07] MEDS ORDERED: PLAVIX75 MG PO (16:16)
[2019-01-07] MEDS ORDERED: NEURONTIN 300300 MG PO (16:18)
[2019-01-07] MEDS ORDERED: MAG-OX 400 MG400 MG PO (16:19)
[2019-01-07] MEDS ORDERED: PEPCID AC20 MG PO (16:20)
[2019-01-07] MEDS ORDERED: HYDROCODON-ACE1 EA10 PO (16:21)
--- NOTE | 2019-01-07 16:34 | NUR ---
REPORT CALLED TO [facility] REHAB UN[facility]. DINNER TRAY CAME. GAVE TO PATIENT TO EAT BEFORE TRANSFERRING HIM, HE WAS ON THE PHONE WITH HIS WHEN I WALKED IN, SHE WAS NOTIFIED OF HIS MOVE TO REHAB AND WHAT ROOM HE WAS GOING TO. WILL BE GOING TO [address]
--- NOTE | 2019-01-07 18:24 | MORECARE ---
CASE MANAGEMENT DISCHARGE SUMMARY PATIENT: JOSE ROTHMAN UNIT: [id number] ADM DATE: 12/27/18 AGE: 83 : 37 SEX: M ROOM/BED: D.2304 AUTHOR: CAIT BARRAZA PHYSICIAN: REFERRING PHYSICIAN: MARVIN CHUNG MD DATE OF SERVICE: 01/07/19 Discharge Plan Patient Name: JOSE ROTHMAN Facility: [facility]:[place] : 1935 Planned Disposition: Inpatient Rehab Anticipated Discharge Date: Discharge Date: 01/07/2019 Expected LOS: Initial Reviewer: [id number] Initial Review Date: 12/31/2018 Generated: 01/07/19 7:24 pm Comments DCP- Discharge Planning Updated by [id number]: Sheron Porter on 01/07/19 5:[address] Patient Name: JOSE ROTHMAN Encounter No: [id number] : 1935 Primary Insurance: MEDICARE A & B Anticipated DC Date: Planned Disposition: Inpatient Rehab External Planned Provider: : rhonda LEE signed 01/07/19 discharging to [facility] inpatient Rehab DCP follow-up note: Patient and family in agreement with discharge plan. No changes to plan. Case management will follow and assist as needed. Sheron Furr DCP- Discharge Planning Updated by [id number]: Lala Cormier on 01/04/19 3:[address] Patient Name: JOSE ROTHMAN Admission Status: ER Accout number: [id number] Admission Date: 12-27-2018 : 1935 Admission Diagnosis: Attending: MARVIN CHUNG Current LOS: 8 Anticipated DC Date: Planned Disposition: Inpatient Rehab Primary Insurance: MEDICARE A & B Discharge Planning Comments: I SPOKE WITH PATIENT PER HER REQUEST. SHE WANTS TO MAKE SURE WE ARE AWARE THAT HE WANTS TO GO TO [facility] WHEN STABLE FOR DISCHARGE. I SEE [facility] IS FOLLOWING HIM. CM WILL ALSO FOLLOW AND ASSIST NEEDED. Spin Table Operator: Lala Cormier DCP- Discharge Planning Updated by [id number]: Aleksey Sun on 01/03/19 2:[address] Patient Name: JOSE ROTHMAN Encounter No: [id number] : 1935 Primary Insurance: MEDICARE A & B Anticipated DC Date: Planned Disposition: Inpatient Rehab External Planned Provider: [facility] INPATIENT REHAB Discharge Planning Comments: CM RECEIVED INPATIENT REHAB PRESCREENING ORDER, MET WITH PT IN ROOM TO DISCUSS DISCHARGE PLANNING AND NEEDS. CM DISCUSSED AVAILABILITY OF HOME HEALTH, REHAB SERVICES AND MEDICAL EQUIPMENT. CM DISCUSSED REHAB PROVIDERS, LOCATIONS AND SERVICES. PT STILL REPORTS BEING IN A LOT OF PAIN BUT HE WOULD STILL LIKE REHAB AT [place] [facility] AT DISCHARGE. IMPORTANT MESSAGE FROM MEDICARE PROVIDED AND EXPLAINED. WAITING MEDICAL STABILITY AND INPATIENT REHAB PRESCREEN RESULTS FROM [facility] INPATIENT REHAB. Spin Table Operator: Aleksey Sun DCP- Discharge Planning Updated by [id number]: Aleksey Sun on 12/31/18 3:[address] Patient Name: JOSE ROTHMAN Admission Status: ER Accout number: [id number] Admission Date: 12-27-2018 : 1935 Admission Diagnosis: Attending: MARVIN CHUNG Current LOS: 4 Anticipated DC Date: Planned Disposition: Inpatient Rehab Primary Insurance: MEDICARE A & B PLANNED EXTERNAL PROVIDER: [facility] INPATIENT REHAB Discharge Planning Comments: CM RECEIVED INPATIENT REHAB PRESCREENING ORDER, MET WITH PT IN ROOM TO DISCUSS DISCHARGE PLANNING AND NEEDS. PT REPORTS LIVING AT HOME INDEPENDENTLY WITH HS SPOUSE. PT HAS RAMP ACCESS INTO THE HOME, HAS CANE, CPAP, OXYGEN AT NIGHT AND ROLLATOR WALKER FROM [facility]. PT HAS HAD [facility] IN THE PAST BUT HAS NO OUTSIDE SERVICES ASSISTING IN THE HOME. CM DISCUSSED AVAILABILITY OF HOME HEALTH, REHAB SERVICES AND MEDICAL EQUIPMENT. PT WOULD LIKE REHAB AT [place] [facility] AT DISCHARGE. PT REPORTS HIS FAMILY WILL PICK HIM UP FOR DISCHARGE HOME HIS IS NOT ABLE TO DRIVE WITHOUT HAND CONTROLS AND THE CAR WITH HAND CONTROLS IS NOT WORKING. WAITING MEDICAL STABILITY AND INPATIENT REHAB PRESCREEN RESULTS FROM [facility] INPATIENT REHAB. Spin Table Operator: Aleksey Sun DCPIA - Discharge Planning Initial Assessment Updated by [id number]: Aleksey Sun on 12/31/18 4:26 pm * Is the patient Alert and Oriented? Yes * How many steps to enter\exit or inside your home? RAMP * PCP DR. RILEY * Pharmacy [facility] OR [facility] ON [facility]. * Preadmission Environment Home with Family * ADLs Independent * Equipment Cane CPAP Oxygen Rolling Walker * Other Equipment ROLLATOR WALKER OXYGEN AT NIGHT - PROVIDER IS [facility] * List name and contact numbers for known caregivers / representatives who currently or will assist patient after discharge: JAYDON ROTHMAN, SPOUSE, * Verbal permission to speak to the caregivers and representatives has been obtained from the patient. N/A * Community resources currently utilized None * Please name any agencies selected above. NONE * Additional services required to return to the preadmission environment? Yes * Can the patient safely return to the preadmission environment? Yes * Has this patient been hospitalized within the prior 30 days at any hospital? No Coverage Notice Reviewer: [id number] Adán Sun Notice Issued Date-Time: 01/03/2019 15:10 Notice Type: IM Discharge Notice Notice Delivered To: Patient Relationship to Patient: Filter Press Pumper Name: Delivery Method: HAND - Hand Delivered Mariela Days: Prior Verbal Notification: Recipient Understood Notice: Yes Recipient Signature: Yes Med Rec Note Co-signed by Attending: Coverage Notice Comment: Reviewer: [id number] Adán Porter Notice Issued Date-Time: 01/07/2019 16:00 Notice Type: IM Discharge Notice Notice Delivered To: Patient Relationship to Patient: Self Filter Press Pumper Name: Delivery Method: HAND - Hand Delivered Mariela Days: Prior Verbal Notification: Recipient Understood Notice: Yes Recipient Signature: Yes Med Rec Note Co-signed by Attending: Coverage Notice Comment: Last DP export: 01/04/19 3:50 Patient Name: JOSE ROTHMAN Page [id number] at 1824 All edits/amendments must be made on the electronic document DICTATION DATE: 01/07/191822 SENIOR TEST ANALYST: BARBARA 01/07/191822 RPT#: [id number] DC DATE:01/07/19 STATUS: DIS IN [facility] [address] [place] [address] END OF REPORT
== END 2019-01-07 18:09 | DRG 248 ==
LOC: D.ER 17:52 → D.M2 21:09 → OBSVTIME 21:09 → D.ICU 12-27 18:30 → D.M2 12-27 18:30 → D.ICU 01-06 04:35
PROVIDERS: Emergency Medicine; Family Medicine; Internal Medicine; Internal Medicine Interventional Cardiology; Orthopaedic Surgery; ADMIT Internal Medicine Nephrology; ATTEND Internal Medicine Nephrology
PROC: B2111ZZ Fluoroscopy of Multiple Coronary Arteries using Low Osmolar Contrast (ICD-10-PCS; 2018-12-27)
PROC: B2151ZZ Fluoroscopy of Left Heart using Low Osmolar Contrast (ICD-10-PCS; 2018-12-27)
PROC: 02703DZ Dilation of Coronary Artery, One Artery with Intraluminal Device, Percutaneous Approach (ICD-10-PCS; principal; 2018-12-27 10:24)
PROC: 4A023N7 Measurement of Cardiac Sampling and Pressure, Left Heart, Percutaneous Approach (ICD-10-PCS; 2018-12-27 10:24)
PROC: 047K3DZ Dilation of Right Femoral Artery with Intraluminal Device, Percutaneous Approach (ICD-10-PCS; 2019-01-04)
PROC: 0DJ08ZZ Inspection of Upper Intestinal Tract, Via Natural or Artificial Opening Endoscopic (ICD-10-PCS; 2019-01-07)
DX: I21.4 Non-ST elevation (NSTEMI) myocardial infarction (principal); N17.0 Acute kidney failure with tubular necrosis; J96.11 Chronic respiratory failure with hypoxia; N39.0 Urinary tract infection, site not specified; I25.10 Atherosclerotic heart disease of native coronary artery without angina pectoris; I10 Essential (primary) hypertension; E78.5 Hyperlipidemia, unspecified; J44.9 Chronic obstructive pulmonary disease, unspecified; E03.9 Hypothyroidism, unspecified; D64.9 Anemia, unspecified; F41.8 Other specified anxiety disorders; I70.211 Atherosclerosis of native arteries of extremities with intermittent claudication, right leg; M47.816 Spondylosis without myelopathy or radiculopathy, lumbar region; M25.532 Pain in left wrist; Z86.711 Personal history of pulmonary embolism; Z79.01 Long term (current) use of anticoagulants; N14.1 Nephropathy induced by other drugs, medicaments and biological substances; T50.8X5A Adverse effect of diagnostic agents, initial encounter; Z86.718 Personal history of other venous thrombosis and embolism; Z86.73 Personal history of transient ischemic attack (TIA), and cerebral infarction without residual deficits

== ENCOUNTER 2019-01-07 17:50 | Inpatient (IN) | payer MEDICARE ==
[~2019-01-07] VITALS: Ht 172.7 cm; Wt 75.8 kg
[~2019-01-07 17:50] MED LIST: COUMADIN5 MG PO; FUROSEMIDE40 MG PO; GLEEVEC100 MG PO; HCTZ PO; HYDROCODON-ACE1 EA10 PO; LEVOTHYROXINE75 MCG PO; LOSARTAN PO; MAG-OX 400 MG400 MG PO; MAGNESIUM OXID250 MG PO; MECLIZINE HCL25 MG PO; NEURONTIN 300300 MG PO; PEPCID AC20 MG PO; PLAVIX75 MG PO; POTASSIUM99 M1 PO; TYLENOL ARTHRI650 MG PO; ZETIA10 MG PO
[2019-01-07 19:46] VITALS: BP 129/56
--- NOTE | 2019-01-07 19:50 | NUR ---
AWAKE AND ALERT. IN THE PROCESS OF ADMISSION. RESPIRATIONS UNLABORED. PORTILLO PATENT. NO ACUTE DISTRESS NOTED.
[2019-01-07 21:49] VITALS: BP 129/56; BMI 25.4
--- NOTE | 2019-01-08 01:25 | NUR ---
SLEEPING WITH RESPIRATIONS UNLABORED. PORTILLO PATENT. NO DISTRESS NOTED. CALL LIGHT IN REACH.
[2019-01-08 03:28] LABS: APPEARANCE HAZY (CLEAR); BILIRUBIN NEGATIVE (NEGATIVE); COLOR YELLOW (YELLOW); GLUCOSE NEGATIVE (NEGATIVE); KETONE NEGATIVE (NEGATIVE); NITRITE NEGATIVE (NEGATIVE); PROTEIN TRACE mg/dL (NEGATIVE); SPECIFIC GRAVITY 1.015 (1.005-1.020); UROBILINOGEN NORMAL (NORMAL); WHITE CELLS - URINE RARE /hpf (NEGATIVE)
--- NOTE | 2019-01-08 05:10 | NUR ---
QUIET HOURS. MEDICATED FOR GENERALIZED PAIN X 2 THIS SHIFT. RESTING NOW WITH RESPIRATIONS UNLABORED. PORTILLO PATENT. NO DISTRESS NOTED. CALL LIGHT IN REACH.
[2019-01-08 06:18] LABS: BASOPHILS 0.6 % (0-2); EOSINOPHILS 5.5 % (0-7); HEMATOCRIT 25.7 % (42.0-54.0); HEMOGLOBIN 8.7 g/dL (13.5-17.5); IMMATURE GRANULOCYTES 1.4 % (0-5); LYMPHOCYTES 9.5 % (15-50); MCH 32.6 pg (26.0-34.0); MCHC 33.9 g/dL (31.0-37.0); MEAN PLATELET VOLUME 10.2 fL (7.4-10.4); MONOCYTES 7.6 % (2-11); NEUTROPHILS 75.4 % (40-80); PLATELET COUNT 272 10x3/uL (130-400); RBC 2.67 10x6/uL (4.20-6.10); RDW 15.7 % (11.5-14.5); WBC 7.1 10x3/uL (4.8-10.8)
[2019-01-08 06:31] LABS: ANION GAP 7.9 mmol/L (8-16); CALCIUM 7.6 mg/dL (8.5-10.1); POTASSIUM - SERUM 3.9 mmol/L (3.5-5.1)
[2019-01-08 06:34] LABS: CREATININE - SERUM 1.3 mg/dL (0.6-1.3)
[2019-01-08 06:45] LABS: MCV 96.3 fL (80.0-100.0)
--- NOTE | 2019-01-08 09:44 | NUR ---
PT AM MEDS ADMINISTERED. PT DENIES NEEDS. WCTM.
[2019-01-08 12:07] VITALS: Ht 172.7 cm; Wt 75.8 kg
[2019-01-08 15:26] LABS: ERYTHROCYTE SEDIMENTATION RATE 28 mm/hr (0-20)
[2019-01-08 16:54] LABS: INR 1.14 (0.85-1.17); PROTIME 14.1 SECONDS (11.6-15.0)
[2019-01-08 19:29] VITALS: BP 113/52
--- NOTE | 2019-01-08 19:33 | NUR ---
AWAKE AND ALERT. RESTING IN BED. RESPIRATIONS UNLABORED. PORTILLO PATENT AND DRAINING AT BEDSIDE. STATES HE HAD A GOOD DAY. NO ACUTE DISTRESS NOTED. CALL LIGHT IN REACH.
--- NOTE | 2019-01-09 00:47 | NUR ---
SLEEPING WITH RESPIRATIONS UNLABORED. NO DISTRESS NOTED. BANDAR PATENT. CALL LIGHT IN REACH.
--- NOTE | 2019-01-09 05:24 | NUR ---
QUIET HOURS. NO ACUTE CHANGES IN CONDITION THIS SHIFT. RESTING IN BED WITH NO DISTRESS NOTED. CALL LIGHT IN REACH.
[2019-01-09 07:10] LABS: INR 1.15 (0.85-1.17); PROTIME 14.2 SECONDS (11.6-15.0)
[2019-01-09 08:00] VITALS: BP 137/94
--- NOTE | 2019-01-09 09:10 | NUR ---
PATIENT IS ALERT/ORIENT. HAS CLEAR SPEECH THIS AM. BED ALARM ON. CALL LIGHT WITHIN REACH. VOICES NO NEEDS AT THIS TIME. WILL CONTINUE WITH PLAN OF CARE
--- NOTE | 2019-01-09 10:55 | NUR ---
PRN PAIN MEDICATION GIVEN FOR ALL OVER GENERAL PAIN PER PATIENT REQUEST
--- NOTE | 2019-01-09 13:10 | NUR ---
PATIENT HAS VISITORS IN ROOM. VOICES NO NEEDS AT THIS TIME.
[2019-01-09 19:26] VITALS: BP 138/64
--- NOTE | 2019-01-09 19:28 | NUR ---
AWAKE AND ALERT. RESTING IN BED WITH RESPIRATIONS UNLABORED. PORTILLO PATENT AND DRAINING AT BEDSIDE. NO ACUTE DISTRESS NOTED. STATES HE HAD A GOOD DAY. CALL LIGHT IN REACH.
--- NOTE | 2019-01-10 01:07 | NUR ---
SLEEPING WITH RESPIRATIONS UNLABORED. NO DISTRESS NOTED. BANDAR PATENT. CALL LIGHT IN REACH.
--- NOTE | 2019-01-10 05:08 | NUR ---
QUIET HOURS. NO ACUTE CHANGES IN CONDITION THIS SHIFT. RESTING IN BED AWAKE WITH RESPIRATIONS UNLABORED. NO DISTRESS NOTED. CALL LIGHT IN REACH.
[2019-01-10 06:31] LABS: BASOPHILS 0.2 % (0-2); EOSINOPHILS 0.7 % (0-7); HEMATOCRIT 27.1 % (42.0-54.0); HEMOGLOBIN 9.2 g/dL (13.5-17.5); IMMATURE GRANULOCYTES 1.3 % (0-5); LYMPHOCYTES 8.6 % (15-50); MCH 32.3 pg (26.0-34.0); MCHC 33.9 g/dL (31.0-37.0); MCV 95.1 fL (80.0-100.0); MEAN PLATELET VOLUME 10.2 fL (7.4-10.4); MONOCYTES 5.5 % (2-11); NEUTROPHILS 83.7 % (40-80); RBC 2.85 10x6/uL (4.20-6.10); RDW 15.2 % (11.5-14.5)
[2019-01-10 06:37] LABS: PLATELET COUNT 395 10x3/uL (130-400); WBC 9.5 10x3/uL (4.8-10.8)
[2019-01-10 06:48] LABS: INR 1.1 (0.85-1.17); PROTIME 13.7 SECONDS (11.6-15.0)
[2019-01-10 07:23] LABS: ANION GAP 11.4 mmol/L (8-16); CALCIUM 8.1 mg/dL (8.5-10.1); CARBON DIOXIDE 26.5 mmol/L (21.0-32.0); CREATININE - SERUM 1.2 mg/dL (0.6-1.3); POTASSIUM - SERUM 3.9 mmol/L (3.5-5.1)
--- NOTE | 2019-01-10 07:58 | NUR ---
ALERT AND ORIENTED. EATING BREAKFAST. CL IN REACH. RESP EVEN AND UNLABORED.
[2019-01-10 08:03] VITALS: BP 115/60
--- NOTE | 2019-01-10 12:57 | NUR ---
SITTING IN CHAIR EATING LUNCH. CL IN REACH. NO C/O PAIN.
--- NOTE | 2019-01-10 15:44 | NUR ---
NO CHANGE IN ASSESSMENT. RESTING WO DISTRESS OR C/O PAIN. CL IN REACH.
--- NOTE | 2019-01-10 19:10 | NUR ---
BEDSIDE REPORT COMPLETE. PT LYING IN BED ALERT AND ORIENTED X4. DENIES ANY NEEDS OR PAIN. NO SIGNS OF ACUTE DISTRESS NOTED. VS STABLE. SHIFT ASSESSMENT COMPLETE. CL IN REACH. FALL PRECAUTIONS IN PLACE. WILL CONTINUE TO MONITOR
[2019-01-10 21:02] VITALS: BP 151/79
--- NOTE | 2019-01-10 23:09 | NUR ---
QUIET HOURS. PT LYING IN BED EYES CLOSED RESTING QUIETLY. NO SIGNS OF DISTRESS NOTED. CL IN REACH. WILL CONTINUE TO MONITOR
--- NOTE | 2019-01-11 03:24 | NUR ---
PT LYING IN BED SUPINE, HOB 30 DEGREES ALERT. C/O 8/10 RADIATING THROBBING RIGHT SHOULDER, LEG, AND FOOT PAIN. ADMININSTERED NORCO 10/325MG AND APPLIED HEAT TO RIGHT SHOULDER. NO OTHER CONCERNS VOICED AT THIS TIME. CL IN REACH. CONTINUES ON 2L VIA NC. WILL CONTINUE TO MONITOR
[2019-01-11 05:43] LABS: INR 1.25 (0.85-1.17); PROTIME 15.2 SECONDS (11.6-15.0)
[2019-01-11 07:57] VITALS: BP 116/66
--- NOTE | 2019-01-11 10:47 | NUR ---
PATIENT ADMITTED TO REHAB FROM ACUTE FLOOR. DR. RILEY IS HIS PCP. HE WAS A CLIENT OF [facility] IN THE PAST. DME AT HOME IS A CANE, WALKER, C-PAP AND HE WEARS O2 AT HS. DISCHARGE PLANS ARE FOR HIM TO DISCHARGE BACK HOME WITH HIS SPOUSE. WILL CONTINUE TO FOLLOW WITH PATIENT
--- NOTE | 2019-01-11 15:08 | NUR ---
Nutrition Follow-up: Chart reviewed. Diet: Regular, [facility] with chopped meats PO intake: 80-100%; reports good appetite. Reports that due to his nondenominational he does not eat pork. He received soup with de la rosa bits on it today. Labs noted: Glucose 124. Significant meds: prednisone, coumadin. Wt: 167# (01/08/19). +BM Continue current nutrition regimen. Will address diet order regarding pork preference. RD Following.
--- NOTE | 2019-01-11 15:53 | NUR ---
PT RESTING IN BED WITH EYES OPEN CALL LIGHT IN REACH WILL MONITER
--- NOTE | 2019-01-11 18:07 | NUR ---
PT RESTING IN BED WITH EYES OPEN CALL LIGHT IN REACH NO PROBLEMS WILL MONITER
--- NOTE | 2019-01-11 18:08 | NUR ---
PT RESTING IN BED WITH EYES OPEN CALL LIGHT IN REACH WILL MONITER
--- NOTE | 2019-01-11 19:15 | NUR ---
BEDSIDE REPORT COMPLETE. PT SITTING UP IN BED ALERT AND ORIENTED X4. DENIES ANY NEEDS OR PAIN. NO SIGNS OF ACUTE DISTRESS NOTED. VS STABLE. SHIFT ASSESSMENT COMPLETE. CL IN REACH. FALL PRECAUTIONS IN PLACE. WILL CONTINUE TO MONITOR
[2019-01-11 20:56] VITALS: BP 146/80
--- NOTE | 2019-01-11 23:51 | NUR ---
QUIET HOURS. PT LYING IN BED EYES CLOSED RESTING. CONTINUES ON 2L VIA NC. CL IN REACH
--- NOTE | 2019-01-12 03:48 | NUR ---
PT LYING IN BED EYES CLOSED RESTING. RR EVEN AND UNLABORED. CL IN REACH
[2019-01-12 06:35] LABS: BASOPHILS 0.2 % (0-2); EOSINOPHILS 0.3 % (0-7); HEMATOCRIT 27.9 % (42.0-54.0); HEMOGLOBIN 9.3 g/dL (13.5-17.5); IMMATURE GRANULOCYTES 1.9 % (0-5); LYMPHOCYTES 6.5 % (15-50); MCH 32.1 pg (26.0-34.0); MCHC 33.3 g/dL (31.0-37.0); MCV 96.2 fL (80.0-100.0); MEAN PLATELET VOLUME 9.6 fL (7.4-10.4); NEUTROPHILS 84.1 % (40-80); PLATELET COUNT 407 10x3/uL (130-400); RDW 15.2 % (11.5-14.5)
[2019-01-12 06:46] LABS: ANION GAP 8.4 mmol/L (8-16); CALCIUM 8.3 mg/dL (8.5-10.1); CARBON DIOXIDE 28.2 mmol/L (21.0-32.0); CREATININE - SERUM 1.1 mg/dL (0.6-1.3); POTASSIUM - SERUM 4.6 mmol/L (3.5-5.1)
[2019-01-12 06:57] LABS: INR 1.45 (0.85-1.17)
[2019-01-12 08:08] VITALS: BP 145/91
--- NOTE | 2019-01-12 09:20 | NUR ---
PT AM MEDS ADMINISTERED. PT DENIES NEEDS. WCTM.
--- NOTE | 2019-01-12 16:16 | NUR ---
CARE TEAM MEETING: PATIENT IS PROGRESSING IN THERAPY . TENATIVE DISCHARGE DATE IS 01/21/19. HE WILL BE RA AT NEXT MEETING. WILL CONTINUE TO FOLLOW WITH PATIENT
--- NOTE | 2019-01-12 17:28 | NUR ---
PT EATING DINNER, DENIES NEEDS. WCTM.
--- NOTE | 2019-01-12 19:39 | NUR ---
RESTINNG IN BED WIT EYES CLOSED AND RESPIRATIONS UNLABORED. PORTILLO PATENT. NO ACUTE DISTRESS NOTED. CALL LIGHT IN REACH.
[2019-01-12 20:37] VITALS: BP 152/89
--- NOTE | 2019-01-13 02:38 | NUR ---
SLEEPING WITH NO DISTRESS NOTED. CALL LIGHT IN REACH.
--- NOTE | 2019-01-13 06:13 | NUR ---
QUIET HOURS. RESTING IN BED WITH RESPIRATIONS UNLABORED. BANDAR PATENT. NO DISTRESS NOTED. CALL LIGHT IN REACH.
[2019-01-13 07:21] LABS: INR 1.7 (0.85-1.17); PROTIME 19.4 SECONDS (11.6-15.0)
[2019-01-13 08:28] VITALS: BP 147/69
--- NOTE | 2019-01-13 10:00 | NUR ---
PT AM MEDS ADMINISTERED. PT DENIES NEEDS. WCTM.
--- NOTE | 2019-01-13 19:57 | NUR ---
AWAKE AND ALERT. RESTING IN BED. RESPIRATIONS UNLABORED. PORTILLO PATENT. NO DISTRESS NOTED. CALL LIGHT IN REACH.
[2019-01-13 21:11] VITALS: BP 129/72
--- NOTE | 2019-01-14 01:35 | NUR ---
SLEEPING WITH RESPIRATIONS UNLABORED. NO DISTRESS NOTED. CALL LIGHT IN REACH.
--- NOTE | 2019-01-14 02:11 | NUR ---
VOMITED SMALL AMOUNT OF BILE LIQUID. MEDICATED WITH ZOFRAN. ASSITED TO BEDPAN, WILL CONTINUE TO MONITOR.
--- NOTE | 2019-01-14 02:25 | NUR ---
VOMITED AGAIN. LARGE AMOUNT OF BILE LIQUID. CLEANED UP AND HEAD OF BED ELEVATED. HAS EMESIS BAG AT BEDSIDE. ON BEDPAN HAVING BM.
--- NOTE | 2019-01-14 02:48 | NUR ---
HAD LARGE WATERY STOOL. NO FURTHER VOMITING AT THIS TIME. MESSAGE LEFT ON DR'S ROUNDING SHEET ABOUT PATIENT VOMITING AND DIARRHEA.
--- NOTE | 2019-01-14 03:37 | NUR ---
CONTINUES TO VOMIT SMALL TO MODERATE AMOUNTS OF BILE LIQUID EMESIS AND HAVE DIARREHA. ARNOLD CID APRN NOTIFIED AND NEW ORDERS RECIEVED FOR KUB. RADIOLOGY DEPARTMENT NOTIFED. WILL CONTINUE TO MONITOR.
--- NOTE | 2019-01-14 04:26 | NUR ---
XRAY HERE TO DO KUB.
[2019-01-14 05:20] LABS: ANION GAP 10.4 mmol/L (8-16); CALCIUM 8.4 mg/dL (8.5-10.1); CARBON DIOXIDE 26.1 mmol/L (21.0-32.0); CREATININE - SERUM 1.1 mg/dL (0.6-1.3); POTASSIUM - SERUM 4.5 mmol/L (3.5-5.1)
[2019-01-14 05:40] LABS: INR 2.02 (0.85-1.17); PROTIME 22.2 SECONDS (11.6-15.0)
[2019-01-14 06:49] LABS: MCH 32.2 pg (26.0-34.0); MCHC 33.3 g/dL (31.0-37.0); MCV 96.5 fL (80.0-100.0); MEAN PLATELET VOLUME 9.8 fL (7.4-10.4); PLATELET COUNT 474 10x3/uL (130-400); RBC 3.73 10x6/uL (4.20-6.10); RDW 15.9 % (11.5-14.5); WBC 30.1 10x3/uL (4.8-10.8)
[2019-01-14 08:00] VITALS: BP 150/67
--- NOTE | 2019-01-14 08:58 | NUR ---
PATIENT IS ALERT/ORIENT. CALL LIGHT WITHIN REACH. C/O NAUSEA. PRN ZOFRAN GIVEN. HAS HAD LOOSE DIARRHEA STOOL X1 INCONT THIS AM. WILL CONTINUE WITH PLAN OF CARE
[2019-01-14 09:32] LABS: LYMPHOCYTES 5 % (15-50); MONOCYTES 9 % (2-11); NEUTROPHILS 80 % (40-80)
[2019-01-14 09:41] LABS: PLATELET ESTIMATE INCREASED
[2019-01-14 09:42] LABS: ANISOCYTOSIS OCC; ROULEAUX OCC
--- NOTE | 2019-01-14 11:07 | NUR ---
NUTRITION FOLLOW UP: Patient stated that his appetite is poor now. He has been experiencing nausea, vomiting, and uncontrollable diarrhea since last night (01/13). Patient stated he had a lot of abdominal pain. Patient did not want ensure sent with trays due to he only drinks one per day and has many in his room. DIET: Mechanical Soft w/ chopped meats SUPPLEMENT: Discontinued PO INTAKE: 100% x 8 meals; 0% x 2 meals WT: 167 lbs BM: 01/14- diarrhea SIG MEDS: Zofran, Coumadin, Potassium Gluconate, Pepcid, Mag Ox, [place] SIG LABS: BUN-37(H), Calcium-8.4(L) GOALS: Diarrhea and vomiting cessation PO intake >/= 75% for meals Stable Weight DHS Will continue to monitor closely. Clinical Dietitian to continue following DHS.
--- NOTE | 2019-01-14 15:54 | NUR ---
U/A COLLECTED FROM PATIENT. TAKEN TO LAB
[2019-01-14 16:14] LABS: APPEARANCE CLEAR (CLEAR); COLOR YELLOW (YELLOW)
[2019-01-14 16:15] LABS: BILIRUBIN NEGATIVE (NEGATIVE); GLUCOSE NEGATIVE (NEGATIVE); KETONE NEGATIVE (NEGATIVE); NITRITE NEGATIVE (NEGATIVE); PROTEIN NEGATIVE (NEGATIVE); SPECIFIC GRAVITY 1.015 (1.005-1.020); UROBILINOGEN NORMAL (NORMAL)
--- NOTE | 2019-01-14 17:12 | NUR ---
PATIENT STATES THAT HE IS NOT HUNGRY. HAS BEEN ABLE TO KEEP FLUIDS DOWN
--- NOTE | 2019-01-14 19:00 | NUR ---
PT USED BEDPAN, HAVING A VERY LARGE LOOSE FOUL SMELLING BM. SPECIMEN FOR CDIFF SENT TO THE LAB.
--- NOTE | 2019-01-14 19:15 | NUR ---
LAB CALLED STATING PT IS CDIFF POSITIVE. PT PLACED ON ENTERIC ISONLATION PRECAUTIONS.
--- NOTE | 2019-01-14 20:58 | NUR ---
PT RESTING IN BED WITH EYES OPEN. VOICED COMPLAINT OF BACK PAIN LEVEL OF 6. MEDICATED PER MAR. TOLERATED PM MEDS WITHOUT DIFFICULTY.
[2019-01-14 21:05] VITALS: BP 119/59
--- NOTE | 2019-01-14 23:17 | NUR ---
I have reviewed this patient and I concur with the Shift Assessment completed by the Licensed Practical Nurse today this shift.
--- NOTE | 2019-01-15 01:15 | NUR ---
PT ASSISTED ONTO BEDPAN. LARGE LOOSE BM NOTED. CONTACT PRECAUTIONS OBSERVED.
[2019-01-15 03:13] LABS: BASOPHILS 0.1 % (0-2); EOSINOPHILS 0.7 % (0-7); IMMATURE GRANULOCYTES 0.3 % (0-5); LYMPHOCYTES 4.8 % (15-50); MCV 96.9 fL (80.0-100.0); MEAN PLATELET VOLUME 9.4 fL (7.4-10.4); MONOCYTES 3.6 % (2-11); NEUTROPHILS 90.5 % (40-80); RDW 15.9 % (11.5-14.5)
[2019-01-15 03:20] LABS: HEMOGLOBIN 9.3 g/dL (13.5-17.5); RBC 2.91 10x6/uL (4.20-6.10); WBC 12.1 10x3/uL (4.8-10.8)
[2019-01-15 03:21] LABS: HEMATOCRIT 28.2 % (42.0-54.0); PLATELET COUNT 320 10x3/uL (130-400)
[2019-01-15 03:25] LABS: ANION GAP 7.9 mmol/L (8-16); CALCIUM 7.7 mg/dL (8.5-10.1); CREATININE - SERUM 1.1 mg/dL (0.6-1.3); POTASSIUM - SERUM 3.9 mmol/L (3.5-5.1)
[2019-01-15 03:27] LABS: INR 2.27 (0.85-1.17); PROTIME 24.4 SECONDS (11.6-15.0)
--- NOTE | 2019-01-15 04:43 | NUR ---
RESTING IN BED WITH EYES CLOSED.
[2019-01-15 08:00] VITALS: BP 123/61
--- NOTE | 2019-01-15 08:45 | NUR ---
PATIENT REMAINS IN CONTACT ISOLATION FOR C-DIFF. ALERT/ORIENT. CALL LIGHT WITHIN REACH. VOICES NO NEEDS AT THIS TIME. PATIENT HAS A BETTER APPETITE THIS AM. ATE 10% OF BREAKFAST AND DRANK ALL OF HIS ENSURE. WILL CONTINUE WITH PLAN OF CARE
--- NOTE | 2019-01-15 12:41 | NUR ---
PATIENT HAS NOT HAD ANY THERAPY TODAY. RESTING IN BED. CALL LIGHT WITHIN REACH. VOICES NO NEEDS. CONTINUE TO HAVE POOR APPETITE
--- NOTE | 2019-01-15 21:03 | NUR ---
PT IS RESTING IN BED WITH EYES OPEN. ALERT AND ORIENTED X 3. PT VOICED COMPLAINT OF A BACK PAIN LEVEL OF 7. MEDICATED PER MAR. CONTACT PRECAUTIONS OBSERVED FOR CDIFF. PT ASSISTED TO USE BEDPAN PRN. PORTILLO CATH PATENT AND DRAINING TO A GRAVITY BAG. NO FURTHER NEEDS VOICED. SR'S ARE UP X 2 IN BED. CALL LIGHT AND BEDSIDE TABLE ARE WITHIN EASY REACH.
--- NOTE | 2019-01-16 00:11 | NUR ---
I have reviewed this patient and I concur with the Shift Assessment completed by the Licensed Practical Nurse today this shift.
--- NOTE | 2019-01-16 04:05 | NUR ---
RESTING IN BED WITH EYES CLOSED.
[2019-01-16 05:30] LABS: INR 2.18 (0.85-1.17); PROTIME 23.6 SECONDS (11.6-15.0)
--- NOTE | 2019-01-16 07:40 | NUR ---
PT RESTING IN BED WITH EYES OPEN CALL LIGHT IN REACH WILL MONITER
[2019-01-16 09:03] VITALS: BP 137/81
--- NOTE | 2019-01-16 17:59 | NUR ---
PT RESTING IN BED WITH EYES OPEN CALL LIGHT IN REACH WILL MONITER
--- NOTE | 2019-01-16 19:00 | NUR ---
PATIENT ALERT AND ORIENTED WHEN ENTERING THE ROOM. HEAD OF BED ELEVATED TO A 35 DEGREE ANGLE. CONTACT PRECAUTIONS IN PLACE. PATIENT HAS NO IV AND RESPIRATIONS ARE EVEN AND UNLABORED ON ROOM AIR. PATIENT WEARING DENTURES AT THIS TIME. DENIES WANTING TO REMOVE BEFORE BED TIME. BRACIAL PULSES PALPABLE. ACTIVE BOWEL SOUNDS NOTED. HAS PORTILLO CATHETER WITH YELLOW URINE. DENIES NEED FOR BM AND STATES HE HAS NOT HAD ONE TODAY BUT SPEAKS OF SEVERAL IN PRIOR DAYS. DENIES PAIN AT THIS TIME. DENIES DISCOMORT. CALL LIGHT IN REACH OF PATIENT. CPOC.
[2019-01-16 20:00] VITALS: BP 132/67
--- NOTE | 2019-01-17 02:54 | NUR ---
I have reviewed this patient and I concur with the Shift Assessment completed by the Licensed Practical Nurse today this shift.
[2019-01-17 05:23] LABS: BASOPHILS 0 % (0-2); EOSINOPHILS 0 % (0-7); HEMATOCRIT 29.8 % (42.0-54.0); HEMOGLOBIN 9.7 g/dL (13.5-17.5); IMMATURE GRANULOCYTES 0.3 % (0-5); LYMPHOCYTES 7.1 % (15-50); MCH 31.6 pg (26.0-34.0); MCHC 32.6 g/dL (31.0-37.0); MCV 97.1 fL (80.0-100.0); MEAN PLATELET VOLUME 9.9 fL (7.4-10.4); MONOCYTES 4.1 % (2-11); NEUTROPHILS 88.5 % (40-80); PLATELET COUNT 307 10x3/uL (130-400); RBC 3.07 10x6/uL (4.20-6.10); RDW 15.6 % (11.5-14.5); WBC 9.2 10x3/uL (4.8-10.8)
[2019-01-17 05:35] LABS: INR 2.58 (0.85-1.17)
[2019-01-17 05:36] LABS: CALC OSMOLALITY 284 mosm/kg (275-300); CALCIUM 7.9 mg/dL (8.5-10.1); CARBON DIOXIDE 28.8 mmol/L (21.0-32.0); CHLORIDE - SERUM 104 mmol/L (98-107); CREATININE - SERUM 0.9 mg/dL (0.6-1.3); GLUCOSE 133 mg/dL (74-106); POTASSIUM - SERUM 4.6 mmol/L (3.5-5.1); SODIUM 138 mmol/L (136-145); UREA NITROGEN 31 mg/dL (7-18); eGFR NON AFRICAN AMERICAN 86 mL/min (90-120)
--- NOTE | 2019-01-17 06:01 | NUR ---
AM MEDS PROVIDED. PATIENT TOLERATED WELL. DENIES PAIN AND DISCOMFORT AT THIS TIME. EMPTIED PATIENT PORTILLO. 1200 CC OF YELLOW URINE OUT. NO BM THROUGH NIGHT. CALL LIGHT WITHIN REACH
--- NOTE | 2019-01-17 07:28 | NUR ---
REPORT RECIEVED. PT SITTING UP IN BED. RR EVEN AND UNLABORED. NO DISTRESS NOTED CURRENTLY ON 3L NC. PORTILLO DRAINING URINE. BED LOCKED AND IN LOWEST POSITION, CALL LIGHT WITHIN REACH. WILL CTM.
[2019-01-17 08:14] VITALS: BP 134/76
--- NOTE | 2019-01-17 19:52 | NUR ---
REC'D CHGE OF SHIFT WALKING ROUNDS.ENTERIC ISOLATION REMAINS IN PROGRESS.02 NC 3L RESP. DEEP AND EVEN DENIES ANY RESP. DIFFICULTY AT PRESENT TIME.PORTILLO PATENT AND DRAINING STRW YELLOW COLORED URINE. WILL CONTINUE TO MONITOR FOR ANY CHGES AND FOLLOW CURRENT PLAN OF CARE.
[2019-01-17 21:00] VITALS: BP 154/62
--- NOTE | 2019-01-18 02:38 | NUR ---
I have reviewed this patient and I concur with the Shift Assessment completed by the Licensed Practical Nurse today this shift.
[2019-01-18 06:24] LABS: INR 2.96 (0.85-1.17)
[2019-01-18 08:21] VITALS: BP 132/80
--- NOTE | 2019-01-18 11:00 | NUR ---
PT AM MEDS ADMINISTERED. PT DENIES NEEDS. WCTM.
--- NOTE | 2019-01-18 12:52 | NUR ---
Nutrition Follow-up: Diet: Regular PO intake: 100% x last 6 meals; reports good appetite. He uses Ensure to swallow his pills only. He had several on his bedside table. Wt: 167# (01/08/19), no new wt. Last BM 01/16/19 Significant meds: coumadin, flagyl, prednisone Labs noted: Glu 133. Noted "reddened area buttocks." Continue current nutrition regimen. RD Following.
--- NOTE | 2019-01-18 17:07 | NUR ---
PT HAD EPISODE OF INCONT BOWEL. PT BED LINENS CHANGED. STAT LOCK TO PORTILLO CHANGED ALSO AT THIS TIME. WCTM.
--- NOTE | 2019-01-18 19:37 | NUR ---
AWAKE AND ALERT. RESTING IN BED WITH RESPIRATIONS UNLABORED. REMAINS IN CONTACT ISOLATION. PORTILLO PATENT. NO ACUTE DISTRESS NOTED. CALL LIGHT IN REACH.
[2019-01-18 21:05] VITALS: BP 151/82
--- NOTE | 2019-01-19 02:47 | NUR ---
ASSISTED WITH BEDPAN BUT DID NOT HAVE A BM. RESTING WITH NO DISTRESS NOTED. CALL LIGHT IN REACH.
--- NOTE | 2019-01-19 05:48 | NUR ---
QUIET HOURS. HAD ONE LOOSE STOOL TONIGHT AND AND ONE VERY SMALL INCONTINENT SMEAR ON PAD. STATES NOW HE FEELS LIKE "MY LUNGS ARE FILLING UP WITH FLUID" LUNG RECIO CLEAR WITH THE EXCEPTION OF LOWER LEFT BASE. NO ACUTE RESPIRATORY DISTRESS NOTED. MESSAGE LEFT ON ROUNDING SHEET FOR DR RILEY.
[2019-01-19 06:19] LABS: BASOPHILS 0 % (0-2); EOSINOPHILS 0.1 % (0-7); HEMATOCRIT 28.9 % (42.0-54.0); HEMOGLOBIN 9.6 g/dL (13.5-17.5); IMMATURE GRANULOCYTES 0.3 % (0-5); LYMPHOCYTES 7.5 % (15-50); MCH 31.6 pg (26.0-34.0); MCHC 33.2 g/dL (31.0-37.0); MEAN PLATELET VOLUME 9.8 fL (7.4-10.4); NEUTROPHILS 84.1 % (40-80); PLATELET COUNT 275 10x3/uL (130-400); RBC 3.04 10x6/uL (4.20-6.10); RDW 15.5 % (11.5-14.5); WBC 8.9 10x3/uL (4.8-10.8)
[2019-01-19 06:23] LABS: MCV 95.1 fL (80.0-100.0)
[2019-01-19 06:43] LABS: CALC OSMOLALITY 280 mosm/kg (275-300); CALCIUM 7.5 mg/dL (8.5-10.1); CARBON DIOXIDE 26.5 mmol/L (21.0-32.0); CHLORIDE - SERUM 105 mmol/L (98-107); GLUCOSE 96 mg/dL (74-106); POTASSIUM - SERUM 4.2 mmol/L (3.5-5.1); SODIUM 138 mmol/L (136-145); UREA NITROGEN 26 mg/dL (7-18); eGFR NON AFRICAN AMERICAN 76 mL/min (90-120)
[2019-01-19 08:16] VITALS: BP 138/76
--- NOTE | 2019-01-19 09:12 | RHP ---
PATIENT: JOSE ROTHMAN MEDICAL RECORD: [id number] ACCOUNT: [id number] LOCATION:[facility] [address] : 37 ADMISSION DATE: 01/07/19 REHABILITATION HISTORY AND PHYSICAL EXAMINATION POST ADMISSION PHYSICIAN EXAMINATION DATE OF ADMISSION: 01/07/2019 ADMITTING DIAGNOSIS: Disuse myopathy. HISTORY OF PRESENT ILLNESS: The patient is an 83-year-old gentleman with history of hypertension, hyperlipidemia, hypothyroidism, COPD, coronary artery disease with stent placement in the past and a PE in the past, on Coumadin. The patient presented to the ER with complaints of having pain, developed just above his right knee that radiated to the right side of his abdomen, into his shoulder. He also has some chest pain, shortness of breath, dyspnea, was only able to ambulate approximately 10 feet. He was attending his granddaughter's wedding when the symptoms started. He was found to have no evidence of PE; however, his cardiac enzymes were elevated, consistent with a non-ST segment elevation [place]. He has complained of some left wrist pain with no urologic problems. He was seen and followed by cardiology, gastroenterology, neurosurgery and orthopedic surgery during his acute stay. He was transferred to the ICU secondary to hypotension and decreased H&H requiring blood transfusion on 01/04/2019. His PT and INR were decreased at 1.67 and he had a successful PTCA and stenting of the right superior femoral artery going from 100% stenosis to no significant residual. During his acute hospitalization, his creatinine has been normal; however, he did bump up slightly up to 2.6. He has had two peripheral catheterization procedures, first on the , second on the . He has also had some contrast, which elevated his renal functions. He is currently on telemetry, he is having acute pain, monitoring closely for any signs of bleeding or decreased H&H requiring further transfusions. We are monitoring his blood levels, watching his acute kidney injury. He has had some proximal muscle weakness, deconditioning, debility, impaired mobility, gait disturbance, weakness. He is a high fall risk and has self-care deficits. These are all barriers to his discharge home at this time. He lives at home with his , was independent with ambulation and ADLs with use of a rolling walker. His is in a wheelchair and he is her caregiver. He is currently mod assist to max assist with mobility and set up for mod assist with his ADLs. He and his family would like for him to return home at his prior level of functioning or better if possible. COMORBIDITIES: Include non-ST segment elevation myocardial infarction, chronic anticoagulation, status post stent placement, hypertension, hyperlipidemia, coronary artery disease, chronic hypoxic respiratory failure, depression, anxiety, spondylosis, diffuse gastritis, anemia and hypotension. PAST MEDICAL HISTORY: Significant for TIA, vertigo, history of coronary artery disease, stent placement, asthma, got a history of arthritis, hypertension, hyperlipidemia, and PE. PAST SURGICAL HISTORY: Includes gallbladder surgery. He has had cataract surgery bilaterally and surgery on his tympanic membrane. ALLERGIES: TETANUS DIPHTHERIA TOXOID AND PENICILLIN. HISTORY AND PHYSICAL [id number] JOSE ROTHMAN CURRENT MEDICATIONS: Include Gleevec, he is on 400 mg daily; potassium 99 mg daily; Pepcid 20 mg daily; Zetia 10 mg daily; Plavix 75 mg daily; levothyroxine 75 mcg daily; Mag-Ox 200 mg b.i.d.; Neurontin 300 mg b.i.d.; meclizine 25 b.i.d. p.r.n.; [place] 10/325 one tab every 4 hours p.r.n., and Tylenol 650 every 8 hours p.r.n. HABITS: No alcohol or tobacco use. FAMILY HISTORY: Noncontributory. SOCIAL HISTORY: The patient hopes to return back home with his . Once again, he is her main caregiver. REVIEW OF SYSTEMS: GENERAL: He does complain of weakness and fatigue. HEENT: Denies cold, cough, or congestion. CARDIOVASCULAR: Denies chest pain at this time. LUNGS: He does complain of occasional shortness of breath. EXTREMITIES: On extremity vila, he does complain of diffuse pain, just in his joints. PHYSICAL EXAMINATION: VITAL SIGNS: Stable. He is afebrile. GENERAL: A well-developed gentleman in no acute distress, alert upon exam. HEENT: Normocephalic and atraumatic. Mucosa moist. NECK: Supple. No lymphadenopathy. LUNGS: Clear at this time. No wheezing or rales. HEART: Regular rate and rhythm. No murmurs, rubs or gallops. ABDOMEN: Soft, benign and nondistended. Positive bowel sounds times 4. EXTREMITIES: No clubbing, cyanosis or edema. He does have pain, though with movement of his knee joints and elbows. NEUROLOGIC: He does have proximal muscle weakness. LABORATORY DATA: His white count is 7.1, H&H of 8.7 and 25.7 and platelet count is 272. His sodium is 141, potassium 3.9, BUN and creatinine of 39 and 1.3 and blood sugar is 118. His admit UA is essentially negative. 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 The patient has potential to make improvement. We instituted the following multidisciplinary therapies, include, but not limited to physical, occupational, respiratory, speech, nutritional services, prosthetics and orthotics. Given his complex medical condition and risks for more complications, rehabilitation services cannot be provided at a low level of care such as longterm facility. PLAN: 1. Admit to [facility] for intensive inpatient therapy to include the following disciplines: A. Physical therapy to improve gait, all transfer skills and bed mobility to a modified independent level. B. Occupational therapy to a modified independent level. C. Case management to assist with discharge planning and placement options. D. Nutrition to assist with nutritional needs. E. Rehabilitation nursing to assist in monitoring the underlying medical HISTORY AND PHYSICAL [id number] JOSE ROTHMAN W conditions and to assist with any type of bowel or bladder management. 2. The patient's current medication and medical care will be continued. 3. The patient will be placed on standard fall precautions. 4. The patient's estimated length of stay is approximately 7-10 days. 5. We will address whether he will be restarted on his Coumadin at some point or just remain on Plavix. TRANSINT:[id number] Voice Confirmation ID: [id number] DOCUMENT ID: [id number] POLO notes whether there has been none or any medical/functional change since admission: - No change since prescreen. POLO attests patient continues to be appropriate for IRF: - Continues to be appropriate. RITESH RILEY MD at 0912 CC: [id number] DICTATION DATE: 01/08/19 1055 DELICATESSEN GOODS STOCK CLERK: 01/08/19 1138 ADM IN [facility] [address] [facility] [address]
--- NOTE | 2019-01-19 16:14 | NUR ---
CARE TEAM MEETING: PATIENT SPOUSE AND DAUGHTER ATTENDED MEETING TODAY. THEIR QUESTIONS AND CONCERNS WERE ADDRESSED. AT THIS TIME THE FAMILY REQUEST THAT A REFERRAL BE MADE TO [facility] DUE TO THE FACT THE HIS SPOUSE IS UNABLE TO CARE FOR OR ASSIT WITH HIS CARE. A REFERRAL HAS BEEN FAXED WITH MICKEY RAMOS
[2019-01-19 17:22] LABS: INR 1.67 (0.85-1.17); PROTIME 19.1 SECONDS (11.6-15.0)
--- NOTE | 2019-01-19 19:00 | NUR ---
BEDSIDE REPORT COMPLETE. PT LYING IN BED SUPINE EYES CLOSED RESTING. HOB 30 DEGREES. EASILY AROUSED WITH VERBAL STIMULI. DENIES ANY NEEDS OR PAIN. PORTILLO PATENT AND FREE FROM KINKS. CLAMPED F/C FOR BLADDER TRAINING. EDUCATED PT ON BLADDER TRAINING BEFORE F/C REMOVAL. INFORMED PT TO CALL NURSING STAFF IF FEELS ANY PRESSURE OR URGE TO URINATE. PT VERBALIZED UNDERSTANING. CONTINUES ON 2L VIA NC. NO SIGNS OF ACUTE DISTRESS NOTED. VS STABLE. SHIFT ASSESSMENT COMPLETE. CL IN REACH. FALL PRECAUTIONS IN PLACE. WILL CONTINUE TO MONITOR.
--- NOTE | 2019-01-19 21:10 | NUR ---
PT STATES PRESSURE IN LOWER ABDOMEN. UNCLAMPED F/C 350ML CONCENTRATED URINE RECLAMPED F/C TO CONTINUE BLADDER TRAINING.
[2019-01-19 21:20] VITALS: BP 142/58
--- NOTE | 2019-01-19 23:30 | NUR ---
PT CALLED AND STATED URGE TO URINATE. UNCLAMPED F/C 300ML CONCENTRATED URNINE. CONTINUE WITH BLADDER TRAINING. PT DENIES ANY OTHER NEEDS.
--- NOTE | 2019-01-20 02:00 | NUR ---
UNCLAMPED F/C 250ML CONCENTRATED URINE OUTPUT. CONTINUE WITH BT. PT LYING IN BED EYES CLOSED RESTING. NO SIGNS OF ACUTE DISTRESS NOTED. CL IN REACH
--- NOTE | 2019-01-20 05:15 | NUR ---
UNCLAMPED F/C 200ML CONCENTRATED URINE OUTPUT. PT LYING IN BED AWAKE. DENIES ANY NEEDS OR PAIN. NO SIGNS OF ACUTE DISTRESS NOTED. WILL CONTINUE TO MONITOR
[2019-01-20 07:12] LABS: INR 1.98 (0.85-1.17); PROTIME 21.8 SECONDS (11.6-15.0)
--- NOTE | 2019-01-20 07:48 | NUR ---
REPORT RECIEVED. PT RESTING QUIETLY, RISE AND FALL OF CHEST NOTED. PT CURRENTLY ON 3L NC. BED LOCKED AND IN LOWEST POSITION, CALL LIGHT WITHIN REACH. WILL CTM
[2019-01-20 08:00] VITALS: BP 151/67
--- NOTE | 2019-01-20 08:00 | NUR ---
I have reviewed this patient and I concur with the Shift Assessment completed by the Licensed Practical Nurse today this shift.
--- NOTE | 2019-01-20 13:41 | NUR ---
PATIENT HAS BEEN ACCPETED TO [facility] AND WILL DISCHARGE THERE 01/21/19 VIA FACILITY VAN. PATIENT AND SPOUSE HAS BEEN NOTIFIED. WILL CONTINUE TO FOLLOW WITH PATIENT
--- NOTE | 2019-01-20 19:10 | NUR ---
BEDSIDE REPORT COMPLETE. PT SITTING UP IN BED ALERT AND ORIENTED X4. DENIES ANY PAIN. C/O FEELING NEED TO VOID UNCLAMPED F/C 200ML YELLOW URINE OUTPUT. NO OTHER CONCERNS VOICED. VS STABLE. SHIFT ASSESSMENT COMPLETE. CL IN REACH. FALL PRECAUTIONS IN PLACE. WILL CONTINUE TO MONITOR
[2019-01-20 19:22] VITALS: BP 138/78
--- NOTE | 2019-01-20 23:14 | NUR ---
UNCLAMPED PORTILLO 250ML YELLOW OUTPUT. CONTINUE BLADDER TRAINING
--- NOTE | 2019-01-20 23:35 | NUR ---
QUIET HOURS. PT LYING IN BED EYES CLOSED RESTING QUIETLY. RR EVEN AND UNLABORED. CONTINUES ON 2L VIA NC. CL IN REACH
--- NOTE | 2019-01-21 02:28 | NUR ---
PT LYING IN BED EYES CLOSED RESTING. RR EVEN AND UNLABORED. CONTINUES ON 2L VIA NC. CL IN REACH
--- NOTE | 2019-01-21 07:29 | NUR ---
REPORT RECIEVED. PT SITTING UP IN BED. PORTILLO PULLED BY [place] AT THIS TIME. PT TOLERATED WELL. RR EVEN AND UNLABORED. NO DISTRESS NOTED. PT WEARING 3L NC. BED LOCKED AND IN LOWEST POSITION, CALL LIGHT WITHIN REACH. WILL CTM
[2019-01-21 07:40] LABS: BASOPHILS 0 % (0-2); EOSINOPHILS 0.3 % (0-7); HEMATOCRIT 28.5 % (42.0-54.0); HEMOGLOBIN 9.5 g/dL (13.5-17.5); IMMATURE GRANULOCYTES 0.2 % (0-5); LYMPHOCYTES 10.4 % (15-50); MCH 31.8 pg (26.0-34.0); MCHC 33.3 g/dL (31.0-37.0); MCV 95.3 fL (80.0-100.0); MEAN PLATELET VOLUME 9.8 fL (7.4-10.4); MONOCYTES 5.6 % (2-11); NEUTROPHILS 83.5 % (40-80); PLATELET COUNT 262 10x3/uL (130-400); RBC 2.99 10x6/uL (4.20-6.10); RDW 16.1 % (11.5-14.5)
[2019-01-21 07:48] LABS: INR 2.26 (0.85-1.17); PROTIME 24.3 SECONDS (11.6-15.0)
[2019-01-21 07:54] LABS: CALC OSMOLALITY 278 mosm/kg (275-300); CALCIUM 7.7 mg/dL (8.5-10.1); CARBON DIOXIDE 27.4 mmol/L (21.0-32.0); CHLORIDE - SERUM 106 mmol/L (98-107); GLUCOSE 90 mg/dL (74-106); POTASSIUM - SERUM 3.7 mmol/L (3.5-5.1); SODIUM 138 mmol/L (136-145); UREA NITROGEN 21 mg/dL (7-18); eGFR NON AFRICAN AMERICAN 76 mL/min (90-120)
[2019-01-21 07:57] VITALS: BP 119/67
[2019-01-21] MEDS ORDERED: MEDROL DOSE PACK4 MG PO (08:30)
--- NOTE | 2019-01-21 09:14 | NUR ---
PATIENT DISCHARGING TO [facility] TODAY VIA FACILITY VAN. NO HOME HEALTH OR DME NEEDED AT THIS TIME. AN APPOINTMENT WITH DR. RILEY AND DR. CORNELIO NORRIS WILL BE MADE AT TIME OF DSICHARGE FROM FACILITY. PATIENT CHOICE FORM (HAND OUT GIVEN) AND IMFM FORMS SIGNED, COPY GIVEN TO PATIENT AND FILED IN CHART. DISCHARGE INSTRUCTIONS REVIEWED WITH PATIENT AND FAXED TO SNF AND PCP.
--- NOTE | 2019-01-21 10:09 | NUR ---
The patient is awake and alert, he is pleasant, denies needs. He continues to wear his O2 at 2L/M. He is sitting up in bed.
--- NOTE | 2019-01-21 10:35 | NUR ---
REPORT CALLED TO LENORA AT [facility]. DC PAPERWORK GONE OVER AND SIGNED WITH PT. AWAITING TRANSPORTATION SCHEDULED AROUND [id number]
--- NOTE | 2019-01-21 11:55 | NUR ---
PT PICKED UP AT THIS TIME BY [employer] AND JOSÉ TO [facility]. ALL VALUBLES REMOVED FROM ROOM AND SENT WITH PT.
== END 2019-01-21 12:07 | DRG 91 ==
LOC: D.REHAB 17:50
PROVIDERS: ADMIT Emergency Medicine; ATTEND Emergency Medicine
DX: G72.89 Other specified myopathies (principal); I21.4 Non-ST elevation (NSTEMI) myocardial infarction; J96.11 Chronic respiratory failure with hypoxia; I10 Essential (primary) hypertension; E78.5 Hyperlipidemia, unspecified; E03.9 Hypothyroidism, unspecified; J44.9 Chronic obstructive pulmonary disease, unspecified; I25.10 Atherosclerotic heart disease of native coronary artery without angina pectoris; Z79.01 Long term (current) use of anticoagulants; F41.8 Other specified anxiety disorders; M47.9 Spondylosis, unspecified; I95.9 Hypotension, unspecified; D64.9 Anemia, unspecified; K29.70 Gastritis, unspecified, without bleeding; Z86.711 Personal history of pulmonary embolism; K21.0 Gastro-esophageal reflux disease with esophagitis

== ENCOUNTER 2019-04-15 10:27 | Outpatient (CLI) | payer MEDICARE ==
[~2019-04-15] VITALS: Ht 172.7 cm; Wt 79.5 kg
[~2019-04-15 10:27] MED LIST changes: +MEDROL DOSE PACK4 MG PO
[2019-04-15 11:29] VITALS: BP 121/69; Ht 172.7 cm; Wt 79.5 kg
--- NOTE | 2019-04-15 17:16 | NUR ---
1710 IV REMOVED AND PT ASSISTED WITH USING THE THE URINAL. SMALL AMT OF CLEAR YELLOW URINE. PT WIPED PENIS SCANT AMT OF PINK TINGE NOTED ON TISSUE.
== END 2019-04-15 17:21 | disposition home or self-care (01) ==
LOC: D.OPS 10:27
PROVIDERS: ATTEND Family Medicine
DX: D64.9 Anemia, unspecified (principal)

== ENCOUNTER 2019-05-25 16:25 | Inpatient (IN) | payer MEDICARE ==
[~2019-05-25] VITALS: Ht 172.7 cm; Wt 63.5 kg
[2019-05-25 17:14] VITALS: BP 135/78
[2019-05-25 17:43] LABS: BASOPHILS 0.5 % (0-2); EOSINOPHILS 2.3 % (0-7); HEMATOCRIT 30.9 % (42.0-54.0); HEMOGLOBIN 10.9 g/dL (13.5-17.5); IMMATURE GRANULOCYTES 0.7 % (0-5); MCH 31.1 pg (26.0-34.0); MCHC 35.3 g/dL (31.0-37.0); MEAN PLATELET VOLUME 10.6 fL (7.4-10.4); MONOCYTES 7.8 % (2-11); NEUTROPHILS 72.7 % (40-80); RBC 3.51 10x6/uL (4.20-6.10); RDW 19.4 % (11.5-14.5); WBC 5.6 10x3/uL (4.8-10.8)
[2019-05-25 17:53] LABS: PLATELET COUNT 150 10x3/uL (130-400)
[2019-05-25 17:59] LABS: APTT 29.9 SECONDS (22.8-39.4); INR 1.05 (0.85-1.17); PROTIME 13.7 SECONDS (11.6-15.0)
[2019-05-25 18:01] VITALS: BP 126/70
[2019-05-25 18:13] LABS: CALC OSMOLALITY 269 mosm/kg (275-300); CALCIUM 8.9 mg/dL (8.5-10.1); CARBON DIOXIDE 25.3 mmol/L (21.0-32.0); CHLORIDE - SERUM 98 mmol/L (98-107); CREATININE - SERUM 1.2 mg/dL (0.6-1.3); GLUCOSE 100 mg/dL (74-106); POTASSIUM - SERUM 4.1 mmol/L (3.5-5.1); SODIUM 133 mmol/L (136-145); UREA NITROGEN 24 mg/dL (7-18); eGFR NON AFRICAN AMERICAN 61 mL/min (90-120)
[2019-05-25 18:33] LABS: ALBUMIN 3.1 g/dL (3.4-5.0); ALKALINE PHOSPHATASE 52 U/L (30-120); ALT (SGPT) 20 U/L (10-68); BILIRUBIN - TOTAL 0.69 mg/dL (0.2-1.3); CKMB 2.4 U/L (0.0-3.6); CREATINE KINASE 95 UL (21-232); MAGNESIUM - SERUM 1.7 mg/dL (1.8-2.4); PROTEIN - SERUM 6.7 g/dL (6.4-8.2)
[2019-05-25 18:35] LABS: TROPONIN-I 0.155 ng/mL (0.000-0.060)
[2019-05-25 19:30] VITALS: BP 136/69
--- NOTE | 2019-05-25 19:36 | NUR ---
PT USES BEDPAN X1 ASSIST. ONE SMALL LOOSE, BROWN BM NOTED. PT REPOSITIONED IN BED. DENIES FURTHER NEEDS AT THIS TIME. WILL CONTINUE TO MONITOR.
[2019-05-25 20:22] LABS: % SATURATION 29 % (15-55); IRON 44 ug/dl (35-150); TOTAL IRON BIND CAPACITY 147 ug/dl (260-445); UNSAT IRON BIND CAPACITY 103 ug/dl (150-375)
[2019-05-25 20:30] VITALS: BP 119/60
[2019-05-25 20:41] LABS: CKMB 2.6 U/L (0.0-3.6); CREATINE KINASE 96 UL (21-232)
[2019-05-25 20:44] LABS: TROPONIN-I 0.187 ng/mL (0.000-0.060)
[2019-05-25 21:30] VITALS: BP 128/72
--- NOTE | 2019-05-25 22:27 | NUR ---
PT TURNED TO LEFT SIDE LYING POSITION X2 ASSIST. PT DENIES FURTHER NEEDS. WILL CONTINUE TO MONITOR.
[2019-05-25 22:31] VITALS: BP 125/68
--- NOTE | 2019-05-25 23:09 | NUR ---
TURKEY SANDWICH AND ICE WATER PROVIDED TO PT PER REQUEST. WILL CONTINUE TO MONITOR.
[2019-05-26 00:31] VITALS: BP 139/53
[2019-05-26 02:27] LABS: EOSINOPHILS 4.4 % (0-7); HEMATOCRIT 31.1 % (42.0-54.0); HEMOGLOBIN 10.9 g/dL (13.5-17.5); IMMATURE GRANULOCYTES 0.8 % (0-5); LYMPHOCYTES 17.2 % (15-50); MCH 31.2 pg (26.0-34.0); MCV 89.1 fL (80.0-100.0); MEAN PLATELET VOLUME 9.9 fL (7.4-10.4); MONOCYTES 7.9 % (2-11); NEUTROPHILS 68.7 % (40-80); PLATELET COUNT 140 10x3/uL (130-400); RBC 3.49 10x6/uL (4.20-6.10); RDW 19.5 % (11.5-14.5)
[2019-05-26 02:28] LABS: WBC 3.9 10x3/uL (4.8-10.8)
[2019-05-26 02:45] LABS: INR 1.2 (0.85-1.17); PROTIME 15.1 SECONDS (11.6-15.0)
[2019-05-26 02:48] LABS: APTT 39.7 SECONDS (22.8-39.4)
[2019-05-26 02:49] LABS: CALC OSMOLALITY 277 mosm/kg (275-300); CALCIUM 8.2 mg/dL (8.5-10.1); CARBON DIOXIDE 27.9 mmol/L (21.0-32.0); CHLORIDE - SERUM 103 mmol/L (98-107); CKMB 2.3 U/L (0.0-3.6); CREATINE KINASE 77 UL (21-232); CREATININE - SERUM 1.3 mg/dL (0.6-1.3); GLUCOSE 110 mg/dL (74-106); MAGNESIUM - SERUM 1.7 mg/dL (1.8-2.4); POTASSIUM - SERUM 4.1 mmol/L (3.5-5.1); SODIUM 137 mmol/L (136-145); UREA NITROGEN 21 mg/dL (7-18); eGFR NON AFRICAN AMERICAN 56 mL/min (90-120)
[2019-05-26 02:50] LABS: TROPONIN-I 0.286 ng/mL (0.000-0.060)
[2019-05-26] MEDS ORDERED: COUMADIN5 MG PO (04:29)
[2019-05-26 04:35] VITALS: BP 105/66
--- NOTE | 2019-05-26 07:10 | NUR ---
REPORT RECEIVED FROM ROVING WEIGHT GAUGER AND PATIENT CARE ASSUMED. PATIENT LAYING IN BED ON BACK AWAKE, ALERT AND ORIENTED X 4. PATIENT IS STABLE AND VSS. PATIENT IS NPO AWAITING CARDIOLOGY CONSULT. WILL CONTINUE WITH PLAN OF CARE. SR UP X 2 BED IN LOW POSITION AND CALL LIGHT IN REACH.
[2019-05-26 08:04] VITALS: BP 110/63
[2019-05-26 08:57] LABS: CKMB 2.8 U/L (0.0-3.6); CREATINE KINASE 87 UL (21-232)
[2019-05-26 09:01] LABS: TROPONIN-I 0.226 ng/mL (0.000-0.060)
--- NOTE | 2019-05-26 10:25 | NUR ---
PATIENT IS STABLE AND UNCHANGED. PATIENT DENIES ANY NEEDS OR PAIN. REPOSITIONED PATIENT FOR COMFORT. WILL CONTINUE WITH PLAN OF CARE. SR UP X 2 BED IN LOW POSITION AND CALL LIGHT IN REACH.
[2019-05-26 12:34] VITALS: BP 106/49
[2019-05-26 13:06] VITALS: Ht 172.7 cm; Wt 63.5 kg
--- NOTE | 2019-05-26 13:53 | NUR ---
PATIENT RESTING QUIETLY IN BED. WILL CONTINUE TO MONITOR. SR UP X 2 BED IN LOW POSITION AND CALL LIGHT IN REACH.
[2019-05-26 16:11] VITALS: BP 99/57
--- NOTE | 2019-05-26 18:05 | NUR ---
OT NOTE: PT REQUIRED MIN A FOR ADLS IN STANDING. PT COMPLETED ADL MOB WITH CGA/MIN A. PT COMPLETED HAND HYGIENE TASK AT SINK WITH MIN A. [phone] THANK YOU,ELMA LEBRON
--- NOTE | 2019-05-26 19:24 | NUR ---
RECEIVED BEDSIDE REPORT. PATIENT IS ALERT AND ORIENTED, RESTING COMFORTABLY IN BED. RESPIRATIONS ARE EVEN AND UNLABORED. NO S/S OF DISTRESS. NO C/OPAIN. CALL IGHT WITHIN REACH. WILL CPOC.
[2019-05-26 20:00] VITALS: BP 104/66
[2019-05-27] VITALS: BP 91/54
[2019-05-27 04:00] VITALS: BP 91/57
[2019-05-27 05:38] LABS: ANION GAP 9.6 mmol/L (8-16); CALCIUM 7.7 mg/dL (8.5-10.1); CARBON DIOXIDE 25.4 mmol/L (21.0-32.0); CREATININE - SERUM 1.3 mg/dL (0.6-1.3); MAGNESIUM - SERUM 1.7 mg/dL (1.8-2.4)
[2019-05-27 05:43] LABS: BASOPHILS 0.8 % (0-2); EOSINOPHILS 6.6 % (0-7); HEMATOCRIT 27.5 % (42.0-54.0); HEMOGLOBIN 9.4 g/dL (13.5-17.5); IMMATURE GRANULOCYTES 0.8 % (0-5); MCH 31.1 pg (26.0-34.0); MCHC 34.2 g/dL (31.0-37.0); MEAN PLATELET VOLUME 11.1 fL (7.4-10.4); MONOCYTES 5.9 % (2-11); NEUTROPHILS 70.9 % (40-80); PLATELET COUNT 127 10x3/uL (130-400); RBC 3.02 10x6/uL (4.20-6.10); RDW 19.8 % (11.5-14.5); WBC 3.9 10x3/uL (4.8-10.8)
[2019-05-27 05:47] LABS: MCV 91.1 fL (80.0-100.0)
--- NOTE | 2019-05-27 07:10 | NUR ---
REPORT RECIEVED FROM TOOL AND DIE TECHNICIAN AND PATIENT CARE RECEVED. PATIENT LAYING IN BED ON BACK WITH EYES CLOSED AND BREATHING EVENLY. WILL CONTINUE WITH PLAN OF CARE. SR UPX 2 BED IN LOW POSITION AND CALL LIGHT IN REACH.
--- NOTE | 2019-05-27 07:10 | NUR ---
REPORT RECEIVED FROM OCCUPATIONAL THERAPY CO DIRECTOR AND PATIENT CARE ASSUMED. PATIENT LAYING IN BED ON BACK WITH EYES CLOSED AND BREATHING EVENLY. WILL CONTINUE WITH PLAN OF CARE. SR UP X 2 BED IN LOW POSITION AND CALL LIGHT IN REACH. SR UP X 2 BED IN LOW POSITION AND CALL LIGHT IN REACH.
[2019-05-27 09:55] VITALS: BP 118/65
--- NOTE | 2019-05-27 12:07 | NUR ---
OT NOTE: PT DOING BETTER TODAY. C/O PAIN IN B HEELS.. REDNESS NOTED BUT NO BREAKDOWN. PROVIDED HEEL PROTECTORS FOR WHEN PT RETURNS TO BED. BED MOB WITH MIN ASSIST. ABLE TO WASH HANDS AND FACE WITH SET UP; MAX ASSIST WITH BACK AND LES; ABLE TO [place] WITH MIN ASSIST. ; SIT TO STAND WITH WALKER AND MIN ASSIST; AMBULATED TO DOOR AND BACK (APPROX 16') WITH WALKER AND MIN ASSIST; PRACTICED TRANSFER TRAINING AND EDUCATION PROVIDED FOR STAND TO SIT. PT REQUIRES SEVERAL MIN TO STRETCH ANKLES AND GASTROC TENDONS, THEY ARE TIGHT, CAUSING PT TO AMB ON HIS TOES. IMPROVED SLIGHTLY FOLLOWING STRETCHING IN WT BEARING. SUSIE GARCIA, OTR/L [phone]
--- NOTE | 2019-05-27 16:32 | NUR ---
PATIENT SITTING UP IN BS CHAIR . GOT PATIENT CUP OF COFFEE. PATIENT IS STABLE AND VSS. PATIENT DENIES ANY NEEDS OR PAIN. WILL CONTINUE TO MONITOR. SR UP X 2 BED IN LOW POSITION AND CALL LIGHT IN REACH.
--- NOTE | 2019-05-27 16:37 | MORECARE ---
CASE MANAGEMENT DISCHARGE SUMMARY PATIENT: JOSE ROTHMAN UNIT: [id number] ADM DATE: 05/26/19 AGE: 84 : 37 SEX: M ROOM/BED: D.3696 AUTHOR: MADI,DOC PHYSICIAN: REFERRING PHYSICIAN: GORDON ALVARADO MD DATE OF SERVICE: 05/27/19 Discharge Plan Patient Name: JOSE ROTHMAN Facility: [facility]:[place] : 1935 Planned Disposition: Home with Home Health Anticipated Discharge Date: 05/28/19 Discharge Date: Expected LOS: 2 Initial Reviewer: [email or web address] Initial Review Date: 05/27/2019 Generated: 05/27/19 5:37 pm DCP- Discharge Planning Updated by [email or web address]: Susana De Los Santos on 05/27/19 7:[address] MEI SERVED, EXPLAINED, AND SIGNED BY PATIENT. THE ORIGINAL WAS PROVIDED TO THE PATIENT AND COPY PLACED ON CHART. DCPIA - Discharge Planning Initial Assessment Updated by [email or web address]: Aleksey Sun on 05/27/19 4:34 pm * Is the patient Alert and Oriented? Yes * How many steps to enter\exit or inside your home? RAMP * PCP DR RILEY * Pharmacy [facility] [address] * Preadmission Environment Home with Family * ADLs Independent * Equipment Cane CPAP Hospital Bed Oxygen Rolling Walker Wheelchair * Other Equipment ROLLATOR WALKER OXYGEN AT NIGHT; [facility] (PATIENT NOT USING) NOT USING CPAP * List name and contact numbers for known caregivers / representatives who currently or will assist patient after discharge: JAYODN ROTHMAN, SPOUSE, * Verbal permission to speak to the caregivers and representatives has been obtained from the patient. N/A * Community resources currently utilized Home Health * Please name any agencies selected above. [facility] * Additional services required to return to the preadmission environment? No * Can the patient safely return to the preadmission environment? Yes * Has this patient been hospitalized within the prior 30 days at any hospital? No Coverage Notice Reviewer: [id number] - Susana De Los Santos Notice Issued Date-Time: 05/26/2019 8:39 Notice Type: Medicare Outpatient Observation Notice Notice Delivered To: Patient Relationship to Patient: Business System Manager Name: Delivery Method: HAND - Hand Delivered Mariela Days: Prior Verbal Notification: Recipient Understood Notice: Yes Recipient Signature: Yes Med Rec Note Co-signed by Attending: Coverage Notice Comment: MEI SERVED, EXPLAINED, AND SIGNED BY PATIENT. THE ORIGINAL WAS PROVIDED TO THE PATIENT AND COPY PLACED ON CHART. Patient Name: JOSE ROTHMAN Page [phone] at 1637 All edits/amendments must be made on the electronic document DICTATION DATE: 05/27/19 1637 SUPERVISOR SCREEN PRINTING: BARBARA 05/27/19 1637 RPT#: [id number] DC DATE: STATUS: ADM IN [facility] [address] [place] [address] END OF REPORT
--- NOTE | 2019-05-27 16:46 | MORECARE ---
CASE MANAGEMENT DISCHARGE SUMMARY PATIENT: JOSE ROTHMAN UNIT: [id number] ADM DATE: 05/26/19 AGE: 84 : 37 SEX: M ROOM/BED: D.9586 AUTHOR: MADI,DOC PHYSICIAN: REFERRING PHYSICIAN: GORDON ALVARADO MD DATE OF SERVICE: 05/27/19 Discharge Plan Patient Name: JOSE ROTHMAN Facility: [facility]:[place] : 1935 Planned Disposition: Home with Home Health Anticipated Discharge Date: 05/28/19 Discharge Date: Expected LOS: 2 Initial Reviewer: [id number] Initial Review Date: 05/27/2019 Generated: 05/27/19 5:46 pm DCP- Discharge Planning Updated by [email or web address]: Aleksey Sun on 05/27/19 3:[address] Patient Name: JOSE ROTHMAN Admission Status: ER Accout number: [id number] Admission Date: 05-26-2019 : 1935 Admission Diagnosis: Attending: GORDON CONNER Current LOS: 1 Anticipated DC Date: 05-28-2019 Planned Disposition: Home with Home Health Primary Insurance: MEDICARE A & B PLANNED EXTERNAL PROVIDER: [facility] Discharge Planning Comments: CM MET WITH PT IN ROOM TO DISCUSS DISCHARGE PLANNING AND NEEDS. PT REPORTS LIVING AT HOME INDEPENDENTLY WITH HIS SPOUSE. PT HAS HOME OXYGEN THAT HE DOES NOT USE, A CPAP THAT HE DOES NOT USE, WHEELCHAIR, HOSPITAL BED, CANE AND ROLLATOR WALKER FROM [facility]. PT HAS HOME HEALTH NURSING AND THERAPY WITH [facility]. CM DISCUSSED AVAILABILITY OF HOME HEALTH, REHAB SERVICES AND MEDICAL EQUIPMENT. PT DENIES DISCHARGE NEEDS, WANTS HOME HEALTH RESUMPTION WITH [facility], CHOICE SIGNED. PT REPORTS HIS WILL PICK HIM UP FOR DISCHARGE HOME. IMPORTANT MESSAGE FROM MEDICARE PROVIDED AND EXPLAINED. CM SPOKE TO CECY OF [facility], , INFORMED OF DISCHARGE TOMORROW. CM FAXED UPDATE TO [facility] AT [phone]. FOR DISCHARGE HOME AND RESUMPTION OF HOME HEALTH SERVICES, NOTIFY [facility] AT [phone], FAX DISCHARGE INFORMATION TO [facility] AT [phone]. Knowledge Engineer: Aleksey Sun DCP- Discharge Planning Updated by [email or web address]: Susana De Los Santos on 05/27/19 7:[address] MEI SERVED, EXPLAINED, AND SIGNED BY PATIENT. THE ORIGINAL WAS PROVIDED TO THE PATIENT AND COPY PLACED ON CHART. DCPIA - Discharge Planning Initial Assessment Updated by [id number]: Aleksey Sun on 05/27/19 4:34 pm * Is the patient Alert and Oriented? Yes * How many steps to enter\exit or inside your home? RAMP * PCP DR RILEY * Pharmacy [facility] [address] * Preadmission Environment Home with Family * ADLs Independent * Equipment Cane CPAP Hospital Bed Oxygen Rolling Walker Wheelchair * Other Equipment ROLLATOR WALKER OXYGEN AT NIGHT; [facility] (PATIENT NOT USING) NOT USING CPAP * List name and contact numbers for known caregivers / representatives who currently or will assist patient after discharge: JAYDON ROTHMAN, SPOUSE, * Verbal permission to speak to the caregivers and representatives has been obtained from the patient. N/A * Community resources currently utilized Home Health * Please name any agencies selected above. [facility] * Additional services required to return to the preadmission environment? No * Can the patient safely return to the preadmission environment? Yes * Has this patient been hospitalized within the prior 30 days at any hospital? No External Providers External Provider: [facility] Next Contact Date: 05/27/2019 Service Request Date: Service Type: Resolution: Reviewer: Comments: Coverage Notice Reviewer: [email or web address] - Susana De Los Santos Notice Issued Date-Time: 05/26/2019 8:39 Notice Type: Medicare Outpatient Observation Notice Notice Delivered To: Patient Relationship to Patient: Geophysics Teacher Name: Delivery Method: HAND - Hand Delivered Mariela Days: Prior Verbal Notification: Recipient Understood Notice: Yes Recipient Signature: Yes Med Rec Note Co-signed by Attending: Coverage Notice Comment: MEI SERVED, EXPLAINED, AND SIGNED BY PATIENT. THE ORIGINAL WAS PROVIDED TO THE PATIENT AND COPY PLACED ON CHART. Reviewer: [id number] - Aleksey Sun Notice Issued Date-Time: 05/27/2019 16:10 Notice Type: IM Discharge Notice Notice Delivered To: Patient Relationship to Patient: Geophysics Teacher Name: Delivery Method: HAND - Hand Delivered Mariela Days: Prior Verbal Notification: Recipient Understood Notice: Yes Recipient Signature: Yes Med Rec Note Co-signed by Attending: Coverage Notice Comment: Last DP export: 05/27/19 3:37 pm Patient Name: JOSE ROTHMAN Page [id number] at 1646 All edits/amendments must be made on the electronic document DICTATION DATE: 05/27/191645 E COMMERCE DEVELOPER: BARBARA 05/27/191645 RPT#: [id number] DC DATE: STATUS: ADM IN [facility] [address] [place] [address] END OF REPORT
--- NOTE | 2019-05-27 16:58 | NUR ---
OT NOTE: (AM SESSION) PT COMPLETED BED MOB WITH MIN A. PT REQUIRED MIN/MOD A WITH ADL MOB SECONDARY TO MUSCLE AND TENDON TIGHTNESS. PT EXHIBITED DIFFICULTY WITH BEARING WT ON HEELS. PT COMPLETED UB HYGIENE TASKS AT EOB WITH SETUP. PT REQUIRED EXTRA TIME AND ASSISTANCE WITH AM SESSION. (PM SESSION) PT COMPLETED UE FM SKILLS FOR ADL TASKS. PT COMPLETED FACE WASH WITH SET UP. PT HAS C/O PAIN IN SHOULDER AREA. NURSING NOTIFIED. [phone] THANK YOU,ELMA LEBRON
[2019-05-27 20:00] VITALS: BP 102/57
--- NOTE | 2019-05-27 22:42 | NUR ---
INITAIL ROUNDS COMPLETED AT 1915 HRS. PT DENIED ANY DISCOMFORT. ASSESSMENT COMPLETED AT 2015 HRS. VSS. SR PER CM HR 83. ALERT AND ORIENTED TO PERSON,PLACE AND TIME. JEFFRIES. LUNGS DIMINISHED IN BASES BILAT. ABD SOFT WTIH ACTIVE BS NOTED. IV TO R WRIST SL. MEPILEX TO BUTTOCKS INTACT. DRESSING TO LATERAL ASPECT OF L CALF CLEAN,DRY AND INTACT. ASUTEN HOSE IN PLACE. TOES WARM TO TOUCH WITH BRISK CAP REFILL. PT DECLINED PM NEURONTIN. PT CURRENTLY RESTIN WITH EYES CLOSED. RESP EVEN AND REGULAR. SR UP X2, CALL LIGHT WITHIN REACH.
--- NOTE | 2019-05-27 23:35 | NUR ---
PT AWAKE; DENIES ANY DISCOMFORT. SR UP X2, CALL LIGHT WITHIN REACH.
[2019-05-28] VITALS: BP 105/58
--- NOTE | 2019-05-28 02:12 | NUR ---
PT AWAKE; DENIES ANY DISCOMFORT. SR UP X2, CALL LIGHT WITHIN REACH.
[2019-05-28 04:00] VITALS: BP 103/58
--- NOTE | 2019-05-28 04:03 | NUR ---
PT RESTING WITH EYES CLOSED. RESP EVEN AND REGULAR. SR UP X2, CALL LIGHT WITHIN REACH.
--- NOTE | 2019-05-28 05:59 | NUR ---
VSS THROUGHOUT NIGHT. SR PER CM. PT DENIED ANY DISCOMFORT. NEEDS MET; WILL CONTINUE TO MONITOR.
[2019-05-28 06:14] LABS: BASOPHILS 1.2 % (0-2); EOSINOPHILS 7.8 % (0-7); HEMOGLOBIN 9.7 g/dL (13.5-17.5); IMMATURE GRANULOCYTES 1.2 % (0-5); LYMPHOCYTES 17.5 % (15-50); MCH 31.2 pg (26.0-34.0); MCHC 34.6 g/dL (31.0-37.0); MEAN PLATELET VOLUME 10.8 fL (7.4-10.4); MONOCYTES 7.2 % (2-11); NEUTROPHILS 65.1 % (40-80); PLATELET COUNT 141 10x3/uL (130-400); RBC 3.11 10x6/uL (4.20-6.10); RDW 19.8 % (11.5-14.5); WBC 3.3 10x3/uL (4.8-10.8)
[2019-05-28 06:18] LABS: ANION GAP 9.6 mmol/L (8-16); CALCIUM 7.9 mg/dL (8.5-10.1); CARBON DIOXIDE 26.8 mmol/L (21.0-32.0); CREATININE - SERUM 1.1 mg/dL (0.6-1.3); MAGNESIUM - SERUM 1.7 mg/dL (1.8-2.4); POTASSIUM - SERUM 4.4 mmol/L (3.5-5.1)
--- NOTE | 2019-05-28 07:15 | NUR ---
RECEIVED PT IN BED EYES CLOSED RESP UNLABORED SKIN W/D COLOR WNL NAD NOTED
[2019-05-28 09:10] VITALS: BP 118/59
[2019-05-28 12:00] VITALS: BP 146/84
--- NOTE | 2019-05-28 16:14 | NUR ---
REVIEWED DISCHARGE INSTRUCTIONS WITH PT STATES UNDERSTANDING COPY GIVEN DCD SALINE LOCK TO RT WRIST WITH IV CATHETER INTACT SITE FREE OF REDNESS OR EDEMA PT DISCHARGED HOME LEFT UNIT VIA W/C IN STABLE CONDITION WITH ALL PERSONAL BELONGINGS
--- NOTE | 2019-05-30 09:30 | MORECARE ---
CASE MANAGEMENT DISCHARGE SUMMARY PATIENT: JOSE ROTHMAN UNIT: [id number] ADM DATE: 05/26/19 AGE: 84 : 37 SEX: M ROOM/BED: D.2866 AUTHOR: MADI,DOC PHYSICIAN: REFERRING PHYSICIAN: GORDON ALVARADO MD DATE OF SERVICE: 05/30/19 Discharge Plan Patient Name: JOSE ROTHMAN Facility: [facility]:[place] : 1935 Planned Disposition: Home with Home Health Anticipated Discharge Date: 05/28/19 Discharge Date: 05/28/2019 Expected LOS: 2 Initial Reviewer: [id number] Initial Review Date: 05/27/2019 Generated: 05/30/19 10:30 am DCP- Discharge Planning Updated by [email or web address]: Aleksey Sun on 05/27/19 2:[address] Patient Name: JOSE ROTHMAN Admission Status: ER Accout number: [id number] Admission Date: 05-26-2019 : 1935 Admission Diagnosis: Attending: GORDON CONNER Current LOS: 1 Anticipated DC Date: 05-28-2019 Planned Disposition: Home with Home Health Primary Insurance: MEDICARE A & B PLANNED EXTERNAL PROVIDER: [facility] Discharge Planning Comments: CM MET WITH PT IN ROOM TO DISCUSS DISCHARGE PLANNING AND NEEDS. PT REPORTS LIVING AT HOME INDEPENDENTLY WITH HIS SPOUSE. PT HAS HOME OXYGEN THAT HE DOES NOT USE, A CPAP THAT HE DOES NOT USE, WHEELCHAIR, HOSPITAL BED, CANE AND ROLLATOR WALKER FROM [facility]. PT HAS HOME HEALTH NURSING AND THERAPY WITH [facility]. CM DISCUSSED AVAILABILITY OF HOME HEALTH, REHAB SERVICES AND MEDICAL EQUIPMENT. PT DENIES DISCHARGE NEEDS, WANTS HOME HEALTH RESUMPTION WITH [facility], CHOICE SIGNED. PT REPORTS HIS WILL PICK HIM UP FOR DISCHARGE HOME. IMPORTANT MESSAGE FROM MEDICARE PROVIDED AND EXPLAINED. CM SPOKE TO CECY OF [facility], , INFORMED OF DISCHARGE TOMORROW. CM FAXED UPDATE TO [facility] AT [phone]. FOR DISCHARGE HOME AND RESUMPTION OF HOME HEALTH SERVICES, NOTIFY [facility] AT [phone], FAX DISCHARGE INFORMATION TO [facility] AT [phone]. Decating Machine Operator: Aleksey Sun DCP- Discharge Planning Updated by [id number]: Susana De Los Santos on 05/27/19 6:[address] HAMIDA SERVED, EXPLAINED, AND SIGNED BY PATIENT. THE ORIGINAL WAS PROVIDED TO THE PATIENT AND COPY PLACED ON CHART. DCPIA - Discharge Planning Initial Assessment Updated by [id number]: Aleksey Sun on 05/27/19 4:34 pm * Is the patient Alert and Oriented? Yes * How many steps to enter\exit or inside your home? RAMP * PCP DR RILEY * Pharmacy [facility] [address] * Preadmission Environment Home with Family * ADLs Independent * Equipment Cane CPAP Hospital Bed Oxygen Rolling Walker Wheelchair * Other Equipment ROLLATOR WALKER OXYGEN AT NIGHT; [facility] (PATIENT NOT USING) NOT USING CPAP * List name and contact numbers for known caregivers / representatives who currently or will assist patient after discharge: JAYDON ROTHMAN, SPOUSE, * Verbal permission to speak to the caregivers and representatives has been obtained from the patient. N/A * Community resources currently utilized Home Health * Please name any agencies selected above. [facility] * Additional services required to return to the preadmission environment? No * Can the patient safely return to the preadmission environment? Yes * Has this patient been hospitalized within the prior 30 days at any hospital? No Coverage Notice Reviewer: [id number] - Susana Magali Notice Issued Date-Time: 05/26/2019 8:39 Notice Type: Medicare Outpatient Observation Notice Notice Delivered To: Patient Relationship to Patient: Range Operator Name: Delivery Method: HAND - Hand Delivered Mariela Days: Prior Verbal Notification: Recipient Understood Notice: Yes Recipient Signature: Yes Med Rec Note Co-signed by Attending: Coverage Notice Comment: MEI SERVED, EXPLAINED, AND SIGNED BY PATIENT. THE ORIGINAL WAS PROVIDED TO THE PATIENT AND COPY PLACED ON CHART. Reviewer: [id number] Adán Sun Notice Issued Date-Time: 05/27/2019 16:10 Notice Type: IM Discharge Notice Notice Delivered To: Patient Relationship to Patient: Range Operator Name: Delivery Method: HAND - Hand Delivered Mariela Days: Prior Verbal Notification: Recipient Understood Notice: Yes Recipient Signature: Yes Med Rec Note Co-signed by Attending: Coverage Notice Comment: Reviewer: [id number] Adán Sun Notice Issued Date-Time: 05/27/2019 16:10 Notice Type: Patient Choice Letter Notice Delivered To: Patient Relationship to Patient: Range Operator Name: Delivery Method: HAND - Hand Delivered Mariela Days: Prior Verbal Notification: Recipient Understood Notice: Yes Recipient Signature: Yes Med Rec Note Co-signed by Attending: Coverage Notice Comment: [facility] Last DP export: 05/27/19 2:46 pm Patient Name: JOSE ROTHMAN Page [id number] at 0930 All edits/amendments must be made on the electronic document DICTATION DATE: 05/30/19929 VP PATIENT: BARBARA 05/30/19929 RPT#: [id number] DC DATE:05/28/19 STATUS: DIS [facility] [address] [place] [address] END OF REPORT
--- NOTE | 2019-05-30 09:39 | MORECARE ---
CASE MANAGEMENT DISCHARGE SUMMARY PATIENT: JOSE ROTHMAN UNIT: [id number] ADM DATE: 05/26/19 AGE: 84 : 37 SEX: M ROOM/BED: D.2116 AUTHOR: MADI,DOC PHYSICIAN: REFERRING PHYSICIAN: GORDON ALVARADO MD DATE OF SERVICE: 05/30/19 Discharge Plan Patient Name: JOSE ROTHMAN Facility: [facility]:[place] : 1935 Planned Disposition: Home with Home Health Anticipated Discharge Date: 05/28/19 Discharge Date: 05/28/2019 Expected LOS: 2 Initial Reviewer: [id number] Initial Review Date: 05/27/2019 Generated: 05/30/19 10:39 am Comments DCP- Discharge Planning Updated by [id number]: Aleksey Sun on 05/30/19 8:[address] Patient Name: JOSE ROTHMAN Encounter No: [id number] : 1935 Primary Insurance: MEDICARE A & B Anticipated DC Date: 05-28-2019 Planned Disposition: Home with Home Health External Planned Provider: [facility] DCP follow-up note: CM REVIEWED CHART, PT DISCHARGED HOME OVER WEEKEND; CM CALLED AND NOTIFIED LANDON OF [facility] AT [phone]. LANDON STATES THAT [facility]EL[facility]ARE[facility] DID CALL AND FAX DISCHARGE INFORMATION OVER WEEKEND FOR RESUMPTION OF HOME HEALTH. Terrapin Fisher: Aleksey Sun DCP- Discharge Planning Updated by [id number]: Aleksey Sun on 05/27/19 2:[address] Patient Name: JOSE ROTHMAN Admission Status: ER Accout number: [id number] Admission Date: 05-26-2019 : 1935 Admission Diagnosis: Attending: GORDON CONNER Current LOS: 1 Anticipated DC Date: 05-28-2019 Planned Disposition: Home with Home Health Primary Insurance: MEDICARE A & B PLANNED EXTERNAL PROVIDER: [facility] Discharge Planning Comments: CM MET WITH PT IN ROOM TO DISCUSS DISCHARGE PLANNING AND NEEDS. PT REPORTS LIVING AT HOME INDEPENDENTLY WITH HIS SPOUSE. PT HAS HOME OXYGEN THAT HE DOES NOT USE, A CPAP THAT HE DOES NOT USE, WHEELCHAIR, HOSPITAL BED, CANE AND ROLLATOR WALKER FROM [facility] [place]. PT HAS HOME HEALTH NURSING AND THERAPY WITH [facility]. CM DISCUSSED AVAILABILITY OF HOME HEALTH, REHAB SERVICES AND MEDICAL EQUIPMENT. PT DENIES DISCHARGE NEEDS, WANTS HOME HEALTH RESUMPTION WITH [facility], CHOICE SIGNED. PT REPORTS HIS WILL PICK HIM UP FOR DISCHARGE HOME. IMPORTANT MESSAGE FROM MEDICARE PROVIDED AND EXPLAINED. CM SPOKE TO CECY OF [facility], , INFORMED OF DISCHARGE TOMORROW. CM FAXED UPDATE TO [place] AT [phone]. FOR DISCHARGE HOME AND RESUMPTION OF HOME HEALTH SERVICES, NOTIFY [facility] AT [phone], FAX DISCHARGE INFORMATION TO [place] [facility] AT [phone]. Terrapin Fisher: Aleksey Sun DCP- Discharge Planning Updated by [email or web address]: Susana De Los Santos on 05/27/19 6:[address] MEI SERVED, EXPLAINED, AND SIGNED BY PATIENT. THE ORIGINAL WAS PROVIDED TO THE PATIENT AND COPY PLACED ON CHART. DCPIA - Discharge Planning Initial Assessment Updated by [id number]: Aleksey Sun on 05/27/19 4:34 pm * Is the patient Alert and Oriented? Yes * How many steps to enter\exit or inside your home? RAMP * PCP DR RILEY * Pharmacy [facility] [address] * Preadmission Environment Home with Family * ADLs Independent * Equipment Cane CPAP Hospital Bed Oxygen Rolling Walker Wheelchair * Other Equipment ROLLATOR WALKER OXYGEN AT NIGHT; [facility] (PATIENT NOT USING) NOT USING CPAP * List name and contact numbers for known caregivers / representatives who currently or will assist patient after discharge: JAYDON ROTHMAN, SPOUSE, * Verbal permission to speak to the caregivers and representatives has been obtained from the patient. N/A * Community resources currently utilized Home Health * Please name any agencies selected above. [facility] * Additional services required to return to the preadmission environment? No * Can the patient safely return to the preadmission environment? Yes * Has this patient been hospitalized within the prior 30 days at any hospital? No Coverage Notice Reviewer: [id number] - Aleksey Sun Notice Issued Date-Time: 05/27/2019 16:10 Notice Type: Patient Choice Letter Notice Delivered To: Patient Relationship to Patient: Terminal Make Up Operator Name: Delivery Method: HAND - Hand Delivered Mariela Days: Prior Verbal Notification: Recipient Understood Notice: Yes Recipient Signature: Yes Med Rec Note Co-signed by Attending: Coverage Notice Comment: [facility] Reviewer: [id number] - Susana Edds Notice Issued Date-Time: 05/26/2019 8:39 Notice Type: Medicare Outpatient Observation Notice Notice Delivered To: Patient Relationship to Patient: Terminal Make Up Operator Name: Delivery Method: HAND - Hand Delivered Mariela Days: Prior Verbal Notification: Recipient Understood Notice: Yes Recipient Signature: Yes Med Rec Note Co-signed by Attending: Coverage Notice Comment: MEI SERVED, EXPLAINED, AND SIGNED BY PATIENT. THE ORIGINAL WAS PROVIDED TO THE PATIENT AND COPY PLACED ON CHART. Reviewer: [id number] - Aleksey Sun Notice Issued Date-Time: 05/27/2019 16:10 Notice Type: IM Discharge Notice Notice Delivered To: Patient Relationship to Patient: Terminal Make Up Operator Name: Delivery Method: HAND - Hand Delivered Mariela Days: Prior Verbal Notification: Recipient Understood Notice: Yes Recipient Signature: Yes Med Rec Note Co-signed by Attending: Coverage Notice Comment: Last DP export: 05/30/19 8:30 am Patient Name: JOSE ROTHMAN Page [id number] at 0939 All edits/amendments must be made on the electronic document DICTATION DATE: 05/30/19938 MECHANIC: BARBARA 05/30/19938 RPT#: [id number] DC DATE:05/28/19 STATUS: DIS IN [facility] [address] [place] [address] END OF REPORT
== END 2019-05-28 16:14 | disposition home health service (06) | DRG 280 ==
LOC: D.ER 16:25 → D.M2 22:56 → OBSVTIME 22:56 → D.M2 05-26 17:29
PROVIDERS: Emergency Medicine; Family Medicine; Family Medicine Adult Medicine; ADMIT Family Medicine; ATTEND Family Medicine
DX: I21.4 Non-ST elevation (NSTEMI) myocardial infarction (principal); J96.21 Acute and chronic respiratory failure with hypoxia; N17.9 Acute kidney failure, unspecified; E87.1 Hypo-osmolality and hyponatremia; I25.110 Atherosclerotic heart disease of native coronary artery with unstable angina pectoris; I73.9 Peripheral vascular disease, unspecified; J44.9 Chronic obstructive pulmonary disease, unspecified; D64.9 Anemia, unspecified; E03.9 Hypothyroidism, unspecified; I10 Essential (primary) hypertension; M19.011 Primary osteoarthritis, right shoulder; M75.101 Unspecified rotator cuff tear or rupture of right shoulder, not specified as traumatic; I08.3 Combined rheumatic disorders of mitral, aortic and tricuspid valves; Z79.01 Long term (current) use of anticoagulants; E78.5 Hyperlipidemia, unspecified; F41.8 Other specified anxiety disorders; E83.42 Hypomagnesemia; Z86.711 Personal history of pulmonary embolism

== ENCOUNTER → 2019-06-15 12:47 | Outpatient (CLI) | payer MEDICARE ==
[2019-05-26 13:06] VITALS: BMI 21.2
[2019-06-15 13:52] LABS: INR 1.29 (0.85-1.17); PROTIME 15.2 SECONDS (11.6-15.0)
== END | disposition home or self-care (01) ==
LOC: D.LABREF 12:47
PROVIDERS: ATTEND Emergency Medicine
DX: Z79.899 Other long term (current) drug therapy (principal)

== ENCOUNTER → 2019-06-22 11:23 | Outpatient (CLI) | payer MEDICARE ==
[2019-05-26 13:06] VITALS: BMI 21.2
[2019-06-22 12:03] LABS: INR 2.16 (0.85-1.17); PROTIME 23.8 SECONDS (11.6-15.0)
== END | disposition home or self-care (01) ==
LOC: D.LABREF 11:23
PROVIDERS: ATTEND Emergency Medicine
DX: Z79.899 Other long term (current) drug therapy (principal)

== ENCOUNTER → 2019-07-06 19:47 | Outpatient (CLI) | payer MEDICARE ==
[2019-05-26 13:06] VITALS: BMI 21.2
[2019-07-06 20:07] LABS: INR 2.38 (0.85-1.17); PROTIME 25.7 SECONDS (11.6-15.0)
== END | disposition home or self-care (01) ==
LOC: D.LABREF 19:47
PROVIDERS: ATTEND Emergency Medicine
DX: I48.91 Unspecified atrial fibrillation (principal); I50.9 Heart failure, unspecified; J44.9 Chronic obstructive pulmonary disease, unspecified

== ENCOUNTER → 2019-07-19 15:27 | Outpatient (CLI) | payer MEDICARE ==
[2019-05-26 13:06] VITALS: BMI 21.2
[2019-07-19 16:56] LABS: INR 1.99 (0.85-1.17); PROTIME 22.4 SECONDS (11.6-15.0)
== END | disposition home or self-care (01) ==
LOC: D.LABREF 15:27
PROVIDERS: ATTEND Emergency Medicine
DX: Z79.01 Long term (current) use of anticoagulants (principal)

== ENCOUNTER → 2019-07-25 21:29 | Outpatient (CLI) | payer MEDICARE ==
[2019-05-26 13:06] VITALS: BMI 21.2
[2019-07-25 21:46] LABS: INR 2.06 (0.85-1.17); PROTIME 22.9 SECONDS (11.6-15.0)
== END | disposition home or self-care (01) ==
LOC: D.LABREF 21:29
PROVIDERS: ATTEND Emergency Medicine
DX: Z79.01 Long term (current) use of anticoagulants (principal)

== ENCOUNTER 2019-11-03 23:04 | Emergency (ER) | payer MEDICARE ==
[~2019-11-03] VITALS: Ht 172.7 cm; Wt 61.4 kg
[2019-11-03 23:12] VITALS: BP 162/86; Ht 172.7 cm; Wt 61.4 kg
[2019-11-03 23:31] LABS: HEMATOCRIT 29.5 % (42.0-54.0); HEMOGLOBIN 9.7 g/dL (13.5-17.5); LYMPHOCYTES 17.4 % (15-50); MCH 31.8 pg (26.0-34.0); MCHC 32.9 g/dL (31.0-37.0); MCV 96.7 fL (80.0-100.0); MEAN PLATELET VOLUME 10.2 fL (7.4-10.4); NEUTROPHILS 72.7 % (40-80); RBC 3.05 10x6/uL (4.20-6.10); RDW 16.1 % (11.5-14.5); WBC 5.7 10x3/uL (4.8-10.8)
[2019-11-03 23:32] LABS: PLATELET COUNT 172 10x3/uL (130-400)
[2019-11-03 23:40] LABS: CALCIUM 9.1 mg/dL (8.5-10.1); CARBON DIOXIDE 29.6 mmol/L (21.0-32.0); CREATININE - SERUM 1.8 mg/dL (0.6-1.3); POTASSIUM - SERUM 3.6 mmol/L (3.5-5.1)
[2019-11-03 23:42] LABS: APTT 46.2 SECONDS (22.8-39.4); INR 3.13 (0.85-1.17); PROTIME 31.6 SECONDS (11.6-15.0)
[2019-11-03 23:45] LABS: ALBUMIN 3.5 g/dL (3.4-5.0); BILIRUBIN - TOTAL 0.69 mg/dL (0.2-1.3); PROTEIN - SERUM 7.4 g/dL (6.4-8.2)
== END 2019-11-04 00:38 | disposition home or self-care (01) ==
LOC: D.ER 23:04
PROVIDERS: Emergency Medicine
DX: S51.012A Laceration without foreign body of left elbow, initial encounter (principal); D64.9 Anemia, unspecified; Z79.01 Long term (current) use of anticoagulants; Z86.73 Personal history of transient ischemic attack (TIA), and cerebral infarction without residual deficits; I10 Essential (primary) hypertension; E07.9 Disorder of thyroid, unspecified; J44.9 Chronic obstructive pulmonary disease, unspecified; Z99.81 Dependence on supplemental oxygen; W22.8XXA Striking against or struck by other objects, initial encounter; Y93.9 Activity, unspecified; Y92.9 Unspecified place or not applicable